=== PATIENT | female | born 1945 | race Caucasian/White ===

== ENCOUNTER 2020-05-10 08:32 | Outpatient (REF) | payer MEDICARE, SELFPAY ==
[2020-05-10 09:42] LABS: Hematocrit 41.2 % (37-47); Hemoglobin 13.6 g/dl (12.0-16.0); Mean Corpuscular Hemoglobin 30.9 pg (27.0-33.0); Mean Corpuscular Volume 93.6 fL (80-98); Mean Platelet Volume 9.5 fL (9.4-12.3); Platelet Count 431 X10*3/uL (160-400); Red Cell Distribution Width 13.4 % (11.0-16.0); White Blood Count 4.2 X10*3/uL (4.8-10.8)
[2020-05-10 10:12] LABS: Alanine Aminotransferase 17 U/L (0-31); Albumin Level 4.2 g/dL (3.5-5.0); Alkaline Phosphatase 48 U/L (39-117); Anion Gap 13 (12-20); Aspartate Amino Transferase 25 U/L (5-31); Bilirubin Total 0.5 mg/dL (0.0-1.0); Blood Urea Nitrogen 18 mg/dL (9-16); Calcium 8.9 mg/dL (8.4-10.2); Carbon Dioxide 28 mmol/L (22-29); Chloride 105 mmol/L (96-108); Cholesterol 210 mg/dL; Estimated Glomerular Filt Rate > 60; Glucose Random 91 mg/dL (60-115); HDL Cholesterol 73 mg/dL; LDL Cholesterol Calculated 115 mg/dl; Potassium 4.5 mmol/l (3.3-5.1); Sodium 141 mmol/L (135-145); Total Protein 6.4 g/dL (6.5-8.0); Triglycerides 110 mg/dL
[2020-05-10 10:34] LABS: Thyroid Stimulating Hormone 1.92 uIU/mL (0.32-4.0); Vitamin D 25-OH Total 50.9 ng/mL (>30)
== END 2020-05-10 08:33 | disposition home or self-care (01) ==
LOC: HO.LAB 08:32
PROVIDERS: PCP Nurse Practitioner Family; Visit Provider Nurse Practitioner Family
DX: E78.2 Mixed hyperlipidemia (principal); E03.9 Hypothyroidism, unspecified; M85.89 Other specified disorders of bone density and structure, multiple sites
CPT/HCPCS: 36415; 80053; 80061; 82306; 84443; 85027

== ENCOUNTER 2020-05-30 08:52 | Outpatient (REF) | payer MEDICARE, SELFPAY ==
--- NOTE | 2020-05-30 11:22 | MHC.AU.P13 ---
Adult Audiological Evaluation Date of Visit: 05/30/20 Clerical Manager Used: Not Applicable Reason for Appointment: Audiologic re-evaluation due to perceived change in hearing ability. Agnes reports she is having more difficulty understanding speech over the past 4 months. Previous Hearing Test Results: 05/27/2019 [facility] Mild dropping to profound high frequency sensorineural hearing loss bilaterally with 84% speech understanding for both ears. Medical History: Medical History: Thyroid Disease Medication List: L-Thyroxine, Pravastatin, Multi Vitamin, Calcium, Fish Oil Hearing Instrument History- Right Ear: Combat Systems Engineer: Phonak Model: Audro B 90-R Serial Number: [id number] Battery Size: Rechargeable Warranty: 06/17/2020 Service Plan: Service and L&D Dispensed By: [facility] Date of Fittin03/29/2016 Hearing Instrument History- Left Ear: Combat Systems Engineer: Phonak Model: Conductricseo B 90-R Serial Number: [id number] Battery Size: Rechargeable Warranty: 06/17/2020 Service Plan: Service andn L&D Dispensed By: [facility] Date of Fittin03/29/2016 Otoscopy: Right Ear: Unremarkable Left Ear: Unremarkable Tympanometry: Right Ear: Normal Middle Ear System (Type A) Left Ear: Normal Middle Ear System (Type A) Hearing Evaluation: Transducer(s) Used: Insert Earphones Bone Conduction Method: Conventional Audiometry Stimuli Used: Pure Tones Right Ear: Description of Hearing: Mild dropping to profound sensorineural hearing loss Left Ear: Description of Hearing: Mild dropping to profound sensorineural hearing loss Speech Recognition Threshold (SRT): Method Used: Monitored Live Voice Stimuli Used: Spondee Words Right Ear: 35 dB HL Left Ear: 40 dB HL Word Discrimination: Method: Recorded Lists Word Lists Used: NU-6 Right Ear: 88% at a listening level of 75 dB HL Left Ear: 92% at a listening level of 80 dB HL Comparison: Compared to the most recent evaluation: Hearing is stable. Recommendations: Recommendations: Audiological re-evaluation in one year. Recommendations (Other): 1) Hearing aids were cleaned and checked today, with both amplifying clearly. 2) Discussed how face masks interfer with speech understanding. Also discussed how the processing of speech slows as we age which increases difficulties understanding speech. Diagnosis: Primary Diagnosis: H90.3 Bilateral Sensorineural Hearing Loss Services Performed: Services Performed: Comprehensive Audiological Evaluation (CPT 87663) Tympanometry (CPT 26674) Signature: Provider: John Cevallos, RICHARD-A
== END 2020-05-30 08:53 | disposition home or self-care (01) ==
LOC: HO.SH 08:52
PROVIDERS: PCP Nurse Practitioner Family; Referring Provider Nurse Practitioner Family; Visit Provider Nurse Practitioner Family
DX: H90.3 Sensorineural hearing loss, bilateral (principal)
CPT/HCPCS: 92557; 92567

== ENCOUNTER 2020-12-09 17:10 | Outpatient (REF) | payer MEDICARE, SELFPAY | END 2020-12-09 17:11 | disposition home or self-care (01) | LOC: HO.LNP 17:10 | PROVIDERS: Visit Provider Hospitalist | DX: R30.0 Dysuria (principal) | CPT/HCPCS: 87086 ==

== ENCOUNTER 2020-12-16 06:16 | Outpatient (REF) | payer MEDICARE, SELFPAY ==
[2020-12-16 07:05] LABS: MANUAL DIFF FLAG NO
[2020-12-16 07:09] LABS: Basophils Percent Auto 0.8 % (0-2); Eosinophils Absolute Auto 0.2 X10*3/uL (0.0-0.4); Eosinophils Percent Auto 3.5 % (0-4); Hematocrit 37.4 % (37-47); Hemoglobin 11.9 g/dl (12.0-16.0); Imm Gran Abs Auto 0.02 X10*3/uL (0.00-0.03); Imm Gran Pct Auto 0.4 % (0.0-0.4); Lymphocytes Absolute Auto 1.5 X10*3/uL (1.2-4.9); Lymphocytes Percent Auto 29.9 % (20-40); Mean Corpuscular HGB Conc 31.8 g/dl (31.0-35.0); Mean Corpuscular Hemoglobin 29.9 pg (27.0-33.0); Mean Platelet Volume 9.1 fL (9.4-12.3); Monocytes Absolute Auto 0.4 X10*3/uL (0.1-1.2); Monocytes Percent Auto 8.8 % (2-11); Neutrophils Absolute Auto 2.8 X10*3/uL (2.0-8.3); Neutrophils Percent Auto 56.6 % (45-73); Platelet Count 576 X10*3/uL (160-400); Red Blood Count 3.98 X10*6/uL (4.20-5.50); Red Cell Distribution Width 14.5 % (11.0-16.0); White Blood Count 4.9 X10*3/uL (4.8-10.8)
[2020-12-16 07:25] LABS: Anion Gap 13 (12-20); Blood Urea Nitrogen 16 mg/dL (9-16); Calcium 9.5 mg/dL (8.4-10.2); Carbon Dioxide 27 mmol/L (22-29); Chloride 105 mmol/L (96-108); Estimated Glomerular Filt Rate > 60; Glucose Random 90 mg/dL (60-115); Potassium 4.7 mmol/L (3.3-5.1); Sodium 140 mmol/L (135-145)
== END 2020-12-16 06:17 | disposition home or self-care (01) ==
LOC: HO.LAB 06:16
PROVIDERS: PCP Nurse Practitioner Family; Visit Provider Nurse Practitioner Family
DX: K13.79 Other lesions of oral mucosa (principal); Z90.81 Acquired absence of spleen
CPT/HCPCS: 36415; 80048; 85025

== ENCOUNTER 2021-01-09 09:02 | Outpatient (REF) | payer MEDICARE, SELFPAY ==
--- NOTE | ~2021-01-09 | MM_ITS ---
EXAMINATION: MM SCREENING DIGITAL BREAST TOMOSYNTHESIS, BILATERAL CLINICAL INFORMATION: Screening. Asymptomatic. The lifetime risk of breast cancer based on the Tyrer-Cuzick Model is 3%. COMPARISON: Mammography: 01/04/2020, 12/29/2018, 12/03/2017 TECHNIQUE: Digital breast tomosynthesis is performed in both the craniocaudal and mediolateral oblique views along with computer-aided detection (CAD). Synthesized 2D images are generated from the tomosynthesis. FINDINGS: There are scattered areas of fibroglandular density (ACR BI-RADS breast composition Category b). There are no significant masses, abnormal calcifications, or other abnormalities. Parenchymal pattern is similar to prior studies. The axilla and skin contours are unremarkable. No significant changes. MM/MM tomosynthesis screening BI IMPRESSION: No mammographic evidence of malignancy. ASSESSMENT: BI-RADS 1: Negative RECOMMENDATION: Routine annual mammography screening. This patient's information was entered into a reminder system with a target due date for their next mammogram.
== END 2021-01-09 09:03 | disposition home or self-care (01) ==
LOC: HO.MAMMO 09:02
PROVIDERS: Visit Provider Nurse Practitioner Family
DX: Z12.31 Encounter for screening mammogram for malignant neoplasm of breast (principal)
CPT/HCPCS: 77063; 77067

== ENCOUNTER 2021-01-25 06:17 | Outpatient (REF) | payer MEDICARE, SELFPAY ==
[2021-01-25 11:16] LABS: MANUAL DIFF FLAG NO
[2021-01-25 11:24] LABS: Basophils Absolute Auto 0.1 X10*3/uL (0.0-0.2); Basophils Percent Auto 1.3 % (0-2); Eosinophils Absolute Auto 0.1 X10*3/uL (0.0-0.4); Eosinophils Percent Auto 2.7 % (0-4); Hematocrit 40.9 % (37-47); Hemoglobin 13.1 g/dl (12.0-16.0); Imm Gran Abs Auto 0.01 X10*3/uL (0.00-0.03); Imm Gran Pct Auto 0.2 % (0.0-0.4); Lymphocytes Absolute Auto 1.9 X10*3/uL (1.2-4.9); Lymphocytes Percent Auto 40.4 % (20-40); Mean Corpuscular Hemoglobin 29.9 pg (27.0-33.0); Mean Corpuscular Volume 93.4 fL (80-98); Monocytes Absolute Auto 0.5 X10*3/uL (0.1-1.2); Neutrophils Absolute Auto 2.2 X10*3/uL (2.0-8.3); Neutrophils Percent Auto 45.4 % (45-73); Platelet Count 414 X10*3/uL (160-400); Red Blood Count 4.38 X10*6/uL (4.20-5.50); Red Cell Distribution Width 14.2 % (11.0-16.0); White Blood Count 4.8 X10*3/uL (4.8-10.8)
[2021-01-25 11:57] LABS: Alanine Aminotransferase 11 U/L (0-31); Albumin Level 4.1 g/dL (3.5-5.0); Alkaline Phosphatase 64 U/L (39-117); Anion Gap 14 (12-20); Aspartate Amino Transferase 20 U/L (5-31); Bilirubin Total 0.4 mg/dL (0.0-1.0); Blood Urea Nitrogen 15 mg/dL (9-16); Calcium 9.2 mg/dL (8.4-10.2); Carbon Dioxide 27 mmol/L (22-29); Chloride 106 mmol/L (96-108); Cholesterol 207 mg/dL; Estimated Glomerular Filt Rate > 60; Glucose Random 93 mg/dL (60-115); HDL Cholesterol 65 mg/dL; LDL Cholesterol Calculated 124 mg/dl; Potassium 4.6 mmol/L (3.3-5.1); Sodium 142 mmol/L (135-145); Total Protein 6.7 g/dL (6.5-8.0); Triglycerides 94 mg/dL
[2021-01-25 12:14] LABS: Thyroid Stimulating Hormone 1.91 uIU/mL (0.32-4.0)
== END 2021-01-25 06:18 | disposition home or self-care (01) ==
LOC: HO.HMGCLDS 06:17
PROVIDERS: PCP Nurse Practitioner Family; Visit Provider Nurse Practitioner Family
DX: E78.00 Pure hypercholesterolemia, unspecified (principal); E03.9 Hypothyroidism, unspecified; Z85.71 Personal history of Hodgkin lymphoma
CPT/HCPCS: 36415; 80053; 80061; 84443; 85025

== ENCOUNTER 2021-01-30 10:54 | Outpatient (REF) | payer MEDICARE, SELFPAY ==
--- NOTE | ~2021-01-30 | XR_ITS ---
EXAMINATION: XR ELBOW, RIGHT CLINICAL INFORMATION: Pain. COMPARISON: None TECHNIQUE: AP, lateral, and oblique views of the right elbow. FINDINGS: There is no evidence for acute fracture or dislocation. There is degenerative change along the medial and lateral condyle indicating degeneration at the collateral complexes. No acute bony erosion. No fracture or dislocation. Soft tissue increase adjacent to the olecranon may represent bursitis. XR/XR elbow RT min 3V IMPRESSION: Degenerative changes and findings which may suggest bursitis. No acute fracture or dislocation.
== END 2021-01-30 10:55 | disposition home or self-care (01) ==
LOC: HO.HMGCX 10:54
PROVIDERS: PCP Nurse Practitioner Family; Visit Provider Nurse Practitioner Family
DX: M25.521 Pain in right elbow (principal)
CPT/HCPCS: 73080

== ENCOUNTER 2021-03-23 13:22 | Outpatient (REF) | payer MEDICARE, SELFPAY ==
--- NOTE | ~2021-03-23 | MM_ITS ---
EXAMINATION: BONE DENSITOMETRY CLINICAL INDICATION: Screening for osteoporosis. COMPARISON: Previous BD dated 12/03/2017 and baseline BD dated 04/25/2012. TECHNIQUE: Using a [employer] Magpie DXA System (software version: 13.1) manufactured by [employer], dual-energy x-ray absorptiometry was performed of the lumbar spine and left hip. The images are of good technical quality. Summary results are attached. FINDINGS: AP SPINE L1-L4 (excluding L2 and L3): The data of L1-L4 has been changed to exclude the L2 and L3 vertebral bodies, because degenerative changes at these levels may cause overestimation of lumbar spine density. Current: BMD 1.255 g/cm2, Z-score 3.1, T-score 0.7, normal, 0.8% decrease from previous, 1.4% increase from baseline (<5% change is not significant). Prior: BMD 1.265 g/cm2. Baseline: BMD 1.238 g/cm2. LEFT FEMUR, NECK: Current: BMD 0.882 g/cm2, Z-score 1.3, T-score -1.1, osteopenia. Prior: BMD 0.851 g/cm2. Baseline: BMD 0.937 g/cm2. LEFT FEMUR, TOTAL: Current: BMD 0.906 g/cm2, Z-score 1.4, T-score -0.8, normal, 6.1% decrease from previous, 11.4% decrease from baseline (<5% change is not significant). Prior: BMD 0.965 g/cm2. Baseline: BMD 1.023 g/cm2. IDENTIFIED RISK FACTORS: Early menopause, bilateral oophorectomy, height loss, history of fracture (adult), hysterectomy, low body weight, osteoporosis, recurrent falls, rheumatoid arthritis, secondary osteoporosis. HISTORY OF FRACTURE: Shoulder. MEDICATIONS: Calcium/multivitamin. MM/XR DEXA axial skeleton IMPRESSION: 1. DIAGNOSIS: Osteopenia based on the lowest T-score value of -1.1 in the femoral neck applying World Health Organization criteria. 2. 10-YEAR FRACTURE RISK PREDICTION, FRAX: Major osteoporotic fracture (clinical spine, forearm, hip or shoulder) 18.1%. Hip fracture 3.5%. 3. Treatment Recommendations: NOF guidelines recommend consideration for treatment in postmenopausal women and men age 50 and older presenting with the following: -A hip or vertebral (clinical or morphometric) fracture. -T-score less than or equal to -2.5 at the femoral neck or spine after appropriate evaluation to exclude secondary causes. -Low bone mass at the hip or spine and a 10-year fracture probability by FRAX of greater than or equal to 3% for hip fracture or greater than or equal to 20% for major osteoporotic fracture based on the [place] adapted WHO algorithm. 4. Other Recommendations: All treatment decisions require clinical judgment and consideration of individual patient factors, including patient preferences, comorbidities, previous drug use, risk factors not captured in the FRAX model (e.g. frailty, falls, vitamin D deficiency, increased bone turnover, interval significant decline in bone density) and possible under or overestimation of fracture risk by FRAX. Additional medical evaluation for secondary cause of low bone mineral density may be appropriate. FUTURE SCAN RECOMMENDATION: People with diagnosed cases of osteoporosis or at high risk for fracture should have regular bone mineral density tests. For patients eligible for Medicare, routine testing is allowed once every 2 years. The testing frequency can be increased to one year for patients who have rapidly progressing disease, those who are receiving or discontinuing medical therapy to restore bone mass, or have additional risk factors.
== END 2021-03-23 13:23 | disposition home or self-care (01) ==
LOC: HO.MAMMO 13:22
PROVIDERS: Visit Provider Nurse Practitioner Family
DX: Z13.820 Encounter for screening for osteoporosis (principal); Z78.0 Asymptomatic menopausal state
CPT/HCPCS: 77080

== ENCOUNTER 2021-05-31 11:22 | Outpatient (REF) | payer MEDICARE, SELFPAY ==
--- NOTE | 2021-06-13 08:12 | MHC.AU.AHA ---
Adult Audiological Evaluation Date of Visit: 05/31/21 Clinical Quality Assurance Specialist Used: Not Applicable Reason for Appointment: Audiologic re-evaluation due to increasing difficulties hearing. Agnes reports she frequently needs to increase the volume of the hearing aids. Since being seen in May 2020, Agnes had shoulder surgery, but then fell and injured the same shoulder 2 weeks after surgery. No further treatment can be performed on the shoulder. Also following the surgery, Agnes developed a severe mouth problem/infection and lost 18 lbs in a very short period of time. An oral procedure was performed and the problem resolved. Previous Hearing Test Results: 05/30/2020 [facility] Mild dropping to profound sensorineural hearing loss bilaterally with 88% speech understanding for the right ear at 75 dB HL and 92% for the left ear at 80 dB HL Medical History: Medical History: Thyroid Disease, Hodgkin's Disease stage 2B treated with radiation in 1990 and Lung Cancer stage 3A treated with Chemotherapy in 2006 Medication List: L-Thyroxine, Pravastatin, Nexium, Escitalopram Hearing Instrument History- Right Ear: Account Leader: PhonMy Point...Exactly Model: Mercury Intermediaro B 90-R Serial Number: [id number] Battery Size: Rechargeable Repair Warranty: 06/17/2020 Dispensed By: [facility] Date of Fittin03/29/2016 Hearing Instrument History- Left Ear: Account Leader: Phonak Model: Mercury Intermediaeo B 90-R Serial Number: [id number] Battery Size: Rechargeable Warranty: 06/17/2020 Dispensed By: [facility] Date of Fittin03/29/2016 Otoscopy: Right Ear: Unremarkable Left Ear: Unremarkable Tympanometry: Not performed at today's visit as all previous tympanometry results have indicated normal middle ear function for both ears. Hearing Evaluation: Transducer(s) Used: Insert Earphones Bone Conduction Method: Conventional Audiometry Stimuli Used: Pure Tones Right Ear: Description of Hearing: Mild to moderate loss 250-2000 Hz, dropping to a profound high frequency sensorineural hearing loss. Left Ear: Description of Hearing: Mild to moderate loss 250-2000 Hz, dropping to a profound high frequency sensorineural hearing loss. Left ear thresholds are 10-15 dB poorer than the right at 250 and 4003-5740 Hz. Speech Recognition Threshold (SRT): Method Used: Monitored Live Voice Stimuli Used: Spondee Words Right Ear: 35 dB HL Left Ear: 40 dB HL Word Discrimination: Method: Recorded Lists Word Lists Used: NU-6 Right Ear: 88% at 75 dB HL Left Ear: 76% at 80 dB HL Comparison: Compared to most recent evaluation: Overall 5 dB decrease in thresholds for both ears with a slight decrease in speech discrimination, left ear poorer than right. Recommendations: Hearing aid maintenance performed today. Hearing aid(s) reprogrammed with updated test results. Audiological re-evaluation in one year. Will send a reminder card. Diagnosis: Primary Diagnosis: H90.3 Bilateral Sensorineural Hearing Loss Services Performed: Comprehensive Audiological Evaluation (CPT 74528) Signature: Provider: John Cevallos, RICHARD-A
== END 2021-05-31 11:23 | disposition home or self-care (01) ==
LOC: HO.SH 11:22
PROVIDERS: Visit Provider Nurse Practitioner Family
DX: H90.3 Sensorineural hearing loss, bilateral (principal)
CPT/HCPCS: 92557

== ENCOUNTER 2022-01-11 07:52 | Outpatient (REF) | payer MEDICARE, SELFPAY ==
--- NOTE | ~2022-01-11 | MM_ITS ---
EXAMINATION: MM SCREENING DIGITAL BREAST TOMOSYNTHESIS, BILATERAL CLINICAL INFORMATION: Screening. Asymptomatic. The lifetime risk of breast cancer based on the Tyrer-Cuzick Model is 1.8%. COMPARISON: Mammography: 01/09/2021 and studies dating back to 09/02/2013. TECHNIQUE: Digital breast tomosynthesis is performed in both the craniocaudal and mediolateral oblique views along with computer-aided detection (CAD). Synthesized 2D images are generated from the tomosynthesis. FINDINGS: There are scattered areas of fibroglandular density (ACR BI-RADS breast composition Category b). There is a stable parenchymal pattern of the right breast with no new abnormal dominant mass or suspicious grouping of microcalcifications. Within the upper outer aspect of the left breast approximately 6 cm from the nipple, there is a 1.3 x 0.5 cm partially circumscribed density for which spot compression views are recommended. MM/MM tomosynthesis screening BI IMPRESSION: Left breast density for further evaluation as described. ASSESSMENT: BI-RADS 0: Incomplete - Need Additional Imaging Evaluation RECOMMENDATION: 1. Additional views of the left breast. 2. Targeted ultrasound if warranted after review of the additional views. 3. Radiology department staff will contact the patient for additional imaging. This patient's information was entered into a reminder system with a target due date for their next mammogram.
== END 2022-01-11 07:53 | disposition home or self-care (01) ==
LOC: HO.MAMMO 07:52
PROVIDERS: Visit Provider Nurse Practitioner Family
DX: Z12.31 Encounter for screening mammogram for malignant neoplasm of breast (principal)
CPT/HCPCS: 77063; 77067

== ENCOUNTER 2022-01-22 12:57 | Outpatient (REF) | payer MEDICARE, SELFPAY ==
--- NOTE | ~2022-01-22 | MM_ITS ---
EXAMINATION: MM DIAGNOSTIC DIGITAL BREAST TOMOSYNTHESIS, LEFT CLINICAL INFORMATION: Recall from screening for question of asymmetric density upper outer left breast. COMPARISON: Mammography: 01/11/2022, 01/09/2021, 01/04/2020 TECHNIQUE: Digital breast tomosynthesis is performed. 2D images are generated from the tomosynthesis. The following views are obtained: Spot CC, spot MLO. FINDINGS: There are scattered areas of fibroglandular density (ACR BI-RADS breast composition Category b). Additional views show no interval mass or architectural abnormality or developing density. Parenchymal pattern is similar to prior study. No interval asymmetric density. Results are discussed with the patient at time of visit. MM/MM tomosynthesis added views L IMPRESSION: Additional views show no significant changes from prior studies. No interval asymmetric density, mass, architectural abnormality. ASSESSMENT: BI-RADS 2: Benign RECOMMENDATION: Routine annual mammography screening. This patient's information was entered into a reminder system with a target due date for their next mammogram.
== END 2022-01-22 12:58 | disposition home or self-care (01) ==
LOC: HO.MAMMO 12:57
PROVIDERS: Visit Provider Nurse Practitioner Family
DX: R92.2 Inconclusive mammogram (principal)
CPT/HCPCS: 77061; 77065

== ENCOUNTER 2022-01-29 06:02 | Outpatient (REF) | payer MEDICARE, SELFPAY ==
[2022-01-29 11:11] LABS: MANUAL DIFF FLAG NO
[2022-01-29 11:47] LABS: Basophils Absolute Auto 0.1 X10*3/uL (0.0-0.2); Basophils Percent Auto 1.4 % (0-2); Eosinophils Absolute Auto 0.2 X10*3/uL (0.0-0.4); Eosinophils Percent Auto 4.8 % (0-4); Hematocrit 38.4 % (37.0-47.0); Hemoglobin 12.8 g/dl (12.0-16.0); Lymphocytes Absolute Auto 1.9 X10*3/uL (1.2-4.9); Lymphocytes Percent Auto 43.2 % (20-40); Mean Corpuscular HGB Conc 33.3 g/dl (31.0-35.0); Mean Corpuscular Hemoglobin 30.6 pg (27.0-33.0); Mean Corpuscular Volume 91.9 fL (80.0-98.0); Mean Platelet Volume 10.2 fL (9.4-12.3); Monocytes Absolute Auto 0.3 X10*3/uL (0.1-1.2); Monocytes Percent Auto 7.5 % (2-11); Neutrophils Absolute Auto 1.9 x10*3/uL (2.0-8.3); Neutrophils Percent Auto 43.1 % (45-73); Platelet Count 364 X10*3/uL (160-400); Red Blood Count 4.18 X10*6/uL (4.20-5.50); Red Cell Distribution Width 13.6 % (11.0-16.0); White Blood Count 4.4 X10*3/uL (4.8-10.8)
[2022-01-29 12:01] LABS: Alanine Aminotransferase 12 U/L (0-31); Albumin Level 4.2 g/dL (3.5-5.0); Alkaline Phosphatase 57 U/L (39-117); Anion Gap 14 (12-20); Aspartate Amino Transferase 22 U/L (5-31); Bilirubin Total 0.7 mg/dL (0.0-1.0); Blood Urea Nitrogen 17 mg/dL (9-16); Calcium 9.1 mg/dL (8.4-10.2); Carbon Dioxide 25 mmol/L (22-29); Chloride 105 mmol/L (96-108); Cholesterol 212 mg/dL; Estimated Glomerular Filt Rate > 60; Glucose Random 94 mg/dL (60-115); HDL Cholesterol 70 mg/dL; LDL Cholesterol Calculated 128 mg/dl; Potassium 4.3 mmol/L (3.3-5.1); Sodium 140 mmol/L (135-145); Total Protein 6.4 g/dL (6.5-8.0); Triglycerides 70 mg/dL
== END 2022-01-29 06:03 | disposition home or self-care (01) ==
LOC: HO.HMGCLDS 06:02
PROVIDERS: PCP Nurse Practitioner Family; Visit Provider Nurse Practitioner Family
DX: E78.00 Pure hypercholesterolemia, unspecified (principal); E03.9 Hypothyroidism, unspecified
CPT/HCPCS: 36415; 80053; 80061; 84443; 85025

== ENCOUNTER 2022-06-13 08:05 | Outpatient (REF) | payer MEDICARE, SELFPAY | END 2022-06-13 08:06 | disposition home or self-care (01) | LOC: HO.SH 08:05 | PROVIDERS: Visit Provider Nurse Practitioner Family | DX: Z01.118 Encounter for examination of ears and hearing with other abnormal findings (principal); H90.3 Sensorineural hearing loss, bilateral | CPT/HCPCS: 92557; 92567 ==

== ENCOUNTER 2023-01-16 07:58 | Outpatient (REF) | payer MEDICARE, SELFPAY ==
--- NOTE | ~2023-01-16 | MM_ITS ---
EXAMINATION: MM SCREENING DIGITAL BREAST TOMOSYNTHESIS, BILATERAL CLINICAL INFORMATION: Screening. Asymptomatic. The lifetime risk of breast cancer based on the Tyrer-Cuzick Model is 1.6%. COMPARISON: Mammography: This study is compared with prior exams dating back to 2018. TECHNIQUE: Digital breast tomosynthesis is performed in both the craniocaudal and mediolateral oblique views along with computer-aided detection (CAD). Synthesized 2D images are generated from the tomosynthesis. FINDINGS: There are scattered areas of fibroglandular density (ACR BI-RADS breast composition Category b). There are no significant masses, abnormal calcifications, or other abnormalities. MM/MM tomosynthesis screening BI IMPRESSION: No mammographic evidence of malignancy. ASSESSMENT: BI-RADS BI-RADS 1 - Negative RECOMMENDATION: Routine annual mammography screening. 1 year F/U This examination should not preclude the clinical evaluation of a suspicious palpable abnormality. This patient's information was entered into a reminder system with a target due date for their next mammogram.
== END 2023-01-16 07:59 | disposition home or self-care (01) ==
LOC: HO.MAMMO 07:58
PROVIDERS: PCP Nurse Practitioner Family; Visit Provider Nurse Practitioner Family
DX: Z12.31 Encounter for screening mammogram for malignant neoplasm of breast (principal)
CPT/HCPCS: 77063; 77067

== ENCOUNTER → 2023-01-16 08:00 | Outpatient (BNV) | payer MEDICARE, SELFPAY | PROVIDERS: PCP Nurse Practitioner Family; Visit Provider Radiology Diagnostic Radiology | DX: Z12.31 Encounter for screening mammogram for malignant neoplasm of breast (principal) | CPT/HCPCS: 77063; 77067 ==

== ENCOUNTER 2023-02-14 10:30 | Outpatient (REF) | payer SELFPAY | END 2023-02-14 10:31 | disposition home or self-care (01) | LOC: HO.HAP 10:30 | PROVIDERS: Visit Provider Nurse Practitioner Family | DX: Z13.89 Encounter for screening for other disorder (principal) ==

== ENCOUNTER 2023-03-04 10:12 | Outpatient (REF) | payer SELFPAY | END 2023-03-04 10:13 | disposition home or self-care (01) | LOC: HO.HAP 10:12 | PROVIDERS: Visit Provider Nurse Practitioner Family | DX: Z46.1 Encounter for fitting and adjustment of hearing aid (principal) | CPT/HCPCS: V5299 ==

== ENCOUNTER 2023-07-31 07:53 | Outpatient (REF) | payer MEDICARE, SELFPAY | END 2023-07-31 07:54 | disposition home or self-care (01) | LOC: HO.SH 07:53 | PROVIDERS: Visit Provider Nurse Practitioner Family | DX: Z01.118 Encounter for examination of ears and hearing with other abnormal findings (principal); H90.3 Sensorineural hearing loss, bilateral | CPT/HCPCS: 92557 ==

== ENCOUNTER 2023-07-31 09:05 | Outpatient (REF) | payer SELFPAY ==
--- NOTE | 2023-07-31 12:58 | MHC.AU.HA1 ---
Hearing Aid Evaluation Date of Visit: 07/31/23 Historical Information: Description of Hearing: Mild sloping to profound sensorineural hearing loss, bilaterally Current personal amplification information: Phonak Audeo B90-R fit in March 2016 Summary: Agnes reported an intermittent static from her left hearing aid. Instead of repairing this device, she opted to pursue new hearing aids due to the age of her current devices. Discussed possible third-alliance party through her [employer] Advantage insurance. Explained if there is a 3rd alliance party administered benefit, she would not be able to utilize it here. However, Agnes prefers to remain a patient here. She understands that we cannot bill her insurance for hearing aids, it would be an [id number] expense, and she would likely not get reimbursed through her insurance if there is a 3rd-alliance party benefit. Will stay with Phonak hearing aids, as Agnes has always been satisfied with her current devices. Discussed acoustic coupling and benefits of changing to custom ear mold. Also discussed changes to sound quality with ear mold including sound of own voice which will take some time to adjust to. Agnes was agreeable to an ear mold - Impressions taken, bilaterally without incident. Ordered hearing aids/sent impressions to [facility]. Hearing Aid Prescription: Based on the individual?s shared listening needs, communication environments, dexterity, desire for connectivity, and personal preferences, the following prescription for amplification has been made: Right ear: Make, Model, Color: Phonak Audeo L70-RT Color: Silver Gates Battery Size: Rechargeable Patient Care Associate/Slim Tube: 0P Type of Earmold/Dome/CShell/SlimTip: c-shell Left ear: Left ear prescription to be same as Right Hearing Aid above: Make, Model, Color: Phonak Audeo L70-RT Color: Silver Gates Battery Size: Rechargeable Patient Care Associate/Slim Tube: 0P Type of Earmold/Dome/CShell/SlimTip: c-shell Accessories/Assistive Technology: Barrel Drum Cutter Plan of Care: Patient wishes to purchase hearing aids as prescribed Action Taken/Action Needed: Hearing Instrument Fitting to be scheduled when materials arrive Primary Diagnosis: H90.3 Bilateral Sensorineural Hearing Loss Signature: Provider: Chan Chow, [facility]
== END 2023-07-31 09:06 | disposition home or self-care (01) ==
LOC: HO.HAP 09:05
PROVIDERS: Visit Provider Nurse Practitioner Family
DX: Z46.1 Encounter for fitting and adjustment of hearing aid (principal); H90.3 Sensorineural hearing loss, bilateral
CPT/HCPCS: 92590

== ENCOUNTER 2023-08-28 12:52 | Outpatient (REF) | payer SELFPAY ==
--- NOTE | 2023-08-28 15:51 | MHC.AU.HA2 ---
Hearing Instrument Fitting- Adult- Binaural Date of Visit: 08/28/23 Hearing Instruments Dispensed: Right Ear: Make, Model, Color, Serial Number: Tatiana Fernando L70-RT SN: [id number] Color: Silver Gates Showroom Manager Repair Warranty: 09/15/2026 Showroom Manager Loss and Damage Warranty: 09/15/2026 [facility] Service Plan: OPTED OUT Battery Size: Rechargeable Hydro Sprayer Operator/Slim Tube: 0P Earmold/Dome/CShell/SlimTip: c-shell SN: [id number] Betty: 11/14/2023 Type of Wax Guard: CeruStop Left Ear: Make, Model, Color, Serial Number: Tatiana Gonzalezo L70-RT SN: [id number] Color: Silver Gates Showroom Manager Repair Warranty: 09/15/2026 Showroom Manager Loss and Damage Warranty: 09/15/2026 [facility] Service Plan: OPTED OUT Battery Size: Rechargeable Hydro Sprayer Operator/Slim Tube: 0P Earmold/Dome/CShell/SlimTip: c-shell SN: [id number] Betty: 11/14/2023 Type of Wax Guard: CeruStop Accessories/Assistive Technology: Phonak softball player ease SN: [id number] Summary of Fitting: Ran feedback analyzer and real ear measures. Comfortable at real ear settings. Reviewed care, use, and rechargeability including changing wax guard and manually turning on/off. VC enabled; however, did not discuss use as Agnes would like the hearing aids to be all automatic. She never used the VC on her old hearing aids. As a long time hearing aid user, Agnes was familiar with general maintenance. Practiced insertion and removal as Agnes now has a c-shell (previously used open domes). Took some practice but able to insert successfully multiple times. Instructed to ensure ear mold is in proper orientation (wax guard directed down canal, words facing away) prior to trying to insert it. With the new hearing aids, Agnes immediately noticed that she was not straining as much to hear and understand the conversation. Provided an itemized receipt and filled out paperwork for Agnes to submit to her insurance for reimbursement at her request, even though it was discussed at her previous appointment. Recommendations: A hearing instrument follow-up was scheduled. Diagnosis Code(s): Primary Diagnosis: H90.3 Bilateral Sensorineural Hearing Loss Signature: Provider: Chan Chow, [facility]
== END 2023-08-28 12:53 | disposition home or self-care (01) ==
LOC: HO.HAP 12:52
PROVIDERS: Visit Provider Internal Medicine
DX: Z46.1 Encounter for fitting and adjustment of hearing aid (principal); H90.3 Sensorineural hearing loss, bilateral
CPT/HCPCS: V5261; V5264; V5299

== ENCOUNTER 2023-08-29 09:09 | Outpatient (REF) | payer MEDICARE, SELFPAY ==
--- NOTE | ~2023-08-29 | CT_ITS ---
EXAMINATION: CT CHEST WITH CONTRAST CLINICAL INFORMATION: Malignant neoplasm of bronchus with dyspnea on exertion. COMPARISON: Chest radiograph 05/27/2019, CT chest 04/17/2017. TECHNIQUE: Multidetector volumetric CT imaging of the chest was obtained after the administration of 65 mL of Omnipaque 350 intravenous contrast without immediate adverse reactions. Axial MIP volume rendering provided. Sagittal and coronal reformatted images were obtained. This CT examination was performed using dose optimization techniques as appropriate, variously including the following: *Automated exposure control *Adjustment of mA and/or kV according to patient size (this includes techniques or standardized protocols for targeted exams where dose is matched to indication/reason for exam; i.e. extremities or head) *Use of iterative reconstruction technique DLP: 65 mGy-cm FINDINGS: LUNGS: Biapical pleural-parenchymal scarring is present. Mild emphysematous changes are seen. Mild saber sheath trachea present. Status post right upper lobectomy. Small pulmonary nodules are unchanged including a 4 mm left upper lobe nodule (5:39 compare prior 6:96) and a 3 mm right upper lobe nodule medially (5:102 compare prior 6:275). No new or worrisome lung nodule is seen to suggest metastatic disease. No consolidations. MEDIASTINUM: Calcified nonenlarged mediastinal lymph nodes are again seen. No mediastinal or hilar lymphadenopathy. Moderate coronary calcification is seen. Heart size normal. The thyroid is not well seen. PLEURA: There is no pleural effusion. No pleural mass or thickening. AXILLA: No lymphadenopathy. UPPER ABDOMEN: Unremarkable. OSSEOUS STRUCTURES: There are old healed right-sided rib fractures. There is a new right shoulder prosthesis compared to the 04/17/[address]/CT chest w IV con IMPRESSION: 1. Status post right upper lobectomy with no evidence of recurrent or metastatic disease. 2. Incidental note made of mild emphysema, stable small pulmonary nodules and other findings described above. 3. A definite cause for the patient's dyspnea on exertion has not been found. Fleischner guidelines were followed.
[2023-08-29] MEDS: iohexoL 350 MG/ML 100 ML INFUS..BTL 65 ML IV (09:48)
== END 2023-08-29 09:10 | disposition home or self-care (01) ==
LOC: HO.CT 09:09
PROVIDERS: PCP Nurse Practitioner Family; Visit Provider Nurse Practitioner Family
DX: R06.09 Other forms of dyspnea (principal); Z85.118 Personal history of other malignant neoplasm of bronchus and lung
CPT/HCPCS: 71260; Q9967

== ENCOUNTER → 2023-08-30 07:00 | Outpatient (BNV) | payer OTHER, SELFPAY | PROVIDERS: PCP Nurse Practitioner Family; Visit Provider Internal Medicine Cardiovascular Disease | DX: I35.1 Nonrheumatic aortic (valve) insufficiency (principal); I36.1 Nonrheumatic tricuspid (valve) insufficiency | CPT/HCPCS: 93306 ==

== ENCOUNTER 2023-08-30 08:25 | Outpatient (REF) | payer MEDICARE, SELFPAY ==
--- NOTE | 2023-08-30 08:57 | MHC.AU.HA3 ---
Hearing Instrument Follow-Up- Binaural Date of Visit: 08/30/23 Right Ear: Make, Model, Color, Serial Number: Tatiana Fernando [id number] SN: [id number] Color: Silver Gates Front End Manager Repair Warranty: 09/15/2026 Front End Manager Loss and Damage Warranty: 09/15/2026 [facility] Service Plan: OPTED OUT Battery Size: Rechargeable Car Hostler/Slim Tube: 0P Earmold/Dome/CShell/SlimTip:c-shell SN: [id number] Betty: 11/14/2023 Type of Wax Guard: CeruStop Dispensed By: [facility] Date of Fittin08/28/2023 Left Ear: Johnathan, Model, Color, Serial Number: Tatiana Fernando [id number]-[id number] SN: [id number] Color: Silver Gates Front End Manager Repair Warranty: 09/15/2026 Front End Manager Loss and Damage Warranty: 09/15/2026 [facility] Service Plan: OPTED OUT Battery Size: Rechargeable Car Hostler/Slim Tube: 0P Earmold/Dome/CShell/SlimTip: c-shell SN: [id number] Betty: 11/14/2023 Type of Wax Guard: CeruStop Dispensed By: [facility] Date of Fittin08/28/2023 Follow-Up Summary: Recently fit with new aids and c-shells. Reports that everything is too loud. She is hearing sounds in her house that she was not previously aware of and it is overwhelming. Counseled on adjustment to changes in amplification, advised that she should hear her spud grader running or her floors creaking, and that all of these sounds should feel less annoying with time. Reduced gain to 85% to take the edge off. Reports left c-shell is hurting outer edge of larry. Sanded some material off in that area to reduce pressure. Improvement reported. Recommendations: Return for follow up as previously scheduled. Diagnosis Code(s): Primary Diagnosis: H90.3 Bilateral Sensorineural Hearing Loss Signature: Provider: Chan Montejo, CCC-A
== END 2023-08-30 08:26 | disposition home or self-care (01) ==
LOC: HO.HAP 08:25
PROVIDERS: Visit Provider Nurse Practitioner Family
DX: Z13.89 Encounter for screening for other disorder (principal)

== ENCOUNTER → 2023-08-30 10:48 | Outpatient (REF) | payer MEDICARE, SELFPAY ==
--- NOTE | 2023-08-30 07:00 | CA_ITS ---
Transthoracic Echocardiogram Patient (Last, First, Middle): Agnes Joseph C Gender: Female Date of : 1945 Age: 78 Procedure Date: 08/30/2023 Procedure Type: Transthoracic Echocardiogram Location: OP Height: 149.86 cm Weight: 44.91 kg BSA: 1.37 m2 Heart Rate: bpm BP: 118 / 60 mmHg Music Specialist: TO Referring MD: Michelle Henderson NP Symptoms: ABN. EKG Study Quality: Fair/Contrast Conclusions: - Normal left ventricular size and systolic function. The visually estimated ejection fraction is between 60-65%. - Spectral Doppler is indicative of an impaired relaxation filling pattern. Elevated filling pressures. There is mild septal asymmetric hypertrophy. - Normal right ventricular cavity size and systolic function. - There is moderate aortic valve regurgitation. Findings Procedure Information Contrast agent, definity, is being given per protocol without apparent complications. Left Ventricle Normal left ventricular size and systolic function. The visually estimated ejection fraction is between 60-65%. There is no evidence of regional wall motion abnormalities. Abnormal diastolic function is noted. Spectral Doppler is indicative of an impaired relaxation filling pattern. Elevated filling pressures. There is mild septal asymmetric hypertrophy. Right Ventricle Normal right ventricular cavity size and systolic function. Atria The left atrium is mildly dilated. The right atrium is normal in size. Aortic Valve There is a normal trileaflet aortic valve. There is mild calcification of the aortic valve. There is no aortic valve stenosis. There is moderate aortic valve regurgitation. Mitral Valve There is mild mitral annular calcification. There is trace mitral valve regurgitation. There is no mitral valve stenosis. Pulmonic Valve Normal pulmonic valve structure and function. There is trace pulmonic valve regurgitation. Tricuspid Valve Normal tricuspid valve structure. There is mild tricuspid valve regurgitation. Normal right atrial pressure. There is no evidence of pulmonary hypertension. Great Vessels All visible segments of the aorta are normal in size. The visualized portions of the pulmonary artery and branches are normal. Venous The inferior vena cava is normal in size and collapses greater than 50% with inspiration. Pericardium/Pleural There is no evidence of pericardial effusion. Measurements 2D Linear Measurements IVSd: 1.07 0.6-0.9/0.6-1.0 cm LVIDd: 4.06 3.9-5.3/4.2-5.9 cm LVIDd Index: 2.96 2.4-3.2/2.2-3.1 cm/m2 LVIDs: 2.58 2.0-3.6 cm LVPWd: 0.62 0.7-1.1 cm LA Diam: 2.80 2.7-3.8/3.0-4.0 cm LAIDs Index: 2.04 1.5-2.3 cm/m2 LV Mass: 127.60 67-162/88-224 g LV Mass Index: 93.14 43-95/49-115 g/m2 LVOT Diam: 2.00 3.0+(-)1.3 cm 2D Systolic Function EF 4C: 59.10 >55% Mitral Valve MV VTI: 0.39 MV Pk Donell: 1.35 MV Mn Donell: 1.03 MV Pk Grad: 7.00 MV Mn Grad: 5.00 MV Pk E: 1.11 MV PK A: 1.17 MV Decel Time: 196.00 E/A: 0.90 E'Lateral: 5.22 E'Medial: 5.22 E/E' Med: 21.30 E/E' Lat: 21.30 PHT: 57.00 MVA PHT: 3.86 MVA Continuity: 2.06 Decel Campbell: 5.69 Aortic Valve AI Pk Donell: 4.10 AI Campbell: 2.71 LVOT LVOT Pk Donell: 0.89 LVOT Mn Donell: 0.57 LVOT VTI: 0.26 LVOT Pk Grad: 3.00 LVOT Mn Grad: 2.00 LVOT Diam: 2.00 LVOT Area: 3.14 Diastolic Function MV Pk E: 1.11 MV Pk A: 1.17 E/A: 0.90 E'Medial: 5.22 E/E' Med: 21.30 E' Laterial: 5.22 E/E' Lat: 21.30 Right Ventricle TAPSE (mm): 24.70 TVS' Donell: 10.40 Tricuspid Valve TR Pk Donell: 2.50 TR Pk Grad: 25.00 RA Press: 3.00 RVSP: 28.00 Great Vessels Aorta Sinus of Valsalva: 3.19 2.0-3.5 cm Updated in Other Vendor System with Status of Final Robbin Gaines MD electronically signed on 09/03/2023 6:11:01 AM with status of Final
== END ==
LOC: HO.CARD 10:48
PROVIDERS: PCP Nurse Practitioner Family; Visit Provider Nurse Practitioner Family
DX: R94.31 Abnormal electrocardiogram [ECG] [EKG] (principal); R06.09 Other forms of dyspnea
CPT/HCPCS: 93306; Q9957

== ENCOUNTER 2023-09-11 12:18 | Outpatient (AMB) | payer OTHER, SELFPAY ==
[2023-09-11 12:32] VITALS: BP 130/70; PULSE 79; BMI 20.9
--- NOTE | 2023-09-11 12:32 | MHC.OFFVIS ---
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/ Michelle Henderson/increasing mccartney Intake Note: NPV w/ EKG Cloth Cutting Inspector Required: No Accompanied by: Self / Same As Patient Allergies codeine [CODEINE] Allergy (Severe, Verified 09/11/23 12:33) HYPOTENSION morphine [MORPHINE] Allergy (Severe, Verified 09/11/23 12:33) hives,HYPOTENSION acetaminophen [Percocet] Allergy (Unknown, Verified 09/11/23 12:33) Vomiting oxycodone [From Percocet] Adverse Reaction (Mild, Verified 09/11/23 12:33) VOMITING morphine Allergy (Unknown, Uncoded 09/11/23 12:33) hives percocet Allergy (Unknown, Uncoded 09/11/23 12:33) vomiting Medication List - Last Reconciled 09/11/23 by Marc Montana MD escitalopram oxalate 5 mg PO DAILY esomeprazole magnesium 40 mg PO DAILY levothyroxine 88 mcg PO pravastatin 20 mg PO DAILY HPI HPI Comments History of Present Illness Details Agnes is here for consultation regarding shortness of breath. We had seen her about 10 years ago. Approximately 2014. She has a history of Hodgkin's lymphoma and had chest radiation more than 25+ years ago. She also has a history of lung cancer and had right upper lobectomy in 2006. Of note, he actually saw her in 2014 for shortness of breath/chest pain but workup was unremarkable. She states that after that she actually felt better for a while but more recently again feeling short of breath with activity. No clear anginal-type chest pains. No history of any cardiac issues like coronary disease or myocardial infarction or cardiomyopathy. [facility] Medical History (Updated 09/11/23 @ 12:53 by Marc Montana MD) Depression Hypothyroidism Lung cancer Hodgkin disease Surgical History (Updated 09/11/23 @ 12:34 by Madeline Choi) S/P right rotator cuff repair Family History (Updated 09/11/23 @ 12:35 by Madeline Choi) Mother No problems noted. Father No problems noted. Social History (Updated 09/11/23 @ 12:35 by Madeline Choi) Alcohol intake: current Alcohol intake frequency: holidays/special occasions only Alcohol type: wine Patient Tobacco Use Status: Never used Tobacco Review of Systems Const Denies chills, Denies daytime sleepiness, Denies fatigue, Denies fever(s), Denies frequent falls, Denies night sweats, Denies snoring, Denies weakness, Denies weight gain and Denies weight loss Eyes Denies loss of vision ENT Denies dizziness and Denies hearing loss Card Denies chest pain, Denies chest pain with activity, Denies syncope, Denies rapid heart rate, Denies edema, Denies claudication, Denies leg edema, Denies lightheadedness, Denies palpitations and Denies orthopnea Resp Denies cough, Denies excessive phlegm production, Denies snoring and Denies wheezing GI Denies abdominal pain, Denies hematochezia, Denies change in bowel habits, Denies change in stool character, Denies heartburn, Denies nausea and Denies vomiting Denies hematuria, Denies urinary frequency and Denies dysuria Musc Denies arthralgias, Denies muscle weakness, Denies numbness and Denies tingling Skin/Breast Denies nail changes and Denies rash Neuro Denies Abnormal speech present, Denies dizziness, Denies syncope, Denies frequent falls, Denies loss of vision, Denies memory loss, Denies numbness, Denies tingling and Denies weakness Psych Denies depression and Denies memory loss Endo Denies fatigue and Denies palpitations Aller/Immun Denies wheezing Physical Exam Vital Signs: Last Vital Signs Pulse 79 09/11/23 12:32 BP 130/70 09/11/23 12:32 BMI result Body Mass Index 20.9 Const General: comfortable and no acute distress Orientation/consciousness: patient oriented x3 HEENT Other: Unremarkable Head: Yes normal to inspection Neck Neck: Yes normal visual inspection Chest Chest palpation & inspection: normal inspection of the chest Resp Auscultation: clear to auscultation bilaterally Cardio Palpation: normal PMI Heart sounds: S1 normal heart sound present, S2 normal heart sound present, no gallops, no murmurs and no rubs GI Palpation (GI): Soft to palpation Back/Spine/Pelvis Other: unremarkable Skin General skin exam: no rashes or lesions noted Neuro General: patient oriented x3 Speech: No Abnormal speech present Extrem General: Yes normal to inspection Psych Mental Status: mental status grossly normal Office Procedures EKG Details: EKG with sinus rhythm at 79/Min; incomplete right bundle-branch block and possible right ventricular hypertrophy; [place] [id number], Complete Assessment & Plan Assessment & Plan (1) Shortness of breath: Code(s): R06.02 - Shortness of breath Plan In the recent echocardiogram, LVEF 60-65%. Mild diastolic dysfunction. There is description of moderate aortic regurgitation-however, on clinical exam, no clear murmur. IVC normal size and collapsing well. In the chest CT scan, moderate coronary artery calcification. There is right upper lobectomy noted. Mild emphysema. Based on the above, no clear cardiac etiology to explain her shortness of breath. We can do an exercise stress perfusion imaging study for further evaluation. If that is unremarkable, then consider pulmonary evaluation with PFTs. Orders: Orders CA stress test Today R06.02 - Shortness of breath, R07.2 - Precordial pain NM cardiolite stress test Today R06.02 - Shortness of breath, R07.2 - Precordial pain Coding Level of Care Code New Pt Level 4 (09970) Diagnoses Shortness of breath R06.02 CPT Codes EKG - CPT: 35917-[id number], Complete ([id number])
== END 2023-09-11 12:52 | disposition home or self-care (01) ==
PROVIDERS: PCP Nurse Practitioner Family; Visit Provider Internal Medicine
DX: R06.02 Shortness of breath (principal)
CPT/HCPCS: 93010; 99204

== ENCOUNTER → 2023-09-11 12:18 | Outpatient (BNVA) | payer OTHER, SELFPAY | PROVIDERS: PCP Nurse Practitioner Family; Visit Provider Internal Medicine | DX: R06.02 Shortness of breath (principal); R07.2 Precordial pain | CPT/HCPCS: 93005 ==

== ENCOUNTER → 2023-09-17 10:22 | Outpatient (REF) | payer OTHER, SELFPAY ==
--- NOTE | ~2023-09-17 | NM_ITS ---
Exercise Myocardial perfusion study Indication: Precordial chest pain and shortness of breath, preoperative cardiovascular risk stratification Technique: The patient was brought in for an exercise perfusion study on 09/17/2023. Patient performed exercise as per Jaun protocol and was injected 25 mCi of sestamibi was given intravenously one target HR was achieved. Images were obtained using the SPECT gamma camera interlaced with the gating device. Images were obtained in supine position. Resting perfusion study was performed on 09/19/2023. Patient was administered 25 mCi of sestamibi intravenously at rest. Images were then obtained in supine position. Images obtained with and without CT attenuation. Total DLP 84 mGy-cm. Images were processed with the software and compared side to side in short axis, horizontal long axis and vertical long axis views. Findings: The stress perfusion study showed both attenuated as well as non attenuated corrected images show normal uptake of radiotracer in the LV myocardium in all segments. There is suggestion of left ventricle hypertrophy. The gated study shows normal LV systolic function with calculated LVEF of greater than 70%. LV cavity is normal in size. The gated study shows normal systolic wall thickening and contraction of all segments. There is no transient ischemic dilation. Resting study shows non attenuated images show normal uptake of radiotracer in all segments of LV myocardium. Gating at rest reveals normal systolic wall motion with ejection fraction at greater than 70%. The findings are consistent with normal myocardial perfusion. NM/NM cardiolite stress test Impression: 1. Normal myocardial perfusion 2. Gated LVEF is greater than 70% 3. Transient ischemic dilatation not present Stress EKG is negative for ischemia
--- NOTE | 2023-09-17 10:26 | CA_ITS ---
Acquisition Time: 2023-09-17 10:37:46 Total Exercise Time: 00:05:22 Test Indications: Dyspnea Medications: ESCITALOPRAM ESOMEPRAZOLE LEVOTHYROXINE Protocol: SRAVAN Max HR: 122 BPM 86% of Pred: 141 BPM Max BP: 148/058 mmHG Max Work Load: 7.0 METS Exercise stress test exercise 5 min 22 sec of Sravan protocol achieving 86% MPHR, with mild to moderate SOB, no chest discomfort, without arrhythmias, with normotensive response to exercise, without EKG changes. Breathing returned to baseline with rest. Nuclear images pending. Test reviewed with Dr. Gaines. Referred By: Marc Montana Overread By: Desiree Hernandez
== END ==
LOC: HO.CARD 10:22
PROVIDERS: Visit Provider Internal Medicine
DX: R07.2 Precordial pain (principal); R06.02 Shortness of breath
CPT/HCPCS: 78452; 93017; A9500

== ENCOUNTER → 2023-09-17 10:26 | Outpatient (BNV) | payer OTHER, SELFPAY | PROVIDERS: Visit Provider Nurse Practitioner | DX: R07.2 Precordial pain (principal); R06.02 Shortness of breath | CPT/HCPCS: 78452; 93016; 93018 ==

== ENCOUNTER 2023-09-18 09:52 | Outpatient (REF) | payer MEDICARE, SELFPAY | END 2023-09-18 09:53 | disposition home or self-care (01) | LOC: HO.HAP 09:52 | PROVIDERS: PCP Internal Medicine; Visit Provider Internal Medicine | DX: Z13.89 Encounter for screening for other disorder (principal) ==

== ENCOUNTER 2023-09-29 17:18 | Emergency (ER) | payer MEDICARE, SELFPAY ==
--- NOTE | ~2023-09-29 | CT_ITS ---
EXAMINATION: CT ABDOMEN AND PELVIS WITH CONTRAST CLINICAL INFORMATION: Abdominal pain. Concern for obstruction. COMPARISON: None available. TECHNIQUE: Multidetector volumetric images were obtained from the superior aspect of the liver through the pubic symphysis following administration 85 mL of Omnipaque 350 intravenous contrast. Sagittal and coronal reformatted images were obtained on the technologist's workstation. Oral contrast: No This CT examination was performed using dose optimization techniques as appropriate, variously including the following: *Automated exposure control *Adjustment of mA and/or kV according to patient size (this includes techniques or standardized protocols for targeted exams where dose is matched to indication/reason for exam; i.e. extremities or head) *Use of iterative reconstruction technique DLP: 331 mGy-cm FINDINGS: LUNG BASES: The visualized lung bases are unremarkable. LIVER, GALLBLADDER, AND BILIARY TREE: There are scattered subcentimeter hepatic hypodensities too small to characterize but likely small cysts. There is no intrahepatic biliary duct dilatation. The gallbladder is unremarkable with no evidence of radiopaque gallstones, gallbladder wall thickening, or obvious pericholecystic inflammatory changes. PANCREAS: Pancreas is unremarkable. The pancreatic duct is prominent. SPLEEN: There has been a prior splenectomy. ADRENAL GLANDS: Unremarkable. KIDNEYS AND URETERS: The kidneys are normal in size, shape, and attenuation. No hydronephrosis, hydroureter, or calculi seen. No perinephric stranding. BLADDER: Unremarkable. GASTROINTESTINAL TRACT: There is no evidence for small bowel obstruction. Orally ingested contrast reaches the descending/proximal sigmoid colon. There is retained rectal stool with rectal expansion up to 6.5 cm with mild rectal thickening and perirectal infiltration. The appendix is not confidently seen as a separate structure. ABDOMINAL WALL: No significant hernia is appreciated. LYMPH NODES: Normal. VASCULAR: There is atherosclerotic plaque of the abdominal aorta and proximal branches. PELVIC VISCERA: Unremarkable. OSSEOUS STRUCTURES: The bony structures are diffusely osteopenic. There is diffuse thoracolumbar disc degenerative change with mild curvature of the lumbar spine convex to the right. There appears to be postoperative change at L4-L5 and L3-L4 with soft tissue within the spinal canal and apparent spinal canal narrowing. CT/CT abdomen pelvis w IV con IMPRESSION: 1. There is retained rectal stool with rectal expansion up to 6.5 cm with mild rectal thickening and perirectal infiltration. Suspect a stercoral colitis. 2. No evidence of small bowel obstruction. 3. There appears to be postoperative change at L4-L5 and L3-L4 with soft tissue within the spinal canal and apparent spinal canal narrowing. Correlation for significance needed. Fleischner guidelines were followed.
[2023-09-29 17:31] VITALS: BP 122/55; BP 129/64; PULSE 85; PULSE 86; RESP 18; TEMP 37.1; O2SAT 100; O2SAT 99; BMI 21.6
[2023-09-29 17:39] VITALS: BP 129/64; PULSE 83; RESP 18; TEMP 37.1; O2SAT 100
--- NOTE | 2023-09-29 17:40 | PC.NURSE ---
Pt presents to ED via EMS from home. Pt reports lower back surgery at [facility] this past Friday 09/22 for arthritis issues. Pt reports constipation and no bowel movement X1 week, since 09/21. Pt reports trying stool softeners and metamucil with no relief. Pt reports pressure in her rectum and lower ABD area, reports her hemorrhoids are bothering her. Pt reports lower back pain from surgical area is 9/10, has been taking oxycodone and Tylenol all week but none today. Pt reports she has been able to eat, however, reports feeling dry and dehydrated. Pt denies vomiting, fevers, cough. Pt is alert and oriented, breathing even and unlabored, skin dry and warm. Pt noted to be uncomfortable. VSS.
--- OUTSIDE RECORDS SUMMARY | 2023-09-29 17:50 | XMS_ITS | Continuity of Care Document ---
Author Organization [facility] Address [address] [place] [id number]- Care Team Providers Care Refuse Collector Name Role Phone Not on Staff, PCP Primary Care Physician Unavail able Encounter [facility] ACCT R [id number] Date(s): 11/13/22 - 02/14/23 [facility] [address] [place] [id number]- Attending Physician: Pilar Horn MD Admitting Physician: Pilar Horn MD Allergies, Adverse Reactions, Alerts Substance Reaction Severity Status morphine hypotension Active Percocet nausea/vomiting nausea Active Medications Acetaminophen = 500 mg, By Mouth, 2 times a day, PRN Pain , Moderate, 0 Refills, Maintenance, 11/02/20 12:31:00 EDT, Partial fill upon patient request if the prescription is for a schedule II opioid drug. Start Date: 11/02/20 Status: Ordered Calcium 600 +D oral tablet 1 tablet, By Mouth, 2 times a day, # 180 tablet, 0 Refills, Maintenance, 11/02/20 13:03:00 EDT, Tablet, Partial fill upon patient request if the prescription is for a schedule II opioid drug. Start Date: 11/02/20 Status: Ordered Caltrate 600 Plus 1 tablet, By Mouth, 2 times a day, 0 Refills, Maintenance, 10/03/22 17:49:00 EDT, Partial fill uponpatient request if the prescription is for a schedule II opioid drug. Start Date: 10/03/22 Status: Ordered escitalopram 5 mg oral tablet 2 tablet = 10 mg, By Mouth, Daily in AM, # 30 tablet, 0 Refills, Maintenance, 11/02/20 12:24:00 EDT, Tablet, Partial fill upon patient request if the prescription is for a schedule II opioid drug. Start Date: 11/02/20 Status: Ordered Esomeprazole 40 mg, By Mouth, Daily in AM, Refills 0, Maintenance, 11/02/20 12:23:00 EDT, Partial fill upon patient request if the prescription is for a schedule II opioid drug. Start Date: 11/02/20 Status: Ordered Fish Oil 1000 mg oral capsule 1200 mg., By Mouth, Daily, 0 Refills, Maintenance, 11/02/20 12:26:00 EDT, Partial fill upon patientrequest if the prescription is for a schedule II opioid drug. Start Date: 11/02/20 Status: Ordered levothyroxine 0.088 mg oral tablet See Instructions, 1 tablet By Mouth daily except for 1/2 tablet on Mondays and Fridays, 0 Refills, Maintenance, 11/02/20 12:23:00 EDT, Tablet, Partial fill upon patient request if the prescription isfor a schedule II opioid drug. Start Date: 11/02/20 Status: Ordered Performix P4 Performix P4, See Instructions, # 180 Gm, Refills 1, Tot. Refills 1, Maintenance, Diclofenac 5% Baclofen 2% Cyclobenzaprine 2% [id number]% Bupivicaine 2% in Liposomal cream, 10/31/22 8:33:00 EDT, Compound Start Date: 10/31/22 Status: Ordered pravastatin 20 mg oral tablet 20 mg, 1, tablet, By Mouth, Daily at bedtime, # 30 tablet, Refills 0, Maintenance, 11/02/20 12:24:00 EDT, Partial fill upon patient request if the prescription is for a schedule II opioid drug. Start Date: 11/02/20 Status: Ordered PreserVision AREDS 2 oral capsule 1, By Mouth, 2 times a day, 0 Refills, Maintenance, 10/03/22 17:50:00 EDT, Partial fill upon patient request if the prescription is for a schedule II opioid drug. Start Date: 10/03/22 Status: Ordered Implantable Device List Procedure Provider Procedure Date Device Type Site Revision Reverse Total Shoulder Griselda HURD, Frank Sung 10/11/22 Unknown Shoulder Right Device Identifier Serial Number Lot or Batch Number Manufacturing Date Expiration Date Distinct Identification Code MRI Safety Implantable Status Assigning Authority Unknown [id number] Unknown Unknown 02/07/27 Unknown Unknown Active Unknown Unknown [id number] Unknown Unknown 02/07/27 Unknown Unknown Active Unknown Patient Care team information Care Team Personnel Name: Buddy CAR, Janice Yang Position: [facility] RN Member Role: Primary Care Nurse Name: Not on Staff, PCP Position: [facility] Physician (General Medicine) Member Role: PCP Name: Benita Carrasco RN Position: [facility] RN Member Role: Primary Care Nurse Care Team Related Persons Name: BENJI MARIN Address: [address] [address]
--- OUTSIDE RECORDS SUMMARY | 2023-09-29 17:50 | XMS_ITS | Continuity of Care Document ---
Author Organization [facility] ter Address [address] [place] [id number]- Care Team Providers Care Forest Supervisor Name Role Phone Beatriz RECIO, Michelle Primary Care Physician [phone] Encounter [facility] ACCT R [id number] Date(s): 11/09/20 - 11/10/[address] [address] Discharge Disposition: A-D/C Home Attending Physician: Frank Villalobos MD Admitting Physician: Frank Villalobos MD Referring Physician: Frank Villalobos MD Allergies, Adverse Reactions, Alerts Substance Reaction Severity Status morphine hypotension Active Percocet nausea Active Medications Acetaminophen = 500 mg, [...] opioid drug. Start Date: 11/02/20 Status: Ordered Dilaudid 2 mg oral tablet 2 mg, Tablet, By Mouth, Every 4 hours, PRN for Pain , Moderate, Routine, 11/09/20 20:32:00 EDT Start Date: 11/09/20 Stop Date: 11/16/20 Status: Ordered Dilaudid 2 mg oral tablet 1 tablet = 2 mg, By Mouth, Every 4 hours, PRN as needed for pain, # 42 tablet, 0 Refills, Acute 11/18/20 9:03:00 EDT, 11/10/20 9:03:00 EDT, Tablet, [facility], Partial fill upon patientrequest if the prescription is for a schedule II op... Start Date: 11/10/20 Stop Date: 11/18/20 Status: Ordered Dilaudid 2 mg oral tablet 1 tablet = 2 mg, By Mouth, Every 4 hours, PRN Pain , Moderate, 0 Refills, Maintenance, 11/10/20 12:45:00 EDT, Tablet, Partial fill upon patient request if the prescription is for a schedule II opioiddrug. Start Date: 11/10/20 Status: Ordered docusate sodium = 100 mg, By Mouth, Daily, 0 Refills, Maintenance, 11/02/20 12:27:00 EDT, Partial fill upon patientrequest if the prescription is for a schedule II opioid drug. Start Date: 11/02/20 Status: Ordered escitalopram 5 mg oral tablet 1 tablet = 5 mg, By Mouth, Daily, # 30 tablet, 0 Refills, Maintenance, 11/02/20 12:24:00 EDT, Tablet, Partial fill upon patient request if the prescription is for a schedule II opioid drug. Start Date: 11/02/20 Status: Ordered Esomeprazole 40 mg, By Mouth, Daily, Refills 0, Maintenance, 11/02/20 12:23:00 EDT, Partial fill upon patient request if the prescription is for a schedule II opioid drug. Start Date: 11/02/20 Status: Ordered Fish Oil 1000 mg oral capsule 1 capsule = 1,000 mg, By Mouth, Daily, 0 Refills, Maintenance, 11/02/20 12:26:00 EDT, Partial fill upon patient request if the prescription is for a schedule II opioid drug. Start Date: 11/02/20 Status: Ordered gabapentin 100 mg oral capsule 100 mg, 1, capsule, By Mouth, 2 times a day, Refills 0, Maintenance, 11/02/20 12:31:00 EDT, Partialfill upon patient request if the prescription is for a schedule II opioid drug. Start Date: 11/02/20 Status: Ordered levothyroxine 0.088 mg oral tablet 1 tablet = 88 mcg, By Mouth, Daily, # 30 tablet, 0 Refills, Maintenance, 11/02/20 12:23:00 EDT, Tablet, Partial fill upon patient request if the prescription is for a schedule II opioid drug. Start Date: 11/02/20 Status: Ordered Multivitamin 1 tablet by mouth daily, 0 Refills, Maintenance, 11/02/20 12:25:00 EDT, Partial fill upon patient request if the prescription is for a schedule II opioid drug. Start Date: 11/02/20 Status: Ordered naproxen 250 mg oral tablet 250 mg, 1, tablet, By Mouth, 2 times a day, Refills 0, Maintenance, 11/02/20 12:30:00 EDT, Partial fill upon patient request if the prescription is for a schedule II opioid drug. Start Date: 11/02/20 Status: Ordered pravastatin 20 mg oral tablet 20 mg, 1, tablet, By Mouth, Daily at bedtime, # 30 tablet, Refills 0, Maintenance, 11/02/20 12:24:00 EDT, Partial fill upon patient request if the prescription is for a schedule II opioid drug. Start Date: 11/02/20 Status: Ordered Vital Signs Most recent to oldest [Reference Range]: 1 2 3 Height 152 cm (11/10/20 12:55 PM) 152 cm (11/10/20 10:40 AM) 152 cm (11/10/20 9:07 AM) Weight 49.4 kg (11/09/20 6:21 AM) 49 kg (11/02/20 1:20 PM) Oxygen Saturation [94-100 %] 97 % (11/10/20 7:02 AM) 95 % (11/10/20 2:39 AM) 97 % (11/10/20 12:10 AM) Pulse Rate [55-90 bpm] 83 bpm (11/10/20 10:40 AM) 81 bpm (11/10/20 7:02 AM) 65 bpm (11/10/20 2:39 AM) Body Mass Index [18.5-24.99] 21.38 (11/09/20 6:21 AM) 21.21 (11/02/20 1:20 PM) Blood Pressure [90-138/55-84 mm Hg] 113/54mm Hg (11/10/20 10:40 AM) 101/64mm Hg (11/10/20 7:02 AM) 103/55mm Hg (11/10/20 2:39 AM) Respiratory Rate [16-30 br/min] 18 br/min (11/10/20 12:56 PM) 16 br/min (11/10/20 9:29 AM) 18 br/min (11/10/20 8:29 AM) Temperature [96.8-100.4 DegF] 98.2 DegF (11/10/20 7:02 AM) 98.9 DegF (11/10/20 2:39 AM) 99.1 DegF (11/10/20 12:10 AM) Liters per Minute 5 L/min (11/09/20 10:30 AM) 5 L/min (11/09/20 10:15 AM) 5 L/min (11/09/20 10:00 AM) Mode of Delivery (Oxygen) Room air (11/10/20 7:02 AM) Room air (11/10/20 2:39 AM) Room air (11/10/20 12:10 AM) Blood pressure sites Arm, left (11/10/20 10:40 AM) Arm, left (11/10/20 7:02 AM) Arm, left (11/09/20 3:09 PM) Temperature Route Oral (11/10/20 7:02 AM) Oral (11/10/20 2:39 AM) Oral (11/10/20 12:10 AM) Dry Weight 49.4 kg (11/09/20 6:21 AM) 49 kg (11/02/20 1:20 PM) Weight Obtained Via Standing scale (11/09/20 6:21 AM) Patient/family stated (11/02/20 1:20 PM) Dry Weight Obtained Via Standing scale (11/09/20 6:21 AM) Patient/family stated (11/02/20 1:20 PM)
--- OUTSIDE RECORDS SUMMARY | 2023-09-29 17:50 | XMS_ITS | Continuity of Care Document ---
Author Organization [facility] Address [address] [place] [phone] Care Team Providers Care Fios Line Installer Name Role Phone Not on Staff, PCP Primary Care Physician Unavail able Encounter [facility] Date(s): 05/31/20 - 06/30/[address] [id number] Attending Physician: Beto Powell Admitting Physician: Beto Powell Referring Physician: Beto Powell
--- OUTSIDE RECORDS SUMMARY | 2023-09-29 17:50 | XMS_ITS | Continuity of Care Document ---
Author Organization [facility] ter Address [address] [place] [id number]- Care Team Providers Care Clinique Counter Manager Name Role Phone Not on Staff, PCP Primary Care Physician Unavail able [place] [facility] [place] - 10/12/[address] [address]- Discharge Disposition: A-D/C Home Attending Physician: Frank [...] Status: Ordered gabapentin 100 mg oral capsule 200 mg, 2, capsule, By Mouth, 2 times a day, [...] Ordered Multivitamin 1 tablet by mouth daily, By Mouth, Daily, 0 Refills, Maintenance, 11/02/20 12:25:00 EDT, Partial fill upon patient request if the prescription is for a schedule II opioid drug. Start Date: 11/02/20 Status: Ordered oxyCODONE 5 mg oral tablet 10 mg, Tablet, By Mouth, Every 4 hours, PRN for Pain , Moderate, Routine, 10/11/22 11:45:00 EDT Start Date: 10/11/22 Stop Date: 10/13/22 Status: Discontinued pravastatin 20 mg oral tablet 20 mg, [...] opioid drug. Start Date: 10/03/22 Status: Ordered Tylenol 325 mg oral tablet 650 mg, Tablet, By Mouth, Every 6 hours, PRN for Pain , Mild, Routine, 10/12/22 8:24:00 EDT Start Date: 10/12/22 Stop Date: 10/13/22 Status: Discontinued Results Orders for Microbiology Reports Name Date Anaerobic Culture (ANAEROBIC CULTURE) Anaerobic Culture (ANAEROBIC CULTURE) Anaerobic Culture (ANAEROBIC CULTURE) Anaerobic Culture (ANAEROBIC CULTURE) Anaerobic Culture (ANAEROBIC CULTURE) Sterile Body Fluid Culture W/ Gram Smear (STERILE FLUID CULT.) 10/11/22 Sterile Body Fluid Culture W/ Gram Smear (STERILE FLUID CULT.) 10/11/22 Sterile Body Fluid Culture W/ Gram Smear (STERILE FLUID CULT.) 10/11/22 Sterile Body Fluid Culture W/ Gram Smear (STERILE FLUID CULT.) 10/11/22 Sterile Body Fluid Culture W/ Gram Smear (STERILE FLUID CULT.) 10/11/22 Microbiology Reports (Most Recent Ten) TEST:Anaerobic Culture STATUS:Unauthenticated BODY SITE: SOURCE:FLUID COLLECTED DATE/TIME:10/11/22 10:10 AM Anaerobic Culture SPECIMEN DESCRIPTION : FLUID RIGHT SHOULDER 5 ANAEROBIC THIO PLEASE HOLD 14 DAYS SPECIAL REQUESTS : NONE CULTURE : NO ANAEROBES ISOLATED SO FAR. REPORT STATUS : PRELIMINARY REPORT TEST:Anaerobic Culture STATUS:Unauthenticated BODY SITE: SOURCE:FLUID COLLECTED DATE/TIME:10/11/22 10:10 AM Anaerobic Culture SPECIMEN DESCRIPTION : FLUID RIGHT SHOULDER SPECIAL REQUESTS : NONE CULTURE : NO ANAEROBES ISOLATED SO FAR. REPORT STATUS : PRELIMINARY REPORT TEST:Anaerobic Culture STATUS:Unauthenticated BODY SITE: SOURCE:FLUID COLLECTED DATE/TIME:10/11/22 10:10 AM Anaerobic Culture SPECIMEN DESCRIPTION : FLUID RIGHT SHOULDER SPECIAL REQUESTS : NONE CULTURE : NO ANAEROBES ISOLATED SO FAR. REPORT STATUS : PRELIMINARY REPORT TEST:Anaerobic Culture STATUS:Unauthenticated BODY SITE: SOURCE:FLUID COLLECTED DATE/TIME:10/11/22 10:10 AM Anaerobic Culture SPECIMEN DESCRIPTION : FLUID RIGHT SHOULDER SPECIAL REQUESTS : NONE CULTURE : NO ANAEROBES ISOLATED SO FAR. REPORT STATUS : PRELIMINARY REPORT TEST:Anaerobic Culture STATUS:Unauthenticated BODY SITE: SOURCE:FLUID COLLECTED DATE/TIME:10/11/22 10:10 AM Anaerobic Culture SPECIMEN DESCRIPTION : FLUID RIGHT SHOULDER SPECIAL REQUESTS : NONE CULTURE : NO ANAEROBES ISOLATED SO FAR. REPORT STATUS : PRELIMINARY REPORT TEST:Sterile Fluid Culture STATUS:Unauthenticated BODY SITE: SOURCE:FLUID COLLECTED DATE/TIME:10/11/22 10:10 AM Sterile Fluid Culture SPECIMEN DESCRIPTION : FLUID RIGHT SHOULDER 4 SPECIAL REQUESTS : HOLD SPECIMEN FOR 14 DAYS GRAM STAIN : NO CELLS OR ORGANISMS SEEN CULTURE : NO GROWTH TO DATE REPORT STATUS : PRELIMINARY REPORT TEST:Sterile Fluid Culture STATUS:Unauthenticated BODY SITE: SOURCE:FLUID COLLECTED DATE/TIME:10/11/22 10:10 AM Sterile Fluid Culture SPECIMEN DESCRIPTION : FLUID RIGHT SHOULDER 1 SPECIAL REQUESTS : HOLD SPECIMEN FOR 14 DAYS GRAM STAIN : NO CELLS OR ORGANISMS SEEN CULTURE : NO GROWTH TO DATE REPORT STATUS : PRELIMINARY REPORT TEST:Sterile Fluid Culture STATUS:Unauthenticated BODY SITE: SOURCE:FLUID COLLECTED DATE/TIME:10/11/22 10:10 AM Sterile Fluid Culture SPECIMEN DESCRIPTION : FLUID RIGHT SHOULDER 2 SPECIAL REQUESTS : HOLD SPECIMEN FOR 14 DAYS GRAM STAIN : NO CELLS OR ORGANISMS SEEN CULTURE : NO GROWTH TO DATE REPORT STATUS : PRELIMINARY REPORT TEST:Sterile Fluid Culture STATUS:Unauthenticated BODY SITE: SOURCE:FLUID COLLECTED DATE/TIME:10/11/22 10:10 AM Sterile Fluid Culture SPECIMEN DESCRIPTION : FLUID RIGHT SHOULDER 3 SPECIAL REQUESTS : HOLD SPECIMEN FOR 14 DAYS GRAM STAIN : NO CELLS OR ORGANISMS SEEN CULTURE : NO GROWTH TO DATE REPORT STATUS : PRELIMINARY REPORT TEST:Sterile Fluid Culture STATUS:Unauthenticated BODY SITE: SOURCE:FLUID COLLECTED DATE/TIME:10/11/22 10:10 AM Sterile Fluid Culture SPECIMEN DESCRIPTION : FLUID RIGHT SHOULDER 5 SPECIAL REQUESTS : HOLD SPECIMEN FOR 14 DAYS GRAM STAIN : NO CELLS OR ORGANISMS SEEN CULTURE : NO GROWTH TO DATE REPORT STATUS : PRELIMINARY REPORT Vital Signs Most recent to oldest [Reference Range]: 1 2 3 Height 149.8 cm (10/12/22 6:48 AM) 149.8 cm (10/12/22 4:42 AM) 149.8 cm (10/11/22 11:52 PM) Weight 48.5 kg (10/11/22 1:19 PM) 49.5 kg (10/11/22 8:07 AM) 49.5 kg (10/03/22 5:00 PM) Oxygen Saturation [94-100 %] 98 % (10/12/22 6:48 AM) 100 % (10/12/22 4:42 AM) 100 % (10/11/22 11:52 PM) Pulse Rate [55-90 bpm] 78 bpm (10/12/22 6:48 AM) 88 bpm (10/12/22 4:42 AM) 73 bpm (10/11/22 11:52 PM) Body Mass Index [18.5-24.99 kg/m2] 21.61 kg/m2 (10/11/22 1:19 PM) 22.06 kg/m2 (10/11/22 8:07 AM) 22.06 kg/m2 (10/03/22 5:00 PM) Blood Pressure [90-138/55-84 mm Hg] 107/49mm Hg (10/12/22 6:48 AM) 111/66mm Hg (10/12/22 4:42 AM) 130/69mm Hg (10/11/22 11:52 PM) Respiratory Rate [16-30 br/min] 18 br/min (10/12/22 2:57 PM) 18 br/min (10/12/22 10:04 AM) 18 br/min (10/12/22 10:04 AM) Temperature [96.8-100.4 DegF] 97.2 DegF (10/12/22 6:48 AM) 98.8 DegF (10/12/22 4:42 AM) 99.0 DegF (10/11/22 11:52 PM) Liters per Minute 6 L/min (10/11/22 11:00 AM) Mode of Delivery (Oxygen) Room air (10/12/22 6:48 AM) Room air (10/12/22 4:42 AM) Room air (10/11/22 11:52 PM) Blood pressure sites Arm, left (10/11/22 3:15 PM) Arm, left (10/11/22 1:19 PM) Arm, left (10/11/22 11:00 AM) Temperature Route Oral (10/12/22 6:48 AM) Oral (10/12/22 4:42 AM) Oral (10/11/22 11:52 PM) Dry Weight 48.5 kg (10/11/22 1:19 PM) 48.8 kg (10/11/22 8:07 AM) 49.5 kg (10/03/22 5:00 PM) Weight Obtained Via Patient/family state d (10/03/22 5:00 PM) Dry Weight Obtained Via Standing scale (10/11/22 8:07 AM) Infant scale (10/03/22 5:00 PM) Implantable Device List Procedure Provider Procedure Date Device Type Site Revision Reverse Total Shoulder Griselda HURD, Frank Sung 10/11/22 Unknown Shoulder Right Device Identifier Serial Number Lot or Batch Number Manufacturing Date Expiration Date Distinct Identification Code MRI Safety Implantable Status Assigning Authority Unknown [id number] Unknown Unknown 02/07/27 Unknown Unknown Active Unknown Unknown [id number] Unknown Unknown 02/07/27 Unknown Unknown Active Unknown History and physical note * Event Display: History and Physical Hospital Authored Date: * Event Display: History and Physical Hospital Authored Date: Note * Event Display: Adult Preadmission Health Questionnaire Authored Date: * Event Display: Cardiac Rhythm Strips Authored Date: * Maricarmen Estrada RN: PERFORM Event Display: Discharge/Transfer Note Hospital Authored Date: Nursing Discharge Note Entered On: 10/12/2022 16:04 EDT Performed On: 10/12/2022 16:04 EDT by Maricarmen Estrada RN Nursing Discharge Note 2 Discharge Time : 10/12/2022 15:48 EDT Discharge Level of Care at Discharge : Home/Correction/Foster Care Patient Left Unit Via : Wheelchair Patient Accompanied Off Unit with : Significant other, Responsible adult DC Instructions Provided & Signed by Pt : Yes Patient Understands D/C Instructions : Yes Patient Instructions Discharge Signed : Yes Did Pt have Specialty Bed or Wound Vac : No Maricarmen Estrada RN - 10/12/2022 16:04 EDT * Lan New: MODIFY, SIGN, PERFORM, SIGN, VERIFY Event Display: Discharge/Transfer Note Hospital Authored Date: [id number] Patient: SARAH MARIN Age: 77 years Sex: Female : 1945 Associated Diagnoses: None Author: Lan New Discharge Summary Admission Date: 10/11/2021 Discharge Date: 10/12/2021 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 Glenoid bone grafting Surgeon: Frank Villalobos M.D. Orthopedics: The patient is status post right total shoulder arthroplasty, conversion to CTA head 2. Glenoid bone grafting. It is anticipated that she will be discharged home today. The patient is doing well from a surgical standpoint. Her incision is healing well. Neurovascular status is intact. Continues to have moderate pain with Oxycodone. Tylenol 650 mg every 6 hours was ordered. Patient is tolerating this well. Prescriptions have been sent to patient's home pharmacy prior to surgery. Current Medication List: Acetaminophen 500 Milligram By Mouth 2 times a day as needed Pain , Moderate Calcium And Vitamin D Combination (Calcium 600 +D oral tablet) 1 tab(s) By Mouth 2 times a day Escitalopram (escitalopram 5 mg oral tablet) 2 tab(s) 10 Milligram By Mouth Daily in AM Esomeprazole 40 Milligram By Mouth Daily in AM Gabapentin (gabapentin 100 mg oral capsule) 200 Milligram 2 capsule By Mouth 2 times a day Levothyroxine (levothyroxine 0.088 mg oral tablet) See Instructions 1 tablet By Mouth daily except for 1/2 tablet on Mondays and Fridays Multivitamin 1 tablet by mouth daily By Mouth Daily Multivitamin With Minerals (Caltrate 600 Plus) 1 tab(s) By Mouth 2 times a day Multivitamin With Minerals (PreserVision AREDS 2 oral capsule) 1 By Mouth 2 times a day Stanley-3 Polyunsaturated Fatty Acids (Fish Oil 1000 mg oral capsule) 1200 mg. By Mouth Daily Pravastatin (pravastatin 20 mg oral tablet) 20 Milligram 1 tablet By Mouth Daily at bedtime Allergies: Allergies (Active and Proposed Allergies Only) Percocet (Severity: Unknown severity, Onset: Unknown) Reactions: nausea, nausea/vomiting morphine (Severity: Unknown severity, Onset: Unknown) Reactions: hypotension Disposition: Anticipates being discharged today to home pending OT clearance. Follow up at [facility]. Patient's medications have been sent to their home pharmacy prior to surgery. The patient has an Aquacel dressing in place. She may shower with it and it will be discontinued inthe office. Discharge Information Admission Date: 10/11/2022 Principal Discharge Diagnosis * Sean CAR, Maricarmen Christian: PERFORM Event Display: Patient Education/Instruction Authored Date: [id number] Inpatient Adult Discharge Instructions [address] [address] Name: SARAH MARIN : 1945 Visit: 10/11/2022 11:12:00 Current Date: 10/12/2022 14:58 Account: [id number] Inpatient Adult Discharge Instructions We would like to thank you for allowing us to assist you with your healthcare needs. The following includes patient education materials and information regarding your injury/illness. Our entire staffstrives to provide an excellent experience for our patients and their families. PLEASE ENSURE YOU FOLLOW-UP PER THE INSTRUCTIONS BELOW! ?? YOUR OPINION IS IMPORTANT TO US! Please complete the survey you may receive by mail or email. Your feedback will be used to make improvements to the healthcare experiences of our patients and their families. Surveys are administered by [employer] ?? If further treatment with your primary care physician or another doctor is recommended, it is important for you to keep the appointment. Call your primary care physician or return to the Emergency Department immediately if your condition worsens, fails to improve, or new symptoms develop. If you need to find a doctor, you can call [email or web address] for a referral at [phone] or toll free at [phone]) or log in to [email or web address].. ?? You can view and manage your care through the patient portal or by using a health care sarahy of your choosing. [employer] is a website that allows you to securely view your medical information including your hospital discharge summary, office visit summaries, medications and follow-up visits. You can also request appointments, renew medications, and request access to your medical information using a health care sarahy of your choosing, or just ask a question. You can enroll at [email or web address] or register during your next office visit. You have been discharged from [facility], Patient Care Unit: SW7. If you have any questions regarding these instructions after you leave, please call us and we will be happy to assist you. [facility] Your Care Team Attending Physician Griselda HURD, Frank Sung Discharging Providers Romel BARCENAS, Lan Reason for Your Visit FAILED HARDWARE (BASE PLATE) RIGHT REVERSE TOTAL Your Diagnosis Osteoarthritis of left shoulder Tests Performed Below is a partial list of the tests performed during your hospitalization. You may have had other tests and procedures not included in this list. Please discuss all test results with your provider. Primary Care Provider Not on Staff, PCP Advance Directive . Discharge Vitals Temperature: 97.2 DegF Height: 149.8 cm Pulse Rate: 78 bpm Weight: 48.5 kg Respiratory Rate: 18 br/min Body Mass Index: 21.61 kg/m2 Systolic Blood Pressure: 107 mm Hg Body surface area: 1.42 Diastolic Blood Pressure:??49 mm Hg??Low ?? Oxygen Saturation: 98 % ?? Studies Pending All tests and labs ordered during this hospital stay have been completed unless listed below. Please discuss all pending results with your provider listed above in these instructions. ?? Anaerobic Culture Fungal Culture, Nonrespiratory (FUNGAL CULT,NON-RESPIRATORY) Sterile Body Fluid Culture W/ Gram Smear (STERILE FLUID CULT.) What to do next Instructions From Your Doctor Discharge Orders You Need to Schedule the Following Appointments Follow Up with??[facility] When??Within 1 to 2 weeks Where: Discharge Medications SARAH MARIN :1945 Visit Date:10/11/2022 Medications: Please continue your medications until treatment is completed or stopped by your provider. Medications not listed below should be discontinued. Discuss any questions related to medications with your provider. What How Much When Instructions Next Dose Changed Gabapentin (gabapentin 100 mg oral capsule) 2 capsule Oral Twice a day 10/12 8-9pm Unchanged Acetaminophen 500 Milligram Oral Twice a day as needed for Pain , Moderate 10/12 6pm Unchanged Calcium And Vitamin D Combination (Calcium 600 +D oral tablet) 1 tab(s) Oral Twice a day 10/13 Unchanged Escitalopram (escitalopram 5 mg oral tablet) 2 tab(s) Oral Daily in the morning 10/13 Unchanged Esomeprazole 40 Milligram Oral Daily in the morning 10/13 Unchanged Levothyroxine (levothyroxine 0.088 mg oral tablet) See instructions 1 tablet By Mouth daily except for 1/ 2 tablet on Mondays and Fridays ?? 10/13 Unchanged Multivitamin 1 tablet by mouth daily Oral Daily 10/13 Unchanged Multivitamin With Minerals (Caltrate 600 Plus) 1 tab(s) Oral Twice a day 10/13 Unchanged Multivitamin With Minerals (PreserVision AREDS 2 oral capsule) 1 Oral Twice a day 10/12 8-9pm Unchanged Stanley-3 Polyunsaturated Fatty Acids (Fish Oil 1000 mg oral capsule) 1200 mg. Oral Daily 10/13 Unchanged Pravastatin (pravastatin 20 mg oral tablet) 1 tab(s) Oral Daily at Bedtime 10/12 8-9pm Test Results Below is a partial list of the most recent Laboratory test results done prior to this discharge. You may have had other tests and procedures not included in this list. Please discuss all test resultswith your provider. Allergies (NKA means No Known Allergies) Percocet??( nausea/vomiting , nausea) morphine??(hypotension) Problems No qualifying data available Education Materials Below is the list of Educational Leaflet Providered with your Discharge Instructions. Total Shoulder Replacement Surgery?? Valuables and Belongings I fully understand and agree that [facility] accepts no responsibility for all my personal property including clothing, toilet articles, radios, jewelry, dentures, hearing aids, rings, money, or any other property that is in my possession or is brought to me after admission. I understand certain valuables may be placed in a hospital safe for a short period of time. I understand that the hospital is not liable for loss or damage due to accident, fire, or other natural occurrence while said property is in the safe. I accept full responsibility for any personal property that I keep with me, and will not hold the hospital responsible in case of loss or disappearance. I acknowledge that i have been encouraged to send valuables and belongings home. ?? Review of Valuable and Belonging List: With patient Date for Pt to Sign Valuables/Belongings: 10/11/22 13:44:00 ?? Other Discharge Information ? Pulmonary Rehab Status?? Pulmonary Rehab Discharge Status?? Respiratory Rate: 18 br/min ? Common Emergency Awareness Tips IS IT A STROKE? Act FAST and Check for these signs: FACE Does the face look uneven? ARM Does one arm drift down? SPEECH Does their speech sound strange? TIME Call at any sign of stroke ?? Heart Attack Signs Chest discomfort: Most heart attacks involve discomfort in the center of the chest and lasts more than a few minutes, or goes away and comes back. It can feel like uncomfortable pressure, squeezing, fullness or pain. Discomfort in upper body: Symptoms can include pain or discomfort in one or both arms, back, neck, jaw or stomach. Shortness of breath: With or without discomfort. Other signs: Breaking out in a cold sweat, nausea, or lightheaded. Remember, MINUTES DO MATTER. If you experience any of these heart attack warning signs, call to get immediate medical attention! ?? Smoking can increase your chances of developing chronic health problems and can cause harmful effects to other family members in your house. If you smoke, you are strongly encouraged to quit. Please call [facility] [employer] [facility] at [phone] or [phone] ([phone]) or log in to [email or web address] for referrals to smoking cessation programs. ?? 097 Suicide & Crisis Lifeline is available 14/01 if you or someone you know needs to find a reason to keep living. By calling 358 you'll be connected to a skilled, trained counselor at a crisis center in your area. INPATIENT DISCHARGE INSTRUCTIONS SIGNATURE PAGE TANIASARAH Location:[facility] Registration Date and Time:10/11/2022 11:12 EDT Primary Care Physician: Not on Staff, PCP SARAH MARLEY, have received the above patient education materials/instructions and have verbalized understanding. If ambulance or transport services are being used I further acknowledge being given a choice of service. ?? If you need to contact me, please call me at this number: . Patient/Operations Developer Name: Patient/Operations Developer Signature: Relationship to Patient: Witness Name/Signature: Date: * Maricarmen Estrada RN.: PERFORM Event Display: Patient Education Leaflets Authored Date: [id number] Total Shoulder Replacement Surgery ?? [id number] Total Shoulder Replacement Surgery During shoulder replacement surgery, all or part of your shoulder is replaced with an artificial joint (prosthesis). The prosthesis replaces the rough, worn parts of your shoulder with smooth metal and plastic parts. You have many choices for different prostheses. Your surgeon will discuss the bestone for you. Common causes of problems that may need shoulder replacement include osteoarthritis, rheumatoid arthritis, and various injuries.?? In a total replacement operation, the ball and glenoid socket are replaced. Before your surgery You will most likely arrive at the hospital on the morning of the surgery. Tell your healthcare provider about any medicines you take. This includes [id number] medicines, vitamins, and supplements. Be sure to follow all of your healthcare provider's directions on getting ready for surgery: ??? Follow any directions you are given for taking medicines or for not eating or drinking before surgery.??? At the hospital, the staff will check your temperature, pulse, breathing, and blood pressure. ??? An IV (intravenous) line will be started. This will provide fluids and medicines you need during s urgery. ?? The surgical procedure You will be taken to the operating room when the surgical team is ready. There you will be given anesthesia to help you sleep through surgery. Your surgeon may replace just the ball (partial replacement). Or they will replace both the ball and the socket (total replacement). The surgeon makes a cut(incision) about 6 inches long from your collarbone to your arm. Once the new joint is in place, your surgeon closes the incision with surgical nhung or stitches (sutures). ?? After your surgery After surgery, you'll be sent to the recovery room. When you are fully awake, you'll be moved to your room. You can go home after surgery in some cases. The nurses will give you medicines to ease your pain. Your healthcare team will help you get up and moving. You may also have physical therapy after surgery. You may need to wear an arm sling for a few weeks. You will likely have a specific rehabilitation or physical therapy plan to get the best healing after surgery.? When to call your healthcare provider Once at home, call your healthcare provider if you have any of the symptoms below: ??? Pain gets worse even with your pain medicine ??? Unusual redness, heat, or drainage at the incision site ??? Fever of 100.4??F ( 38??C) or higher, or as directed by your healthcare provider ??? Chills ?? Last Reviewed Date: 2022 ?? [id number] [employer]. All rights reserved. This information is not intended as a substitute for professional medical care. Always follow your healthcare professional's instructions. ?? Hospital Progress note * Sean CAR, Maricarmen Christian: PERFORM, SIGN, VERIFY Event Display: Progress Note Hospital Authored Date: [id number] Patient: SARAH MARIN Age: 77 years Sex: Female : 1945 Associated Diagnoses: None Author: Sean CAR, Maricarmen Christian Findings Evaluation Patient discharged home, verbalized understanding of discharge instructions. All questions answered. Iv removed tip intact. Patient passed OT. . * Benita Carrasco RN: PERFORM, SIGN, VERIFY Event Display: Progress Note Hospital Authored Date: [id number] Patient: SARAH MARIN Age: 77 years Sex: Female : 1945 Associated Diagnoses: None Author: Benita Carrasco RN Findings Problem Related to Alteration in Musculoskeletal : Alteration in Musculoskeletal Func/new 10/12/2022 9:00 EDT Alteration in Musculoskeletal Related to Mobility, Orthopedic Procedure, Other: Revision Right shlder Arthroplasty 10/[address]alobos Goals & Outcomes, Musculoskeletal Affected extremity will maintain color/motion/sensation, Pt able to perform ADL's to best of ability, Pt demonstrates precautions/exercise/ transfers per protocol, Pt will ambulate safely with assistive device, Pt will be free from complications of immobility, Pt will demonstrate ability to participate in ADL's, Pt will report acceptable level of comfort/painrelief Interventions, Musculoskeletal Monitor patients ambulation status, monitor Color/Motion/Sensation, Assist with repositioning, Encourage deep breathing & coughing exercises, Notify MD immediately if tissue perfusion deteriorates, Obtain assistive devices as needed, Teach & Encourage use of Incentive spirometer, Teach Pt/caregiver on ADL's & adaptive equipment, Teach Pt/caregiver on exercises, Teach pt/caregiver on use of pain scale, Teach Pt/caregiver complications of immobility, Teach Pt/caregiver techniques to increase mobility, Teach Pt/caregiver on safety precautions BH Goals/Interventions, Musculoskeletal Yes Musculoskeletal, Problem Start 10/11/2022 13:54 Reviewed Plan with, Musculoskeletal Patient Patient Progression, Musculoskeletal Pt progressing according to plan . Nursing Data Vital Signs : VITAL SIGNS SECTION 10/12/2022 6:48 EDT Early Warning Score 2.00 10/12/2022 6:48 EDT Temperature 97.2 DegF Temperature Route Oral Pulse Rate 78 bpm Respiratory Rate 18 br/min Systolic Blood Pressure 107 mm Hg Diastolic Blood Pressure 49 mm Hg L Mean Arterial Pressure 68 mm Hg Pulse Pressure 58 mm Hg Oxygen Saturation 98 % Mode of Delivery (Oxygen) Room air 10/12/2022 6:12 EDT Respiratory Rate 18 br/min 10/12/2022 5:12 EDT Early Warning Score 0.00 10/12/2022 5:12 EDT Respiratory Rate 16 br/min 10/12/2022 4:42 EDT Early Warning Score 0.00 10/12/2022 4:42 EDT Temperature 98.8 DegF Temperature Route Oral Pulse Rate 88 bpm Respiratory Rate 18 br/min Systolic Blood Pressure 111 mm Hg Diastolic Blood Pressure 66 mm Hg Mean Arterial Pressure 81 mm Hg Pulse Pressure 45 mm Hg Oxygen Saturation 100 % Mode of Delivery (Oxygen) Room air . Narrative/Incidental 77 year old female with PMH GERD, HLD, and hypothyrodisim presented 10/11 for a left total shoulder revision with Dr Villalobos. Aquacel dressing C/D/I and sling in place. Reports minimal numbness to 5th finger on right hand. Color appropriate for ethnicity. Patient able to move fingers. +cap refill. Denies tingling. Can feel when being touched. Standby assist. Receiving oxycodone 5-10 mg q4h PRN aswell as PRN tylenol 650 mg q6h. Patient A&Ox3, [place], wears hearing aides at baseline. Lungs clear, diminished at bases. Denies chest pain and SOB. Not on telemetry. Abd soft, nontender. LBM 10/10. Received scheduled colace this AM. On regular diet, tolerating well. Denies N/V/D. Voiding clear yellow urine. SCDs for DVT prophylaxis. Fall precautions reviewed with patient, bed alarm on. Patient aware to call for assistance OOB. . Evaluation P: alteration in musculoskeletal function I: see care plan above for current interventions E: 77 year old presented 10/11 for a left total shoulder revision with Dr Villalobos. Aquacel dressingC/D/I and sling in place. Reports minimal numbness to 5th finger on right hand. Color appropriate for ethnicity. Patient able to move fingers. +cap refill. Denies tingling. Can feel when being touched. Standby assist. Receiving oxycodone 5-10 mg q4h PRN as well as PRN tylenol 650 mg q6h. Patient A&Ox3, [place], wears hearing aides at baseline. SCDs for DVT prophylaxis. Fall precautions reviewed with patient, bed alarm on. Patient aware to call for assistance OOB. . * Apple Dubon RN: PERFORM, SIGN, VERIFY Event Display: Progress Note Hospital Authored Date: Patient: SARAH MARIN Age: 77 years Sex: Female : 1945 Associated Diagnoses: None Author: Apple Dubon RN Findings Problem Related to Alteration in Musculoskeletal : Alteration in Musculoskeletal Func/new 10/11/2022 19:00 EDT Alteration in Musculoskeletal Related to Mobility, Orthopedic Procedure, Other:Revision Right shlder Arthroplasty 10/[address] Villalobos Goals & Outcomes, Musculoskeletal Affected extremity will maintain color/motion/sensation, Pt able to perform ADL's to best of ability, Pt demonstrates precautions/exercise/ transfers per protocol, Pt will ambulate safely with assistive device, Pt will be free from complications of immobility, Pt will demonstrate ability to participate in ADL's, Pt will report acceptable level of comfort/painrelief Interventions, Musculoskeletal Monitor patients ambulation status, monitor Color/Motion/Sensation, Assist with repositioning, Encourage deep breathing & coughing exercises, Teach & Encourage use of Incentive spirometer, Teach Pt/caregiver on exercises, Teach pt/caregiver on use of pain scale, Teach Pt/caregiver complications of immobility, Teach Pt/caregiver techniques to increase mobility, Teach Pt/caregiver on safety precautions, Incision care as ordered BH Goals/Interventions, Musculoskeletal Yes Musculoskeletal, Problem Start 10/11/2022 13:54 Reviewed Plan with, Musculoskeletal Patient Patient Progression, Musculoskeletal Pt progressing according to plan . Nursing Data Cardiac Data. : Cardiac Data. 10/11/2022 19:20 EDT Cardiovascular WNL . Gastrointestinal Data. : Gastrointestinal Data. 10/11/2022 19:20 EDT Last Bowel Movement 10/10/2022 GI WNL . Genitourinary Data. : Genitourinary Data. 10/11/2022 19:20 EDT Genitourinary Symptoms Frequency, Urgency Urinary catheter type Female External Urine Collection Device Urine Color Yellow Urine Description Clear WNL except . HEENT Data. : HEENT Assessment 10/11/2022 19:20 EDT HEENT, Adult WNL . Integumentary Data. : Integumentary Data. 10/11/2022 19:20 EDT Skin Integrity Not intact Activity Walks occasionally Mobility Slightly limited Integumentary WNL except . Musculoskeletal Data. : Musculoskeletal Data. 10/11/2022 19:20 EDT Special Orthopedic Devices Sling Musculoskeletal WNL except . Neurological Data. : Neurological Data. 10/11/2022 19:20 EDT Pain Location Shoulder, right Pain Intensity 3 1 - 10 Pain Scale Score 3 Quality Aching Pain Interventions PRN medication, Ice pack Pain relief acceptable Yes Neuro WNL . Patient Care Data. : Patient Care Data. 10/11/2022 19:21 EDT Turn and Reposition With partial assist Sequential Compression Device Sequentials on bilaterally TEDS Not indicated/Not ordered ID band on Yes Allergy band in place/verified N/A Blood Pressure/Venipuncture Do not use right arm Call Healy in Reach-Ensure Ability to Use Yes Patient Instructed on Use of Call Healy Yes Standard Safety Bed alert on, Bed in low position, Night light, Non-slip footwear, Upper/Half-length side-rails up, Wheels locked Pt Ed-Learning: Person Taught Patient Pt Ed-Learning: Learning Readiness Yes, alert and oriented Pt Ed-Learning: Learning Barriers None Pt Ed-Learning: Learning Style Verbal . Respiratory/Pulmonary Data. : Respiratory/Pulmonary Data. 10/11/2022 19:20 EDT Respiratory WNL . Vital Signs : VITAL SIGNS SECTION 10/11/2022 18:55 EDT Temperature 98.8 DegF Temperature Route Oral Pulse Rate 98 bpm H Respiratory Rate 18 br/min Systolic Blood Pressure 133 mm Hg Diastolic Blood Pressure 63 mm Hg Mean Arterial Pressure 86 mm Hg Pulse Pressure 70 mm Hg Oxygen Saturation 97 % Mode of Delivery (Oxygen) Room air . Pain Data : PAIN SECTION 10/11/2022 19:20 EDT Pain Location Shoulder, right Pain Intensity 3 1 - 10 Pain Scale Score 3 Pain relief acceptable Yes . Evaluation POD 0 revision of right total shoulder arthroplasty done by Dr Villalobos,patient alert and oriented x4,hard of hearing,bed alarm on for safety,LS clear,no SOB,abdomen SNT,(+) BS,denies nausea,good oral intake,c/o sore throat,ice chips given with relief,right shoulder aquacel dressing clean,dry and intact,sling and swathe in place,fingers (+) CMS,(+) capillary refill,denies numbness/tingling,pain 3/10,PRN oxy IR given with (+) effect,icepack in place,voiding clear yellow urine frequently with urgency,patient claimed baseline,purewick applied,both legs (+) CMS,(+) PP,C boots in place,OOB/walks wi th assist,reposition,will continue to monitor for safety and discomfort.. Patient Care team information Care Team Personnel Name: Buddy CAR, Jancie Yang Position: [facility] RN Member Role: Primary Care Nurse Name: Not on Staff, PCP Position: [facility] Physician (General Medicine) Member Role: PCP Name: Benita Carrasco RN Position: [facility] RN Member Role: Primary Care Nurse Care Team Related Persons Name: BENJI MARIN Address: home [address] [place] [id number]
--- OUTSIDE RECORDS SUMMARY | 2023-09-29 17:50 | XMS_ITS | Continuity of Care Document ---
Author Organization [facility] Address [address] [place] [id number]- Care Team Providers Care Temporary Administrative Assistant Name Role Phone Michelle Henderson NP Primary Care Physician Encounter [facility] [place] [facility] [id number] Date(s): 07/05/23 - 08/04/23 [facility] [address] [place] [id number]- Attending Physician: Beto Powell Admitting Physician: Admtr, Ar8 Referring Physician: Admtr, Ar8 Allergies, Adverse Reactions, Alerts Substance Reaction Severity [...] opioid drug. Start Date: 10/03/22 Status: Ordered Escitalopram = 10 mg, By Mouth, Daily in AM, 0 Refills, Maintenance, 05/10/23 9:22:00 EST, Partial fill upon patient request if the prescription is for a schedule II opioid drug. Start Date: 05/10/23 Status: Ordered Esomeprazole 40 mg, By Mouth, [...] Device Type Site Revision Reverse Total Shoulder Frank Villalobos MD 10/11/22 Unknown Shoulder Right Device Identifier Serial Number Lot or Batch Number Manufacturing Date Expiration Date Distinct Identification Code MRI Safety Implantable Status Assigning Authority Unknown [id number] Unknown Unknown 02/07/27 Unknown Unknown Active Unknown Unknown [id number] Unknown Unknown 02/07/27 Unknown Unknown Active Unknown Patient Care team information Care Team Personnel Name: Michelle Henderson NP Position: [facility] Outreach Member Role: PCP Address: Address: [address] [place] [address] [place] [address] Name: Janice Goodwin RN Position: [facility] RN Member Role: Primary Care Nurse Care Team Related Persons Name: BENJI MARIN Address: home [address] [place] [address]
--- OUTSIDE RECORDS SUMMARY | 2023-09-29 17:50 | XMS_ITS | Continuity of Care Document ---
Author Organization [facility] Address [address] [place] [id number]- Care Team Providers Care Picker Feeder Name Role Phone Not on Staff, PCP Primary Care Physician Unavail able Encounter [facility] [place] Date(s): 01/15/23 - 02/14/23 [facility] [address] [place] [id number]- Attending Physician: Beto Powell Admitting Physician: Beto Powell Referring Physician: Beto Powell Allergies, Adverse Reactions, Alerts Substance Reaction Severity [...] Maintenance, Diclofenac 5% Baclofen 2% Cyclobenzaprine 2% [id number]% Bupivicaine 2% in Liposomal cream, 10/31/22 8:33:00 [...] Site Revision Reverse Total Shoulder Griselda HURD, Frakn Sung 10/11/22 Unknown Shoulder Right Device Identifier Serial Number Lot or Batch Number Manufacturing Date Expiration Date Distinct Identification Code MRI Safety Implantable Status Assigning Authority Unknown [id number] Unknown Unknown 02/07/27 Unknown Unknown Active Unknown Unknown [id number] Unknown Unknown 02/07/27 Unknown Unknown Active Unknown Patient Care team information Care Team Personnel Name: Buddy CAR, Janice Yang Position: [facility] RN Member Role: Primary Care Nurse Name: Not on Staff, PCP Position: [facility] Physician (General Medicine) Member Role: PCP Name: Benita Carrasco RN Position: [facility] RN Member Role: Primary Care Nurse Care Team Related Persons Name: BENJI MARIN Address: [address] [id number]
--- OUTSIDE RECORDS SUMMARY | 2023-09-29 17:50 | XMS_ITS | Continuity of Care Document ---
Author Organization [facility] Address [address] [place] [phone]- Care Team Providers Care Devil Tender Name Role Phone Not on Staff, PCP Primary Care Physician Unavail able Encounter [facility] [place] Date(s): 10/26/22 - 11/25/22 [facility] [address] [place] [phone]- Allergies, Adverse Reactions, Alerts Substance Reaction Severity [...] Maintenance, Diclofenac 5% Baclofen 2% Cyclobenzaprine 2% [id number]% Bupivicaine 2% in Liposomal cream, 10/31/22 8:33:00 [...] MRI Safety Implantable Status Assigning Authority Unknown [id number] Unknown Unknown 02/07/27 Unknown Unknown Active Unknown Unknown [id number] Unknown Unknown 02/07/27 Unknown Unknown Active Unknown Patient Care team information Care Team Personnel Name: Janice Goodwin RN Position: S RN Member Role: Primary Care Nurse Name: Not on Staff, PCP Position: [facility] Physician (General Medicine) Member Role: PCP Name: Benita Carrasco RN Position: [facility] RN Member Role: Primary Care Nurse Care Team Related Persons Name: BENJI MARIN Address: [address] [address]
--- OUTSIDE RECORDS SUMMARY | 2023-09-29 17:50 | XMS_ITS | Continuity of Care Document ---
Author Organization [facility] ter Address [address] [place] [address]- Care Team Providers Care Psychological Aide Name Role Phone Ida Carpenter MD Primary Care Physician [place] [facility] [place]/23/23 - 09/24/[address] [address] Discharge Disposition: A-D/C Home Attending Physician: Pineda Armendariz MD Admitting Physician: Pineda Armendariz MD Referring Physician: Pineda Armendariz MD Allergies, Adverse Reactions, Alerts Substance Reaction [...] drug. Start Date: 11/02/20 Status: Ordered Dilaudid Inj 1 mg, Injection, IV Push Slowly, Every 4 hours, PRN for Pain , Severe, Routine, 09/23/23 10:27:00 EDT Start Date: 09/23/23 Stop Date: 09/24/23 Status: Discontinued Escitalopram = 10 mg, By Mouth, Daily [...] opioid drug. Start Date: 11/02/20 Status: Ordered ondansetron 4 mg oral tablet 1 tablet = 4 mg, By Mouth, Every 8 hours, # 21 tablet, 0 Refills, Acute 09/30/23 7:15:00 EDT, 09/23/23 7:14:00 EDT, Tablet, [facility], Partial fill upon patient request if the prescription is for a schedule II opioid drug., 150, cm, ... Start Date: 09/23/23 Stop Date: 09/30/23 Status: Ordered oxyCODONE 5 mg oral tablet See Instructions, PRN, 0.5 to 1 tablet By Mouth Every 4-6 hours, # 42 tablet, Refills 0, Tot. Refills 0, Acute 09/30/23 7:14:00 EDT, as needed for pain, 09/23/23 7:14:00 EDT, Instructions Replace Required Details, Route to Pharmacy Electronically, Sandy... Start Date: 09/23/23 Stop Date: 09/30/23 Status: Ordered pravastatin 20 mg oral tablet [...] opioid drug. Start Date: 10/03/22 Status: Ordered Procedures Procedure Date Related Diagnosis Body Site Status Laminectomy, facetectomy and foraminotomy (unilateral or bilateral with decompression of spinal cord, cauda equina and/or nerve root[s], [eg, spinal or lateral recess stenosis]), single vertebral segment; lumbar Comple kelvin Results Radiology Reports * Exam Date Time Procedure Performing Provider Status 09/23/23 8:25 AM Spine Single View Genaro Monge; Au th (Verified) Notes: (Spine Single View) Reason For Exam: Laminectomy L4-5 RESULT: Spine Single View Clinical history: Intraoperative x-ray. EXAMINATION: Single crosstable portable lateral view of the lumbosacral spine obtained intraoperatively.. FINDINGS: A single crosstable portable lateral view of the lumbosacral spine shows a radiopaque needle pointing posteriorly at the L4-L5 disc. Please refer to the operative report for more details. IMPRESSION: As above. WSN: [id number] Ordering Physician: Pineda Armendariz Dictated By: Josh Mills MD, V Dictated Date/Time: 09/23/23 11:51 a Reviewed By: Josh Mills MD, V Signed By: Josh Mills MD, V Signed Date/Time: 09/23/23 11:51 am Transcribed By: PALMIRA Transcribed Date/Time: 09/23/23 11:50 am Vital Signs Most recent to oldest [Reference Range]: 1 2 3 Height 150 cm (09/24/23 7:08 AM) 150 cm (09/23/23 7:17 PM) 150 cm (09/23/23 3:56 PM) Weight 46 kg (09/23/23 6:31 AM) 46 kg (09/18/23 11:37 AM) Oxygen Saturation [94-100 %] 99 % (09/24/23 7:08 AM) 99 % (09/24/23 4:36 AM) 100 % (09/23/23 11:50 PM) Pulse Rate [55-90 bpm] 95 bpm *H* (09/24/23 7:08 AM) 84 bpm (09/24/23 4:36 AM) 79 bpm (09/23/23 11:50 PM) Body Mass Index [18.5-24.99 kg/m2] 20.44 kg/m2 (09/23/23 6:31 AM) 20.44 kg/m2 (09/18/23 11:37 AM) Blood Pressure [90-138/55-84 mm Hg] 106/52mm Hg (09/24/23 7:08 AM) 141/71mm Hg *H* (09/24/23 4:36 AM) 116/58mm Hg (09/23/23 11:50 PM) Respiratory Rate [16-30 br/min] 18 br/min (09/24/23 7:30 AM) 1 br/min *L* (09/24/23 7:08 AM) 18 br/min (09/24/23 4:57 AM) Temperature [96.8-100.4 DegF] 98.3 DegF (09/24/23 7:08 AM) 98.6 DegF (09/24/23 4:36 AM) 98.3 DegF (09/23/23 11:50 PM) Liters per Minute 6 L/min (09/23/23 10:15 AM) Mode of Delivery (Oxygen) Room air (09/24/23 7:08 AM) Room air (09/24/23 4:36 AM) Room air (09/23/23 11:50 PM) Blood pressure sites Arm, right (09/24/23 7:08 AM) Arm, right (09/24/23 4:36 AM) Arm, right (09/23/23 11:50 PM) Temperature Route Oral (09/24/23 7:08 AM) Oral (09/24/23 4:36 AM) Oral (09/23/23 11:50 PM) Dry Weight 46.9 kg (09/23/23 6:31 AM) 46 kg (09/18/23 11:37 AM) Weight Obtained Via Patient/family state d (09/18/23 11:37 AM) Dry Weight Obtained Via Standing scale (09/23/23 6:31 AM) Patient/family stated (09/18/23 11:37 AM) Implantable Device List Procedure Provider Procedure Date Device Type Site Revision Reverse Total Shoulder Frank Villalobos MD 10/11/22 Unknown Shoulder Right Device Identifier Serial Number Lot or Batch Number Manufacturing Date Expiration Date Distinct Identification Code MRI Safety Implantable Status Assigning Authority Unknown [id number] Unknown Unknown 02/07/27 Unknown Unknown Active Unknown Unknown [id number] Unknown Unknown 02/07/27 Unknown Unknown Active Unknown Hospital Progress note * Pineda Armendariz MD: PERFORM, SIGN, VERIFY Event Display: Progress Note Hospital Authored Date: Patient: SARAH MARIN Age: 78 years Sex: Female : 1945 Associated Diagnoses: None Author: Pineda Armendariz MD Health Status Allergies Allergic Reactions (Selected) Severity Not Documented Morphine- Hypotension. Nonallergic Reactions (Selected) Severity Not Documented Percocet- nausea/vomiting and nausea. Patient With a good appetite. Ambulating to bathroom. Ambulating in hallway. Voiding spontaneously. Incision pain is improved Results Review Vital Signs Vitals : VITALS 09/24/2023 7:08 EDT Diastolic Blood Pressure 52 mm Hg L Physical Examination Motor Exam intact distally. Incision Drainage: serosanguinous. Impression and Plan Ambulate Patient Plan for D/C home when ambulating and eating * Samantha Gonzalez RN: PERFORM, SIGN, VERIFY, SIGN, MODIFY Event Display: Progress Note Hospital Authored Date: Patient: SARAH MARIN Age: 78 years Sex: Female : 1945 Associated Diagnoses: None Author: Samantha Gonzalez RN Findings Narrative/Incidental Pt s/p L4-L5 decompression. A+Ox4, little anxious. VSS. Surgical dressing with mild serosanguineousdrainage, dressing reinforced by day nurse; shadowing outlined with surgical marker, dressing otherwise intact. MARINO draining sanguinous fluid. Pt with mild to moderate pain, mostly when up to commode or moves. Denies dizziness, nausea, vomiting, CP, SOB, or cough. LSCTA. IVF infusing. Pt encouraged to drink water. Educated on incentive spirometry. Comp boots on. Pain meds given per MD order and pt's requests/symptoms.. * Samantha Gonzalez RN: PERFORM Event Display: Progress Note Hospital Authored Date: [id number] Around 0050 pt got up to commode with PCT. PCT reported to this nurse that MARINO drain doesn't hold suction. On nurse's assessment was found that MARINO drain is completely out. The dressing appears intact with no increased drainage/staining over dressing; no swelling or fluid leakage around insertion site on assessment when MARINO drain was found to be out. Sterile 4x4 dressing applied over MARINO drain insertion site. NEOS covering provider, Steve Salas notified. Will cont to monitor.. Note * Tamra Hinds LPN: PERFORM Event Display: Discharge/Transfer Note Hospital Authored Date: Nursing Discharge Note Entered On: 09/24/2023 10:20 EDT Performed On: 09/24/2023 10:15 EDT by Tamra Hinds LPN Nursing Discharge Note 2 Discharge Time : 09/24/2023 10:15 EDT Discharge Level of Care at Discharge : Home/Retirement/Foster Care Patient Left Unit Via : Wheelchair Patient Accompanied Off Unit with : Responsible adult DC Instructions Provided & Signed by Pt : Yes Patient Understands D/C Instructions : Yes Patient Instructions Discharge Signed : Yes Did Pt have Specialty Bed or Wound Vac : No Tamra Hinds LPN - 09/24/2023 10:18 EDT * Pineda Armendariz MD: PERFORM, SIGN, VERIFY Event Display: Discharge/Transfer Note Hospital Authored Date: [id number] Patient: SARAH MARIN Age: 78 years Sex: Female : 1945 Associated Diagnoses: None Author: Pineda Armendariz MD, I certify that this patient is under my care and that I or an an allowed non- physician practitionerworking with me, had a [id number] encounter with the patient on this date: 09/24/2023. The encounter with the patient was in whole, or in part, for the following medical condition, whichis the primary reason for home health care: Lumbar spinal stenosis. Physical Therapy: Functional mobility training. Occupational Therapy: ADL Management. Homebound due to: Pain, decreased strength, and endurance#. Physician Signature: Pineda Armendariz MD . * Tamra Hinds LPN: PERFORM Event Display: Patient Education/Instruction Authored Date: Inpatient Adult Discharge Instructions. [address] [address] Name: SARAH MARIN : 1945?? Visit: 09/23/2023 06:09?? Current Date: 09/24/2023 09:36 ?? Account: [id number]?? Inpatient Adult Discharge Instructions We would like [...] and their families. Surveys are administered by [employer] ?? If further treatment with your primary care physician or another doctor is recommended, it is important for you to keep the appointment. Call your primary care physician or return to the Emergency Department immediately if your condition worsens, fails to improve, or new symptoms develop. If you need to find a doctor, you can call [facility] Link for a referral at [phone] or toll free at [phone] ([phone]) or log in to [email or web address].. ?? [facility], in keeping with [facility] guidance, no longer requires face masks for staff, patientsor visitors in most situations. Similiar to time spent indoors at other locations, there is the chance that you were exposed to repiratory viruses during your time with us (such as flu or COVID-19). If you develop symptoms concerning for a viral respiratory infection, please seek testing (and treatment if indicated) from your medical provider or home test kit. ?? You can view and manage your care through the patient portal or by using a health care sarahy of your choosing. [employer] is a website that allows you to securely view your medical information including your hospital discharge summary, office visit summaries, medications and follow-up visits. You can also request appointments, renew medications, and request access to your medical information using a health care sarahy of your choosing, or just ask a question. You can enroll at [email or web address] or register during your next office visit. You have been discharged from [facility], Patient Care Unit: D3B??. If you have any questions regarding these instructions, including results of studies pending, afteryou leave, please call us and we will be happy to assist you 14/01. [facility] Your Care Team Attending Physician Pineda Armendariz MD?? Consulting Providers Pineda Armendariz MD?? Discharging Providers Pineda Armendariz MD Your Diagnosis Lumbar spinal stenosis Tests Performed Below is a partial list of the tests performed during your hospitalization. You may have had other tests and procedures not included in this list. Please discuss all test results with your provider. XR Spine Single View No tests performed during this visit.?? Primary Care Provider Ida Carpenter MD? Advance Directive Health Care Proxy on File No Discharge Vitals Temperature: 98.3 DegF Height: 150 cm Pulse Rate:??95 bpm??High Weight: 46 kg Respiratory Rate:??1 br/min??Low Body Mass Index: 20.44 kg/m2 Systolic Blood Pressure: 106 mm Hg Body surface area: 1.38 Diastolic Blood Pressure:??52 mm Hg??Low ?? Oxygen Saturation: 99 % ?? Studies Pending All studies ordered during this hospital stay have been completed unless listed below. Please discuss all pending results with your provider listed above in these instructions. ?? No incomplete studies found?? What to do next Instructions From Your Doctor ?? Orders?? , ??when clearede by PT, ??09/24/23 8:28:00 EDT?? You Need to Schedule the Following Appointments Follow Up with??Pineda Armnedariz Where: [address] [facility] [address] [facility] [place] [address]- Business (1) Follow Up with??Ida Carpenter When:??In 0 days Where: [address] [place] [address]- Business (1) Discharge Medications SARAH MARIN:1945 Visit Date:09/23/2023 Medications: Please continue your medications until treatment is completed or stopped by your provider. Medications not listed below should be discontinued. Discuss any questions related to medications with your provider. What How Much When Instructions Next Dose New Ondansetron (ondansetron 4 mg oral tablet) 1 tab(s) Oral Every 8 hours Pickup at [facility] follow as prescribe New Oxycodone (oxyCODONE 5 mg oral tablet) See instructions 0.5 to 1 tablet By Mouth Every 4-6 hours, As needed for as needed for pain ?? Pickup at [facility] see instructions Unchanged Acetaminophen 500 Milligram Oral Twice a day as needed for Pain , Moderate as needed follow as prescribe Unchanged Calcium And Vitamin D Combination (Calcium 600 +D oral tablet) 1 tab(s) Oral Twice a day 09/24/23 evening Unchanged Escitalopram 10 Milligram Oral Daily in the morning 09/25/23 Unchanged Esomeprazole 40 Milligram Oral Daily in the morning 09/25/23 Unchanged Levothyroxine (levothyroxine 0.088 mg oral tablet) See instructions 1 tablet By Mouth daily except for 1/ 2 tablet on Mondays and Fridays ?? see instructions Unchanged Multivitamin With Minerals (PreserVision AREDS 2 oral capsule) 1 Oral Twice a day 09/24/23 Unchanged Garwood-3 Polyunsaturated Fatty Acids (Fish Oil 1000 mg oral capsule) 1200 mg. Oral Daily 09/25/23 Unchanged Pravastatin (pravastatin 20 mg oral tablet) 1 tab(s) Oral Daily at Bedtime 09/24/23 bedtime Pharmacy Information [facility] 3: [address] [place], [place] [id number] [phone] Prescription Given During Visit Ondansetron (ondansetron 4 mg oral tablet) - 1 tablet = 4 mg, By Mouth, Every 8 hours, # 21 tablet,0 Refills, [facility], [address] [place] [id number]?? Oxycodone (oxyCODONE 5 mg oral tablet) - , # 42 tablet, 0 Refills, 0.5 to 1 tablet By Mouth Every 4-6 hours, [facility], [address] [place] [id number]?? Laboratory Results Below is a partial list of [...] Educational Leaflet Providered with your Discharge Instructions. Valuables and Belongings I fully understand and agree that [facility] accepts no responsibility for all my personal [...] patient Date for Pt to Sign Valuables/Belongings: 09/23/23 06:32:00 ?? Valuables & Belongings ?? Clothes Electronic devices Jewelry Monetary Items Personal devices Miscellaneous Medications (Valuables) Valuables at Bedside Jacket, Pants, Shirt, Shoes, Undergarments Cell phone, Other: red bag ? Glasses, Hearing aid, left, Hearing aid, right ? Valuables Sent Home ? Valuables Sent to Security ? Other Discharge Information ? Pulmonary Rehab Status?? Pulmonary Rehab Discharge Status?? Respiratory Rate:??1 br/min??Low ? Common Emergency Awareness Tips IS IT [...] are strongly encouraged to quit. Please call [facility] [employer] Link at [phone] or [phone] ([phone]) or log in to [email or web address] for referrals to smoking cessation programs. ?? 985 Suicide & Crisis Lifeline is available 14/01 if you or someone you know needs to find a reason to keep living. By calling 842 you'll be connected to a skilled, trained counselor at a crisis center in your area. INPATIENT DISCHARGE INSTRUCTIONS SIGNATURE PAGE SARAH MARIN Location:[facility] Registration Date and Time:09/23/2023 06:09 EDT Primary Care Physician: Ida Carpenter MD, Attending Physician: Kala HURD, Pineda Colon, I SARAH MARIN, have received the above patient education materials/instructions and have verbalized understanding. If ambulance or transport services are being used I further acknowledge being given a choice of service. ?? If you need to contact me, please call me at this number: . Patient/Loop Drier Operator Name: Patient/Loop Drier Operator Signature: Relationship to Patient: Witness Name/Signature: Date: * Olytessaiw Tiffanie CAR: PERFORM, SIGN, VERIFY Event Display: Patient Education Handout Authored Date: Patient Care team information Care Team Personnel Name: Ida Carpenter MD Position: [facility] Physician - Primary Care Member Role: PCP Address: Address: [address] [place] [address]- Name: Janice Goodwin RN Position: S RN Member Role: Primary Care Nurse Name: Tamra Hinds LPN Position: S RN Member Role: Primary Care Nurse Care Team Related Persons Name: BENJI MARIN Address: [place] [address]
--- OUTSIDE RECORDS SUMMARY | 2023-09-29 17:50 | XMS_ITS | Continuity of Care Document ---
Author Organization [facility] ter Address [address] [place] [address]- Care Team Providers Care Manager Flight Operations Name Role Phone Michelle Henderson NP Primary Care Physician [phone] Encounter [facility] Date(s): 06/26/23 - 08/02/[address] [address]- Attending Physician: Pineda Armendariz MD Admitting Physician: Pineda Armendariz MD Allergies, Adverse Reactions, [...] MRI Safety Implantable Status Assigning Authority Unknown [id number] Unknown Unknown 02/07/27 Unknown Unknown Active Unknown Unknown [id number] Unknown Unknown 02/07/27 Unknown Unknown Active Unknown Patient Care team information Care Team Personnel Name: Michelle Henderson NP Position: [facility] Outreach Member Role: PCP Address: Address: [address] [place] [address] [place] [address]- Name: Janice Goodwin RN Position: [facility] RN Member Role: Primary Care Nurse Care Team Related Persons Name: TANIA BENJI Address: home [address] [place] [address]
--- OUTSIDE RECORDS SUMMARY | 2023-09-29 17:50 | XMS_ITS | Continuity of Care Document ---
Author Organization [facility] Address [address] [place] [address]- Care Team Providers Care Making Machine Catcher Name Role Phone Beatriz RECIO, Michelle Primary Care Physician [phone] [facility] [id number] Date(s): 06/26/23 - 08/04/23 [facility] [address] [place] [id number] Attending Physician: Codi HURD, Logan Hdz Referring Physician: Pineda Armendariz MD Allergies, Adverse [...] MRI Safety Implantable Status Assigning Authority Unknown [id number] Unknown Unknown 02/07/27 Unknown Unknown Active Unknown Unknown [id number] Unknown Unknown 02/07/27 Unknown Unknown Active Unknown Patient Care team information Care Team Personnel Name: Michelle Henderson NP Position: [facility] Outreach Member Role: PCP Address: Address: [address] [place] [address] [place] [address]- [place] Name: Janice Goodwin RN Position: [facility] RN Member Role: Primary Care Nurse Care Team Related Persons Name: BENJI MARIN Address: home [address] [place] [address]
--- OUTSIDE RECORDS SUMMARY | 2023-09-29 17:50 | XMS_ITS | Continuity of Care Document ---
Author Organization [facility] Address [address] [place] [address]- Care Team Providers Care Ski Lift Operator Name Role Phone Not on Staff, PCP Primary Care Physician Unavail able Encounter [facility] Date(s): 10/25/22 - 01/17/23 [facility] [address] [place] [address]- Attending Physician: Not on Staff, Attending MD Referring Physician: Not on Staff, Referring MD Allergies, Adverse Reactions, Alerts Substance Reaction [...] Maintenance, Diclofenac 5% Baclofen 2% Cyclobenzaprine 2% Ulmuydvlkq23% Bupivicaine 2% in Liposomal cream, 10/31/22 8:33:00 [...] MRI Safety Implantable Status Assigning Authority Unknown [id number] Unknown Unknown 02/07/27 Unknown Unknown Active Unknown Unknown [id number] Unknown Unknown 02/07/27 Unknown Unknown Active Unknown Patient Care team information Care Team Personnel Name: Buddy CAR, Janice Yang Position: [facility] RN Member Role: Primary Care Nurse Name: Not on Staff, PCP Position: [facility] Physician (General Medicine) Member Role: PCP Name: Benita Carrasco RN Position: [facility] RN Member Role: Primary Care Nurse Care Team Related Persons Name: BENJI MARIN Address: [address] [address]
--- OUTSIDE RECORDS SUMMARY | 2023-09-29 17:50 | XMS_ITS | Continuity of Care Document ---
Author Organization [facility] Address [address] [place] [address]- Care Team Providers Care Drag Out Worker Name Role Phone Not on Staff, PCP Primary Care Physician Unavail able Encounter [facility] Date(s): 05/30/20 - 06/30/[address] [address]- Attending Physician: Rylee RECIO, Dacia Alcazar Admitting Physician: Rylee RECIO, Dacia Alcazar
--- NOTE | 2023-09-29 18:30 | ED.GENADULT ---
HPI - General Adult General Chief complaint: General Medical Stated complaint: back surgery 1w prior, RU/LQ pain, no bowel moveme Time Seen by Provider: 09/29/23 18:08 Source: patient, RN notes reviewed and old records reviewed Mode of arrival: EMS Limitations: no limitations History of Present Illness HPI narrative: 78-year-old female presents for evaluation of lower abdominal pain. Patient reports that she had lumbar surgery this past Saturday at [facility]. She states ?they were scraping the arthritis out to relieve my sciatica. ? She is unsure exactly the name of the procedure she had done She reports some discomfort in the area of the back surgery, however her chief complaint today is abdominal pain She reports that she has not had a bowel movement in 1 week which was prior to her surgery. Patient states she felt like she needed to have a bowel movement earlier today but then developed severe abdominal pain Denies any fevers, chills, nausea She reports that she is urinating without any difficulty and denies any burning with urination She reports a history of a previous hysterectomy, laparotomy, splenectomy due to non-Hodgkin's lymphoma No other complaints or concerns at this time Related Data Home Medications ?Medication ?Instructions ?Recorded ?Confirmed escitalopram oxalate 5 mg tablet 5 mg PO DAILY 12/09/20 09/11/23 esomeprazole magnesium 40 mg 40 mg PO DAILY 12/09/20 09/11/23 capsule,delayed release pravastatin 20 mg tablet 20 mg PO DAILY 12/09/20 09/11/23 levothyroxine 88 mcg tablet 88 mcg PO 09/11/23 09/11/23 Previous Rx's ?Medication ?Instructions ?Recorded polyethylene glycol 3350 17 17 g PO DAILY 2 weeks #238 grams 09/30/23 gram/dose oral powder (Miralax) sodium phosphates 19 gram-7 118 ml FL DAILY PRN constipation 09/30/23 gram/197 mL enema (Fleet Enema #230 mL Extra) Allergies Allergy/AdvReac Type Severity Reaction Status Date / Time codeine [CODEINE] Allergy Severe HYPOTENSION Verified 09/29/23 17:38 morphine [MORPHINE] Allergy Severe hives,HYPOT Verified 09/11/23 12:33 ENSION acetaminophen [Percocet] Allergy Unknown Vomiting Verified 09/11/23 12:33 oxycodone [From Percocet] AdvReac Mild VOMITING Verified 09/11/23 12:33 morphine Allergy Unknown hives Uncoded 09/11/23 12:33 percocet Allergy Unknown vomiting Uncoded 09/11/23 12:33 Review of Systems Constitutional: Constitutional: Denies body ache(s), Denies chills and Denies fever(s) Eyes: Eyes: Denies blurry vision ENT: Denies sore throat Cardiovascular: Cardiovascular: Denies chest pain and Denies dyspnea Respiratory: Respiratory: Denies cough and Denies dyspnea Gastrointestinal: Gastrointestinal: Reports abdominal pain, Reports constipation, Denies diarrhea, Denies loose stools, Denies nausea and Denies vomiting Musculoskeletal: Musculoskeletal: Reports back pain Integumentary/Breasts: Skin/Breast: Denies rash PMFSH Past Medical History Medical History (Updated 09/30/23 @ 03:06 by Ronaldo Clinton) Depression Hypothyroidism Lung cancer Hodgkin disease Surgical History (Updated 09/11/23 @ 12:34 by Madeline Choi) S/P right rotator cuff repair Family History Family History (Updated 09/11/23 @ 12:35 by Madeline Choi) Mother No problems noted. Father No problems noted. Social History Social History (Updated 09/11/23 @ 12:35 by Madeline Choi) Alcohol intake: current Alcohol intake frequency: holidays/special occasions only Alcohol type: wine Patient Tobacco Use Status: Never used Tobacco Smoked in Last 30 Days: No Use of substances other than those prescribed or required for medical reasons: No Advance Directives: No Advance Directives Information Provided: No Physical Exam ED Vital Signs: Vital Signs - 24 hr 09/29/23 17:31 09/29/23 17:39 09/29/23 19:58 Temperature 98.7 F 98.7 F 100.2 F Pulse Rate 85 83 91 Respiratory Rate 18 18 18 Blood Pressure 129/64 129/64 158/74 H Pulse Oximetry 100 100 98 Oxygen Delivery Method Room Air Room Air Room Air 09/29/23 21:42 09/29/23 23:14 09/30/23 00:36 Temperature 100.1 F Pulse Rate 99 93 99 Respiratory Rate 16 16 16 Blood Pressure 156/73 H 126/69 146/58 H Pulse Oximetry 97 98 97 Oxygen Delivery Method Room Air Room Air Room Air 09/30/23 02:16 Temperature 98.9 F Pulse Rate 92 Respiratory Rate 20 Blood Pressure 127/61 Pulse Oximetry 96 Oxygen Delivery Method Room Air BMI result Body Mass Index 21.6 Const General: healthy appearing, alert, awake and acute distress (Patient appears uncomfortable but nontoxic appearing) Nutritional Appearance: well nourished Orientation/consciousness: patient oriented x3 HENMT Head: Yes normocephalic and Yes atraumatic Eyes Eyelids: Yes eyelids normal Conjunctivae: conjunctivae normal Sclerae: sclerae normal Corneas: corneas normal Pupils: Equal, round and reactive pupils present EOM: EOMs intact bilaterally Neck Neck: Yes full ROM Resp Effort & Inspection: normal respiratory effort, able to speak in complete sentences and not labored Cardio Rate: regular rate Rhythm: regular rhythm GI Inspection: No distended Palpation (GI): Soft to palpation, not firm, Tenderness to palpation present (GI) in the LLQ, in the RLQ and suprapubicly, Guarding due to palpation present (GI) in the LLQ and not rigid Back/Spine/Pelvis Other: Patient has surgical scar appears clean, healing appropriately. No purulence, no surrounding erythema. Skin General skin exam: elasticity normal Neuro General: patient oriented x3 Cranial nerves: Yes Equal, round and reactive pupils present and Yes Bilaterally intact EOM present Cognition (Neuro): normal cognition Extrem Other: Moving all extremities well without any obvious deformities Course Reevaluation(s) Reevaluation #1: Patient re-evaluated, she has had 2 bowel movements in the ER, she still awaiting her CT scan but reports her pain is significantly improved Time: 22:27 Reevaluation #2: Patient has had multiple bowel movements that is mostly diarrhea. We will send for C diff and GI panel testing. Still awaiting CT scan Time: 23:59 Reevaluation #3: Patient CT scan showed stool ball in the rectum. The patient was able to have additional hard, formed bowel movement after the CT scan. I discussed possible digital rectal examination with the patient and she declined at this time. She would like to be discharged home with a Fleet enema and will continue MiraLax. Plan to follow-up with her surgeon. Patient currently has no abdominal pain. Time: 03:03 Medications Administered Discontinued Medications Generic Name Dose Route Start Last Admin Trade Name Freq PRN Reason Stop Dose Admin Barium Sulfate 900 ml 09/30/23 00:37 09/30/23 00:38 Barium Sulfate Oral ([place]) 450 Ml Oral.Susp PO 09/30/23 00:38 900 ml ONCE ONE Administration Hydromorphone HCl 0.5 mg 09/29/23 18:24 09/29/23 18:36 Hydromorphone Hcl 0.5 Mg/0.5 Ml Syringe IVPUSH 09/29/23 18:25 0.5 mg ONCE ONE Administration Protocol Hydromorphone HCl 0.5 mg 09/30/23 01:16 09/30/23 01:27 Hydromorphone Hcl 0.5 Mg/0.5 Ml Syringe IVPUSH 09/30/23 01:17 0.5 mg ONCE ONE Administration Protocol Iohexol 85 ml 09/30/23 00:27 09/30/23 00:37 Iohexol 350 Mg/Ml 100 Ml Infus..Btl IV 09/30/23 00:28 85 ml ONCE ONE Administration Ondansetron HCl 4 mg 09/29/23 18:24 09/29/23 18:35 Ondansetron Hcl 4 Mg/2 Ml Vial IVPUSH 09/29/23 18:25 4 mg ONCE ONE Administration Medical Decision Making Medical Decision Making [facility] Narrative: 78-year-old female presents for evaluation of abdominal pain. She has not had a bowel movement in 7 days. Concern for ileus versus obstruction versus severe constipation. Clinically, it does not appear that her surgical wound appears infected, it appears to be healing well. Plan for labs, UA, CT scan of the abdomen pelvis. Patient medicated with Dilaudid 0.5 mg IV and Zofran. Differential Diagnosis Differential Diagnoses: The differential diagnosis associated with the presentation includes Constipation Bowel obstruction Ileus Acute appendicitis Lab Data [facility] Lab Attestation statement: I reviewed the patient's lab results. No leukocytosis, the patient has a very mild anemia which is likely related to her recent surgery. She has no electrolyte abnormalities, normal renal function 09/29/23 18:40 09/29/23 20:14 Labs: Lab Results 09/29/23 09/29/23 09/30/23 Range/Units 18:40 20:14 00:29 WBC 7.8 (4.8-10.8) X10*3/uL RBC 3.72 L (4.20-5.50) X10*6/uL Hgb 11.5 L (12.0-16.0) g/dl Hct 33.4 L (37.0-47.0) % MCV 89.8 (80.0-98.0) fL MCH 30.9 (27.0-33.0) pg MCHC 34.4 (31.0-35.0) g/dl RDW 13.4 (11.0-16.0) % Plt Count 336 (160-400) X10*3/uL MPV 10.5 (9.4-12.3) fL Immature Gran % (Auto) 0.4 (0.0-0.4) % Neut % (Auto) 84.3 H (45-73) % Lymph % (Auto) 8.4 L (20-40) % [place] % (Auto) 5.6 (2-11) % Eos % (Auto) 0.8 (0-4) % Baso % (Auto) 0.5 (0-2) % Lymph # (Auto) 0.7 L (1.2-4.9) X10*3/uL [place] # (Auto) 0.4 (0.1-1.2) X10*3/uL Eos # (Auto) 0.1 (0.0-0.4) X10*3/uL Baso # (Auto) 0.0 (0.0-0.2) X10*3/uL Abs Immat Gran (auto) 0.03 (0.00-0.03) X10*3/uL Absolute Neuts (auto) 6.6 (2.0-8.3) x10*3/uL Absolute Nucleated RBC 0.000 (0.0-0.012) X10*3/uL Nucleated RBC % (auto) 0.0 (0.0-0.2) /100WBC Sodium 139 (135-145) mmol/L Potassium 4.4 (3.3-5.1) mmol/L Chloride 103 (96-108) mmol/L Carbon Dioxide 28 (22-29) mmol/L Anion Gap 12 (12-20) BUN 14 (9-16) mg/dL Creatinine 0.68 (0.5-1.4) mg/dL Estim Creat Clear Calc 45.7 Estimated GFR > 60 Random Glucose 93 (60-115) mg/dL Lactic Acid 0.8 (0.5-2.0) mmol/L Calcium 8.6 (8.4-10.2) mg/dL Total Bilirubin 0.4 (0.0-1.0) mg/dL AST 23 (5-31) U/L ALT 17 (0-31) U/L Alkaline Phosphatase 61 (39-117) U/L Total Protein 6.4 L (6.5-8.0) g/dL Albumin 3.4 L (3.5-5.0) g/dL Lipase 49 (8-78) U/L Urine Color Urine Appearance Urine pH (5.0-9.0) Ur Specific [place] (1.005-1.025) Urine Protein (Neg-Trace) mg/dL Urine Glucose (UA) (Negative) mg/dL Urine Ketones (Negative) mg/dL Urine Blood (Negative) Urine Nitrite (Negative) Ur Leukocyte Esterase (Negative) Urine RBC (0-2) /HPF Urine WBC (0-5) /HPF Ur Squamous Epith Cells (0-2) /HPF Urine Bacteria (None Seen) Hyaline Casts (0-2) /LPF C. difficile Tox B Gene NEGATIVE (Negative) 09/30/23 Range/Units 01:45 WBC (4.8-10.8) X10*3/uL RBC (4.20-5.50) X10*6/uL Hgb (12.0-16.0) g/dl Hct (37.0-47.0) % MCV (80.0-98.0) fL MCH (27.0-33.0) pg MCHC (31.0-35.0) g/dl RDW (11.0-16.0) % Plt Count (160-400) X10*3/uL MPV (9.4-12.3) fL Immature Gran % (Auto) (0.0-0.4) % Neut % (Auto) (45-73) % Lymph % (Auto) (20-40) % [place] % (Auto) (2-11) % Eos % (Auto) (0-4) % Baso % (Auto) (0-2) % Lymph # (Auto) (1.2-4.9) X10*3/uL [place] # (Auto) (0.1-1.2) X10*3/uL Eos # (Auto) (0.0-0.4) X10*3/uL Baso # (Auto) (0.0-0.2) X10*3/uL Abs Immat Gran (auto) (0.00-0.03) X10*3/uL Absolute Neuts (auto) (2.0-8.3) x10*3/uL Absolute Nucleated RBC (0.0-0.012) X10*3/uL Nucleated RBC % (auto) (0.0-0.2) /100WBC Sodium (135-145) mmol/L Potassium (3.3-5.1) mmol/L Chloride (96-108) mmol/L Carbon Dioxide (22-29) mmol/L Anion Gap (12-20) BUN (9-16) mg/dL Creatinine (0.5-1.4) mg/dL Estim Creat Clear Calc Estimated GFR Random Glucose (60-115) mg/dL Lactic Acid (0.5-2.0) mmol/L Calcium (8.4-10.2) mg/dL Total Bilirubin (0.0-1.0) mg/dL AST (5-31) U/L ALT (0-31) U/L Alkaline Phosphatase (39-117) U/L Total Protein (6.5-8.0) g/dL Albumin (3.5-5.0) g/dL Lipase (8-78) U/L Urine Color Yellow Urine Appearance Cloudy Urine pH 8.0 (5.0-9.0) Ur Specific [place] 1.025 (1.005-1.025) Urine Protein Negative (Neg-Trace) mg/dL Urine Glucose (UA) Negative (Negative) mg/dL Urine Ketones 40 (Negative) mg/dL Urine Blood Negative (Negative) Urine Nitrite Negative (Negative) Ur Leukocyte Esterase Trace H (Negative) Urine RBC 0-2 (0-2) /HPF Urine WBC 0-5 (0-5) /HPF Ur Squamous Epith Cells 0-2 (0-2) /HPF Urine Bacteria None Seen (None Seen) Hyaline Casts 0-2 (0-2) /LPF C. difficile Tox B Gene (Negative) Discharge Plan Discharge Clinical Impression: Abdominal pain, Constipation Patient Disposition: Home, Self-Care Instructions: Constipation (ED), High Fiber Diet (ED), Fleet Enema (ED) Additional Instructions: Your CT scan showed significant constipation. You are able to have multiple bowel movements in the emergency department Your CT scan did show a stool ball in your rectum You were able to have a bowel movement after this CT scan was done. I recommend that you stop using narcotics when you are able to tolerate the back pain I recommend they increase fluid and fiber intake in your diet I recommend that you take MiraLax every night for the next 2 weeks You were prescribed a Fleet enema that I recommend you use tomorrow morning. Tried to retain the enema as long as possible before attempting to have a bowel movement Return to the ER if you have any new or worsening symptoms Prescriptions: New Fleet Enema Extra 19-7 gram/197 mL enema 118 ml FL DAILY PRN (Reason: constipation) Qty: 230 0RF polyethylene glycol 3350 [Miralax] 17 gram/dose powder 17 g PO DAILY 14 Days Qty: 238 0RF No Action escitalopram oxalate 5 mg tablet 5 mg PO DAILY esomeprazole magnesium 40 mg capsule,delayed release(DR/EC) 40 mg PO DAILY pravastatin 20 mg tablet 20 mg PO DAILY levothyroxine 88 mcg tablet 88 mcg PO Print Language: [place] Zealander
[2023-09-29] MEDS: ondansetron HCL 4 MG/2 ML VIAL IVPUSH (18:35)
[2023-09-29] MEDS: HYDROmorphone HCl 0.5 MG/0.5 ML SYRINGE IVPUSH (18:36)
--- NOTE | 2023-09-29 18:37 | MHC.EDTECH ---
Requested records from [facility]. Waiting to hear back.
[2023-09-29 18:52] LABS: MANUAL DIFF FLAG NO
[2023-09-29 18:56] LABS: Basophils Percent Auto 0.5 % (0-2); Eosinophils Absolute Auto 0.1 X10*3/uL (0.0-0.4); Eosinophils Percent Auto 0.8 % (0-4); Hematocrit 33.4 % (37.0-47.0); Hemoglobin 11.5 g/dl (12.0-16.0); Imm Gran Abs Auto 0.03 X10*3/uL (0.00-0.03); Imm Gran Pct Auto 0.4 % (0.0-0.4); Lymphocytes Absolute Auto 0.7 X10*3/uL (1.2-4.9); Lymphocytes Percent Auto 8.4 % (20-40); Mean Corpuscular HGB Conc 34.4 g/dl (31.0-35.0); Mean Corpuscular Hemoglobin 30.9 pg (27.0-33.0); Mean Corpuscular Volume 89.8 fL (80.0-98.0); Mean Platelet Volume 10.5 fL (9.4-12.3); Monocytes Absolute Auto 0.4 X10*3/uL (0.1-1.2); Monocytes Percent Auto 5.6 % (2-11); Neutrophils Absolute Auto 6.6 x10*3/uL (2.0-8.3); Neutrophils Percent Auto 84.3 % (45-73); Platelet Count 336 X10*3/uL (160-400); Red Blood Count 3.72 X10*6/uL (4.20-5.50); Red Cell Distribution Width 13.4 % (11.0-16.0); White Blood Count 7.8 X10*3/uL (4.8-10.8)
[2023-09-29 19:03] LABS: Lactic Acid 0.8 mmol/L (0.5-2.0)
[2023-09-29 19:58] VITALS: BP 158/74; PULSE 91; RESP 18; TEMP 37.9; O2SAT 98
--- NOTE | 2023-09-29 20:00 | PC.NURSE ---
Assumed care of pt at 1900. PT a/ox4. skin pwd, vss- bp slightly elevated pt reports she bp is usually low. Pt had a bm which consistent of diarrhea. pericare provided, purewick in place. Pt report abdomdal pain reduced now that she had a bm. lower back incision area noted currently bandaged- no drainage, dressing dry and intact. PT awaiting ct scan
[2023-09-29 20:36] LABS: Alanine Aminotransferase 17 U/L (0-31); Albumin Level 3.4 g/dL (3.5-5.0); Alkaline Phosphatase 61 U/L (39-117); Anion Gap 12 (12-20); Aspartate Amino Transferase 23 U/L (5-31); Bilirubin Total 0.4 mg/dL (0.0-1.0); Blood Urea Nitrogen 14 mg/dL (9-16); Calcium 8.6 mg/dL (8.4-10.2); Carbon Dioxide 28 mmol/L (22-29); Chloride 103 mmol/L (96-108); Creatinine Clr Calc Pharmacy 45.7; Estimated Glomerular Filt Rate > 60; Glucose Random 93 mg/dL (60-115); Lipase 49 U/L (8-78); Potassium 4.4 mmol/L (3.3-5.1); Sodium 139 mmol/L (135-145); Total Protein 6.4 g/dL (6.5-8.0)
[2023-09-29 21:42] VITALS: BP 156/73; PULSE 99; RESP 16; O2SAT 97
[2023-09-29 23:14] VITALS: BP 126/69; PULSE 93; RESP 16; O2SAT 98
--- NOTE | 2023-09-30 00:30 | PC.NURSE ---
PT has had several of B< consisting of diarrahea. PT complaining of hemorroid pain and abdominal pain. CT scan attempted to get pt down to CT several of times but were unsuccessful due to the number of BM pt was having. In addition, PT line that was placed by EMS needed tubing to be changed. t/w changed tubing and notified CT that pt was ready for scan. PT getting scanned at the moment.
[2023-09-30 00:36] VITALS: BP 146/58; PULSE 99; RESP 16; TEMP 37.8; O2SAT 97
[2023-09-30] MEDS: iohexoL 350 MG/ML 100 ML INFUS..BTL 85 ML IV (00:37)
[2023-09-30] MEDS: Barium Sulfate Oral (Berry) 450 ML ORAL.SUSP 900 ML PO (00:38)
[2023-09-30 01:26] LABS: CDiff Gene PCR NEGATIVE (Negative)
[2023-09-30] MEDS: HYDROmorphone HCl 0.5 MG/0.5 ML SYRINGE IVPUSH (01:27)
[2023-09-30 01:50] LABS: Appearance Urine Cloudy; Color Urine Yellow; Glucose Urine UA Negative (Negative); Leukocyte Esterase Urine Trace (Negative); Nitrite Urine Negative (Negative); Specific Gravity - Urine 1.025 (1.005-1.025); UMIC TRIGGER UACC YES; Urine Blood Negative (Negative); Urine Ketones 40 mg/dL (Negative); Urine Protein Negative (Neg-Trace)
--- NOTE | 2023-09-30 01:50 | PC.NURSE ---
PT continuing to complain of severe pain, medicated as per AUG.
[2023-09-30 01:55] LABS: Bacteria Urine None Seen (None Seen); Hyaline Casts Urine 0-2 /LPF (0-2); RBC Urine 0-2 /HPF (0-2); Squamous Epithelial Cell Urine 0-2 /HPF (0-2); WBC Urine 0-5 /HPF (0-5)
[2023-09-30 02:16] VITALS: BP 127/61; PULSE 92; RESP 20; TEMP 37.2; O2SAT 96
[2023-09-30 03:25] VITALS: TEMP 38.1
[2023-09-30 03:26] VITALS: BP 121/60; PULSE 110; RESP 16; O2SAT 96
--- NOTE | 2023-09-30 03:30 | PC.NURSE ---
PT notified by provider that she was being discharged and immediately got dressed in full attire though she was not instructed to. PT and approached nurses station looking to leave while t/w was in a room medicating another pt. ANGELA Millard explained to PT that RN was with another patient and would be there to discharge pt soon. In the meantime, [place] obtained vitals except accurate temp Once RN entered room, t/w obatined accurate temp which was noted to be 100.4. The Pt also began questioning RN regarding plan to be discharged. Pt noted that it was unusual to be discharged so late, she stated that other [facility] hospitals keep patients in the ED if they are there past 10pm and would allow pt to stay the night in the ED despite being medically cleared with plan for home self care. Pt noted that she did not feel like she had much improvement since arriving. T/w also noted that pt's c/c was constipation and abdominal pain and PT had several of bowel movements and in addition had 800ml output of urine after being straight cath, and reminded pt that she stated that she no longer had abdominal pain since, just hemorrhoid and back pain (from recent surgery). In addition, PT confirmed that she did not want to do fleet enema in the hospital and wanted to do it at home. T/w offered to speak with provider regarding doing enema here, pt again declined stating she just wanted to go home at this point. T/W spoke with Dr. rudd regarding pt complaint of not feeling like she has improved and noted temp. Dr. Rudd noted that pts diarrahea is likely norovoirus and noted that t/w was ok to d/c after medicating with ibuprofen to treat the fever. Once returned to the room, pt and her again rushed rn in attempt to leave though still questioning why the hospital did not keep to to allow her to sleep and leave in the morning. Pt left with out RN being able to take out IV. Placed call to home number and pt picked up and confirmed that pt had IV in her arm still. He stated they would be back in the morning to remove. notified charge
[2023-09-30] MEDS: Ibuprofen 400 MG TABLET PO (03:43)
[2023-09-30 06:28] VITALS: BP 121/60; PULSE 110; RESP 16; TEMP 38; O2SAT 96
[2023-09-30 11:32] LABS: Adenovirus F 40/41 Not Detected (Not Detect.); Astrovirus Not Detected (Not Detect.); Campylobacter Not Detected (Not Detect.); Cryptosporidium Not Detected (Not Detect.); Cyclospora cayetanensis Not Detected (Not Detect.); E. coli EAEC Not Detected (Not Detect.); E. coli EPEC Not Detected (Not Detect.); E. coli ETEC Not Detected (Not Detect.); E. coli STEC Not Detected (Not Detect.); Entamoeba histolytica Not Detected (Not Detect.); Giardia lamblia Not Detected (Not Detect.); Norovirus GI/GII Not Detected (Not Detect.); Plesiomonas shigelloides Not Detected (Not Detect.); Rotavirus A Not Detected (Not Detect.); Salmonella Not Detected (Not Detect.); Sapovirus Not Detected (Not Detect.); Shigella sp./EIEC Not Detected (Not Detect.); Vibrio Not Detected (Not Detect.); Vibrio Cholerae Not Detected (Not Detect.); Yersinia enterocolitica Not Detected (Not Detect.)
== END 2023-09-30 04:00 | disposition home or self-care (01) ==
PROVIDERS: Physician Assistant; Emergency Provider Emergency Medicine; PCP Internal Medicine
DX: K59.00 Constipation, unspecified (principal); R10.11 Right upper quadrant pain; R10.31 Right lower quadrant pain; Z79.899 Other long term (current) drug therapy
CPT/HCPCS: 36415; 51701; 74177; 80053; 81001; 83605; 83690; 85025; 87493; 87507; 96374; 96375; 96376; 99284; J1170; J2405; Q9967

== ENCOUNTER 2023-10-16 08:24 | Outpatient (REF) | payer SELFPAY | END 2023-10-16 08:25 | disposition home or self-care (01) | LOC: HO.HAP 08:24 | PROVIDERS: Visit Provider Internal Medicine | DX: Z13.89 Encounter for screening for other disorder (principal) ==

== ENCOUNTER 2023-11-21 14:33 | Outpatient (AMB) | payer OTHER, SELFPAY ==
--- NOTE | 2023-11-21 14:37 | A.OFFVIS_ITS ---
Vital Signs 11/21/23 14:38 Height 4 ft 11 in Weight 101 lb 13.657 oz BMI 20.6 BP 111/62 Blood Pressure Location Rt brachial Position Sitting Pulse 83 Pulse Source Pulse Oximeter Pulse Oximetry (%) 99 Intake Visit Reasons: 2 mth f/up mibi [employer] Required: No Accompanied by: Self / Same As Patient Allergies codeine [CODEINE] Allergy (Severe, Verified 09/29/23 17:38) HYPOTENSION morphine [MORPHINE] Allergy (Severe, Verified 09/11/23 12:33) hives,HYPOTENSION acetaminophen [Percocet] Allergy (Unknown, Verified 09/11/23 12:33) Vomiting oxycodone [From Percocet] Adverse Reaction (Mild, Verified 09/11/23 12:33) VOMITING morphine Allergy (Unknown, Uncoded 09/11/23 12:33) hives percocet Allergy (Unknown, Uncoded 09/11/23 12:33) vomiting Medication List - Last Reconciled 11/21/23 by Marc Montana MD escitalopram oxalate 10 mg PO DAILY esomeprazole magnesium 40 mg PO DAILY levothyroxine 88 mcg PO pravastatin 20 mg PO DAILY HPI Comments Details: Agnes returns for follow-up. Recently seen in consultation regarding shortness of breath. We originally saw her around 2014. She has a history of Hodgkin's lymphoma and had chest radiation more than 25+ years ago. She also has a history of lung cancer and had right upper lobectomy in 2006. Of note, we actually saw her in 2014 for shortness of breath/chest pain but workup was unremarkable. She states that after that she actually felt better for a while but more recently again feeling short of breath with activity. No clear anginal-type chest pains. No history of any cardiac issues like coronary disease or myocardial infarction or cardiomyopathy. She has undergone an echocardiogram and stress test. FORMERLY [facility], [facility] Medical History (Updated 10/01/23 @ 00:01 by Clovis Velazquez) Depression Hypothyroidism Lung cancer Hodgkin disease Surgical History (Updated 11/21/23 @ 14:40 by Lyly Barraza CMA) History of back surgery S/P right rotator cuff repair Family History Mother No problems noted. Father No problems noted. Social History Alcohol intake: current Alcohol intake frequency: holidays/special occasions only Alcohol type: wine Patient Tobacco Use Status: Never used Tobacco Review of Systems Const Denies chills, Denies fatigue, Denies fever(s), Denies frequent falls, Denies weakness, Denies weight gain and Denies weight loss ENT Denies dizziness Card Denies chest pain, Denies leg edema, Denies lightheadedness, Denies palpitations, Denies dyspnea and Denies dyspnea on exertion Resp Denies cough, Denies dyspnea and Denies dyspnea on exertion GI Denies hematochezia Musc Denies abnormal gait, Denies muscle weakness, Denies numbness, Denies radiating pain into limb and Denies tingling Neuro Denies abnormal gait, Denies dizziness, Denies frequent falls, Denies numbness, Denies tingling and Denies weakness Endo Denies fatigue and Denies palpitations Physical Exam Vital Signs: Last Vital Signs Pulse 83 11/21/23 14:38 BP 111/62 11/21/23 14:38 Pulse Ox 99 11/21/23 14:38 BMI result Body Mass Index 20.6 Const General: comfortable and no acute distress Orientation/consciousness: patient oriented x3 HEENT Other: Unremarkable Head: Yes normal to inspection Neck Neck: Yes normal visual inspection Chest Chest palpation & inspection: normal inspection of the chest Resp Auscultation: clear to auscultation bilaterally Cardio Palpation: normal PMI Heart sounds: S1 normal heart sound present, S2 normal heart sound present, no gallops, no murmurs and no rubs GI Palpation (GI): Soft to palpation Back/Spine/Pelvis Other: unremarkable Skin General skin exam: no rashes or lesions noted Neuro General: patient oriented x3 Extrem General: Yes normal to inspection Psych Mental Status: mental status grossly normal Assessment & Plan Assessment & Plan (1) Shortness of breath: Code(s): R06.02 - Shortness of breath Category: Medical Plan In the recent echocardiogram, LVEF 60-65%. Mild diastolic dysfunction. There is description of moderate aortic regurgitation-however, on clinical exam, no clear murmur. IVC normal size and collapsing well. In the chest CT scan, moderate coronary artery calcification. There is right upper lobectomy noted. Mild emphysema. Myocardial perfusion imaging study shows normal perfusion. Based on the above, no clear cardiac etiology to explain shortness of breath. Unclear how much the emphysema/lobectomy plays a role. Recommend pulmonary evaluation. With regard to aortic regurgitation, not hemodynamically significant. Also unlikely to explain her shortness of breath. We can recheck that with an echocardiogram about 2 years. Orders: Referrals Pulmonology Referral R06.02 - Shortness of breath Coding Level of Care Code Est Pt Level 3 (16951) Diagnoses Shortness of breath R06.02
[2023-11-21 14:38] VITALS: BP 111/62; PULSE 83; O2SAT 99; BMI 20.6
== END 2023-11-21 14:55 | disposition home or self-care (01) ==
PROVIDERS: PCP Nurse Practitioner Family; Visit Provider Internal Medicine
DX: R06.02 Shortness of breath (principal)
CPT/HCPCS: 99213

== ENCOUNTER → 2023-11-21 14:33 | Outpatient (BNVA) | payer OTHER, SELFPAY | PROVIDERS: PCP Nurse Practitioner Family; Visit Provider Internal Medicine ==

== ENCOUNTER 2023-11-27 08:54 | Outpatient (AMB) | payer MEDICARE, SELFPAY ==
--- NOTE | 2023-11-27 09:00 | A.OFFVIS_ITS ---
Vital Signs 11/27/23 09:01 Height 4 ft 11 in Weight 101 lb BMI 20.4 BP 114/57 L Blood Pressure Location Lt brachial Position Sitting Pulse 87 Intake Visit Reasons: Difficulty swallowing and weight loss Intake Note: Patient new consult for difficulty swallowing and weight loss. Patient cc: swallowing problems with solid and liquid, rarely acid reflex, and weight loss. Inside Account Executive Required: Yes Accompanied by: Self / Same As Patient Allergies codeine [CODEINE] Allergy (Severe, Verified 11/27/23 08:59) HYPOTENSION morphine [MORPHINE] Allergy (Severe, Verified 11/27/23 08:59) hives,HYPOTENSION acetaminophen [Percocet] Allergy (Unknown, Verified 11/27/23 08:59) Vomiting oxycodone [From Percocet] Adverse Reaction (Mild, Verified 11/27/23 08:59) VOMITING morphine Allergy (Unknown, Uncoded 09/11/23 12:33) hives percocet Allergy (Unknown, Uncoded 09/11/23 12:33) vomiting Medication List - Last Reconciled 11/27/23 by Na Rosales PA-C escitalopram oxalate 10 mg PO DAILY esomeprazole magnesium 40 mg PO DAILY levothyroxine 88 mcg PO pravastatin 20 mg PO DAILY HPI Comments Details: 78-year-old female hx lymphoma, lung cancer s/p radiation, chemotherapy referred with weight loss and dysphagia-sometimes she has trouble swallowing--she has been seen by ENT she feels many of her issues are due to previous over radiation For the past 4-5 months- sx not often- think its allergies-seems to pass after coughing- Rotator cuff surgery 3 years ago- messed up mouth- lost about 18 pounds- and never gained back- she has hx radiation and chemo fo Hodgekins and lung ca - years ago-she says she has been told she had been over radiated and likely the cause of many of her symptoms She eats well- her wt has been stable for the past 3 years- She has up cominng pulmonary consult- She will likely have another ortho surgery - awaiting ortho appt- Appetite-has good, she eats a healthy diet, she has not lost weight her weight has been steady Bowels-no issues No CP-nausea, vomiting, hematemesis hematochezia fever or chills COUNT INCLUDES THE [facility] Medical History (Updated 11/28/23 @ 11:14 by Na Rosales PA-C) Depression Hypothyroidism Lung cancer Hodgkin disease Surgical History History of back surgery S/P right rotator cuff repair Family History Mother No problems noted. Father No problems noted. Social History (Updated 11/27/23 @ 09:33 by Na Rosales PA-C) Household Members Other:: 83 Alcohol intake: current Alcohol intake frequency: holidays/special occasions only Alcohol type: wine Patient Tobacco Use Status: Never used Tobacco Current occupational status: unemployed Review of Systems Const All systems reviewed & are unremarkable except as noted in HPI and below Denies chills, Denies fatigue, Denies fever(s) and Denies weight loss (stable 3 years) ENT Details: hearing aides Denies Normal hearing present and Reports dysphagia (occ) Card Denies chest pain, Reports dyspnea and Reports dyspnea on exertion Resp Reports dyspnea and Reports dyspnea on exertion GI Denies abdominal pain, Denies change in bowel habits, Reports dysphagia (occ), Denies heartburn, Denies nausea and Denies vomiting Musc Reports arthralgias and Reports limited range of motion Neuro Denies Normal hearing present Endo Denies fatigue Physical Exam Vital Signs: Last Vital Signs Pulse 87 11/27/23 09:01 BP 114/57 L 11/27/23 09:01 BMI result Body Mass Index 20.4 Const General: cooperative, no acute distress and well groomed Nutritional Appearance: thin Orientation/consciousness: patient oriented x3 Eyes Sclerae: sclerae normal Resp Other: Lungs clear Effort & Inspection: normal respiratory effort and able to speak in complete sentences Auscultation: no rales, no rhonchi and no wheezes Cardio Rate: regular rate Rhythm: regular rhythm Heart sounds: S1 normal heart sound present and S2 normal heart sound present GI Palpation (GI): Soft to palpation and nontender Auscultation: normal bowel sounds Skin General skin exam: no rashes or lesions noted Neuro General: patient oriented x3 Cranial nerves: No Normal hearing present Psych Appearance: well kempt Speech and movement: Clear speech present Affect: normal affect Attitude: cooperative Thought process: Normal thought process present Thought content: Normal thought content present Insight: Good insight present (Psych) Judgement: Good judgement present (Psych) Results Reviewed Results Reviewed: CT/CT abdomen pelvis w IV con IMPRESSION: 1. There is retained rectal stool with rectal expansion up to 6.5 cm with mild rectal thickening and perirectal infiltration. Suspect a stercoral colitis. 2. No evidence of small bowel obstruction. 3. There appears to be postoperative change at L4-L5 and L3-L4 with soft tissue within the spinal canal and apparent spinal canal narrowing. Correlation for significance needed. Assessment & Plan Assessment & Plan (1) Dysphagia: Comment: Intermittent Code(s): R13.10 - Dysphagia, unspecified Category: Medical Plan: Intermittent Plan She will continue to chew her food well eat slowly She has upcoming ortho surgery-will get barium swallow to assess for stricture ETC-other causes for her sx Orders: Orders [place] barium swallow 11/27/23 R13.10 - Dysphagia, unspecified Patient Instructions: Very pleasant thin 78-year-old female history lymphoma, lung cancer s/p radiation/chemo referred with intermittent dysphagia She has been seen by ENT-possible radiation effects This time will get barium swallow to assess further Has upcoming repeat ortho surgery She will continue to eat slowly, chew her food well-prevent choking She agrees to call with any change in symptoms health status She will call for results after barium study Coding Level of Care Code New Pt Level 4 (49590) Diagnoses Dysphagia R13.10 Time Spent (min) 35
[2023-11-27 09:01] VITALS: BP 114/57; PULSE 87; BMI 20.4
== END 2023-11-27 10:03 | disposition home or self-care (01) ==
PROVIDERS: PCP Internal Medicine; Visit Provider Physician Assistant
DX: R13.10 Dysphagia, unspecified (principal)
CPT/HCPCS: 99204

== ENCOUNTER → 2023-11-27 08:54 | Outpatient (BNVA) | payer MEDICARE, SELFPAY | PROVIDERS: PCP Nurse Practitioner Family; Visit Provider Physician Assistant | DX: R13.10 Dysphagia, unspecified (principal); R63.4 Abnormal weight loss; Z68.20 Body mass index [BMI] 20.0-20.9, adult | CPT/HCPCS: 99202 ==

== ENCOUNTER 2023-12-04 13:32 | Outpatient (AMB) | payer MEDICARE, SELFPAY ==
[2023-12-04 13:49] VITALS: BP 128/64; PULSE 85; O2SAT 97; BMI 20.6
--- NOTE | 2023-12-04 13:49 | A.OFFVIS_ITS ---
Vital Signs 12/04/23 13:49 Height 4 ft 11 in Weight 102 lb 2 oz BMI 20.6 BP 128/64 Blood Pressure Location Lt brachial Position Sitting Pulse 85 Pulse Source Pulse Oximeter Pulse Oximetry (%) 97 Oxygen Delivery Method Room Air Intake Visit Reasons: Shortness of breath Allergies codeine [CODEINE] Allergy (Severe, Verified 12/04/23 13:54) HYPOTENSION morphine [MORPHINE] Allergy (Severe, Verified 12/04/23 13:54) hives,HYPOTENSION acetaminophen [Percocet] Allergy (Unknown, Verified 12/04/23 13:54) Vomiting oxycodone [From Percocet] Adverse Reaction (Mild, Verified 12/04/23 13:54) VOMITING morphine Allergy (Unknown, Uncoded 12/04/23 13:54) hives percocet Allergy (Unknown, Uncoded 12/04/23 13:54) vomiting HPI HPI Shortness of breath: Details: Agnes is a pleasant 78 year old female, never smoker, with h/o Hodgkin's lymphoma s/p chest radiation 25+ years ago, h/o lung cancer s/p right upper lobectomy and hypothyroidism. She was referred for pulmonary evaluation by cardiology for persistent dyspnea on exertion. She reports more notable dyspnea on exertion with associated chest tightness for the last three years, recovering quickly with rest. She denies cough or wheezing. She did note that she has been less active over the last few years due to back pain which she recently under went surgery, having complete resolution of lower back symptoms. She was evaluated by cardiology who could not determine a clear cardiac etiology to explain shortness of breath. Recent echocardiogram, LVEF 60-65%, mild diastolic dysfunction as well as moderate aortic regurgitation. Myocardial perfusion imaging study shows normal perfusion. She denies any prior history of asthma, although did note as a child would have respiratory symptoms when active. She reports seasonal allergies, not interested in allergy testing. She denies any occupational exposures. She did have significant second hand smoke exposure. She reports sister, smoker, with emphysema otherwise denies any pertinent family history. Chest CT performed in August 2023, report below. [facility] Medical History (Updated 12/04/23 @ 20:52 by Bianca Hilario NP) Depression Hypothyroidism Lung cancer Hodgkin disease Surgical History History of back surgery S/P right rotator cuff repair Family History Mother No problems noted. Father No problems noted. Social History Household Members Other:: 83 Alcohol intake: current Alcohol intake frequency: holidays/special occasions only Alcohol type: wine Patient Tobacco Use Status: Never used Tobacco Current occupational status: unemployed Review of Systems Const Denies chills, Denies excessive sweating, Denies fever(s), Denies headache(s) and Denies night sweats Eyes Denies dry eyes, Denies irritation and Denies itchy eyes ENT Reports Normal hearing present, Denies headache(s), Denies nasal congestion, Denies nasal discharge and Denies sore throat Card Denies chest pain, Denies chest pain at rest, Denies chest pain with activity, Denies claudication, Denies leg edema, Denies orthopnea and Denies paroxysmal nocturnal dyspnea Resp Denies chest congestion, Denies cough, Denies excessive phlegm production, Denies pain on inspiration, Denies pain with cough, Denies stridor and Denies wheezing Musc Denies myalgias Neuro Reports Normal hearing present and Denies headache(s) Endo Denies excessive sweating Jayro/Lymph Denies lymphadenopathy Aller/Immun Denies itchy eyes, Denies seasonal rhinorrhea and Denies wheezing Physical Exam Vital Signs: Last Vital Signs Pulse 85 12/04/23 13:49 BP 128/64 12/04/23 13:49 Pulse Ox 97 12/04/23 13:49 Oxygen Delivery Method Room Air 12/04/23 13:49 BMI result Body Mass Index 20.6 Const General: cooperative, healthy appearing, comfortable, no acute distress, well developed and alert Orientation/consciousness: patient oriented x3 Limitations: no limitations HEENT Head: Yes normal to inspection, Yes normocephalic and Yes atraumatic Ears: hearing grossly normal bilaterally and external ears normal Eyes General: appearance normal, both eyes and all related structures Eyelids: Yes eyelids normal Sclerae: sclerae normal EOM: EOMs intact bilaterally Neck Neck: Yes normal visual inspection and Yes no lymphadenopathy Lymphatic: no lymphadenopathy noted Chest Chest palpation & inspection: normal inspection of the chest Resp Effort & Inspection: normal respiratory effort, able to speak in complete sentences, no audible wheezes, no cough, no stridor, not tachypneic, no tripod positioning and no use of accessory muscles Auscultation: clear to auscultation bilaterally Cardio Jugular venous distension: no JVD Rate: regular rate Rhythm: regular rhythm Skin Other: warm, dry General skin exam: no rashes or lesions noted Neuro General: patient oriented x3 Cranial nerves: Yes Normal hearing present Cognition (Neuro): normal cognition Gait exam (Neuro): Normal gait present Extrem General: Yes normal to inspection, Yes capillary refill normal, Yes no clubbing, cyanosis or edema and Yes no pedal edema Psych Appearance: grossly normal and well kempt Speech and movement: Normal speech and movement present and Clear speech present Affect: normal affect Attitude: cooperative Thought process: Normal thought process present Thought content: Normal thought content present Insight: Good insight present (Psych) Judgement: Good judgement present (Psych) Results Reviewed Results Reviewed: [address] [address] [address] Scan Report Signed Patient: Agnes Joseph MR#: [id number] : 1945 Acct:[id number] Age/Sex: 78 / F ADM Date: 08/29/23 Loc: HO.CT Attending Dr: Gabo Henderson NP Ordering Physician: GABO HENDERSON NP Date of Service: 08/29/23 Procedure(s): CT chest w IV con Accession Number(s): [id number] cc: GABO HENDERSON NP~ EXAMINATION: CT CHEST WITH CONTRAST CLINICAL INFORMATION: Malignant neoplasm of bronchus with dyspnea on exertion. COMPARISON: Chest radiograph 05/27/2019, CT chest 04/17/2017. TECHNIQUE: Multidetector volumetric CT imaging of the chest was obtained after the administration of 65 mL of Omnipaque 350 intravenous contrast without immediate adverse reactions. Axial MIP volume rendering provided. Sagittal and coronal reformatted images were obtained. This CT examination was performed using dose optimization techniques as appropriate, variously including the following: *Automated exposure control *Adjustment of mA and/or kV according to patient size (this includes techniques or standardized protocols for targeted exams where dose is matched to indication/reason for exam; i.e. extremities or head) *Use of iterative reconstruction technique DLP: 65 mGy-cm FINDINGS: LUNGS: Biapical pleural-parenchymal scarring is present. Mild emphysematous changes are seen. Mild saber sheath trachea present. Status post right upper lobectomy. Small pulmonary nodules are unchanged including a 4 mm left upper lobe nodule (5:39 compare prior 6:96) and a 3 mm right upper lobe nodule medially (5:102 compare prior 6:275). No new or worrisome lung nodule is seen to suggest metastatic disease. No consolidations. MEDIASTINUM: Calcified nonenlarged mediastinal lymph nodes are again seen. No mediastinal or hilar lymphadenopathy. Moderate coronary calcification is seen. Heart size normal. The thyroid is not well seen. PLEURA: There is no pleural effusion. No pleural mass or thickening. AXILLA: No lymphadenopathy. UPPER ABDOMEN: Unremarkable. OSSEOUS STRUCTURES: There are old healed right-sided rib fractures. There is a new right shoulder prosthesis compared to the 04/17/[address]/CT chest w IV con IMPRESSION: 1. Status post right upper lobectomy with no evidence of recurrent or metastatic disease. 2. Incidental note made of mild emphysema, stable small pulmonary nodules and other findings described above. 3. A definite cause for the patient's dyspnea on exertion has not been found. Fleischner guidelines were followed. 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 Assessment & Plan Assessment & Plan (1) Shortness of breath: Code(s): R06.02 - Shortness of breath Category: Medical (2) History of lung cancer: Code(s): Z85.118 - Personal history of other malignant neoplasm of bronchus and lung Category: Medical (3) History of Hodgkin's lymphoma: Code(s): Z85.71 - Personal history of Hodgkin lymphoma Category: Medical (4) Status post radiation therapy: Code(s): Z92.3 - Personal history of irradiation Category: Surgical (5) Emphysema of lung: Code(s): J43.9 - Emphysema, unspecified Category: Medical (6) Multiple pulmonary nodules: Code(s): R91.8 - Other nonspecific abnormal finding of lung field Category: Medical Plan Agnes presents with dyspnea on exertion for the past three years with no prior history of respiratory conditions, however did undergo radiation for hodgkin's lymphoma and 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 She had cardiac workup which did not reveal any definite cardiac contribution. Will send for PFT to assess. Chest CT noted multiple pulmonary nodules <4 mm, will send for repeat chest CT in one year to assess for stability. All questions were answered and patient is in agreement of plan. Will follow up to review results or sooner if needed. Orders: Orders CT chest wo IV con 9 Months R91.8 - Other nonspecific abnormal finding of lung field, Z85.118 - Personal history of other malignant neoplasm of bronchus and lung PFT pulmonary function test Today R06.02 - Shortness of breath Coding Level of Care Code New Pt Level 4 (83600) Diagnoses Shortness of breath R06.02 History of lung cancer Z85.118 History of Hodgkin's lymphoma Z85.71 Status post radiation therapy Z92.3 Emphysema of lung J43.9 Multiple pulmonary nodules R91.8
== END 2023-12-04 14:36 | disposition home or self-care (01) ==
PROVIDERS: PCP Internal Medicine; Visit Provider Nurse Practitioner Family
DX: R06.02 Shortness of breath (principal); Z85.118 Personal history of other malignant neoplasm of bronchus and lung; Z85.71 Personal history of Hodgkin lymphoma; Z92.3 Personal history of irradiation; J43.9 Emphysema, unspecified; R91.8 Other nonspecific abnormal finding of lung field
CPT/HCPCS: 99204

== ENCOUNTER → 2023-12-04 13:32 | Outpatient (BNVA) | payer MEDICARE, SELFPAY | PROVIDERS: PCP Internal Medicine; Visit Provider Nurse Practitioner Family | DX: R06.02 Shortness of breath (principal); J43.9 Emphysema, unspecified; R91.8 Other nonspecific abnormal finding of lung field; Z85.118 Personal history of other malignant neoplasm of bronchus and lung; Z85.71 Personal history of Hodgkin lymphoma; Z92.3 Personal history of irradiation | CPT/HCPCS: 99202 ==

== ENCOUNTER 2024-01-20 07:57 | Outpatient (REF) | payer MEDICARE, SELFPAY | END 2024-01-20 07:58 | disposition home or self-care (01) | LOC: HO.MAMMO 07:57 | PROVIDERS: PCP Internal Medicine; Visit Provider Internal Medicine | DX: Z12.31 Encounter for screening mammogram for malignant neoplasm of breast (principal) | CPT/HCPCS: 77063; 77067 ==

== ENCOUNTER → 2024-01-20 08:15 | Outpatient (BNV) | payer MEDICARE, SELFPAY | PROVIDERS: PCP Internal Medicine; Visit Provider Radiology Diagnostic Radiology | DX: Z12.31 Encounter for screening mammogram for malignant neoplasm of breast (principal) | CPT/HCPCS: 77063; 77067 ==

== ENCOUNTER 2024-01-29 11:07 | Outpatient (AMB) | payer MEDICARE, SELFPAY ==
--- NOTE | 2024-01-29 13:14 | A.OFFVIS_ITS ---
Vital Signs 01/29/24 13:17 Height 4 ft 11 in Weight 102 lb 2 oz BMI 20.6 BP 118/66 Blood Pressure Location Lt brachial Position Sitting Pulse 75 Pulse Source Pulse Oximeter Pulse Oximetry (%) 97 Oxygen Delivery Method Room Air Intake Visit Reasons: Shortness of breath Allergies codeine [CODEINE] Allergy (Severe, Verified 01/29/24 13:19) HYPOTENSION morphine [MORPHINE] Allergy (Severe, Verified 01/29/24 13:19) hives,HYPOTENSION acetaminophen [Percocet] Allergy (Unknown, Verified 01/29/24 13:19) Vomiting oxycodone [From Percocet] Adverse Reaction (Mild, Verified 01/29/24 13:19) VOMITING morphine Allergy (Unknown, Uncoded 01/29/24 13:19) hives percocet Allergy (Unknown, Uncoded 01/29/24 13:19) vomiting HPI HPI Shortness of breath: Details: Agnes is a pleasant 78 year old female, never smoker, with h/o Hodgkin's lymphoma s/p chest radiation 25+ years ago, h/o lung cancer s/p right upper lobectomy and hypothyroidism. Agnes continues to report dyspnea with exertion, denies cough, wheezing or chest tightness. At the last visit, she was sent for PFT however this has not been scheduled yet. Offered to send order to another location however she would like to wait until this is completed at [facility]. She denies any visits to urgent care or hospitalizations related to respiratory distress. [facility] Medical History (Updated 12/04/23 @ 20:52 by Bianca Hilario NP) Depression Hypothyroidism Lung cancer Hodgkin disease Surgical History History of back surgery S/P right rotator cuff repair Family History Mother No problems noted. Father No problems noted. Social History Household Members Other:: 83 Alcohol intake: current Alcohol intake frequency: holidays/special occasions only Alcohol type: wine Patient Tobacco Use Status: Never used Tobacco Current occupational status: unemployed Review of Systems Const Denies chills, Denies excessive sweating, Denies fever(s), Denies headache(s) and Denies night sweats Eyes Denies dry eyes, Denies irritation and Denies itchy eyes ENT Reports Normal hearing present, Denies headache(s), Denies nasal congestion, Denies nasal discharge and Denies sore throat Card Denies chest pain, Denies chest pain at rest, Denies chest pain with activity, Denies claudication, Denies leg edema, Denies orthopnea and Denies paroxysmal nocturnal dyspnea Resp Denies chest congestion, Denies cough, Denies excessive phlegm production, Denies pain on inspiration, Denies pain with cough, Denies stridor and Denies wheezing Musc Denies myalgias Neuro Reports Normal hearing present and Denies headache(s) Endo Denies excessive sweating Jayro/Lymph Denies lymphadenopathy Aller/Immun Denies itchy eyes, Denies seasonal rhinorrhea and Denies wheezing Physical Exam Vital Signs: Last Vital Signs Pulse 75 01/29/24 13:17 BP 118/66 01/29/24 13:17 Pulse Ox 97 01/29/24 13:17 Oxygen Delivery Method Room Air 01/29/24 13:17 BMI result Body Mass Index 20.6 Const General: cooperative, healthy appearing, comfortable, no acute distress, well developed and alert Orientation/consciousness: patient oriented x3 Limitations: no limitations HEENT Head: Yes normal to inspection, Yes normocephalic and Yes atraumatic Ears: hearing grossly normal bilaterally and external ears normal Mouth: moist mucous membranes abnormal (d/t prior radiation) Eyes General: appearance normal, both eyes and all related structures Eyelids: Yes eyelids normal Sclerae: sclerae normal EOM: EOMs intact bilaterally Neck Neck: Yes normal visual inspection and Yes no lymphadenopathy Lymphatic: no lymphadenopathy noted Chest Chest palpation & inspection: normal inspection of the chest Resp Effort & Inspection: normal respiratory effort, able to speak in complete sentences, no audible wheezes, no cough, no stridor, not tachypneic, no tripod positioning and no use of accessory muscles Auscultation: clear to auscultation bilaterally Cardio Jugular venous distension: no JVD Rate: regular rate Rhythm: regular rhythm Skin Other: warm, dry General skin exam: no rashes or lesions noted Neuro General: patient oriented x3 Cranial nerves: Yes Normal hearing present Cognition (Neuro): normal cognition Gait exam (Neuro): Normal gait present Extrem General: Yes normal to inspection, Yes capillary refill normal, Yes no clubbing, cyanosis or edema and Yes no pedal edema Psych Appearance: grossly normal and well kempt Speech and movement: Normal speech and movement present and Clear speech present Affect: normal affect Attitude: cooperative Thought process: Normal thought process present Thought content: Normal thought content present Insight: Good insight present (Psych) Judgement: Good judgement present (Psych) Assessment & Plan Assessment & Plan (1) Shortness of breath: Code(s): R06.02 - Shortness of breath Category: Medical (2) History of lung cancer: Code(s): Z85.118 - Personal history of other malignant neoplasm of bronchus and lung Category: Medical (3) History of Hodgkin's lymphoma: Code(s): Z85.71 - Personal history of Hodgkin lymphoma Category: Medical (4) Status post radiation therapy: Code(s): Z92.3 - Personal history of irradiation Category: Medical (5) Emphysema of lung: Code(s): J43.9 - Emphysema, unspecified Category: Medical (6) Multiple pulmonary nodules: Code(s): R91.8 - Other nonspecific abnormal finding of lung field Category: Medical Plan Agnes presents with dyspnea on exertion, unclear etiology, Prior cardiac evaluation unremarkable. PFT order placed at last visit, however has not been scheduled yet. Offered to send to alternate location to be performed soon, however declined. Offered to trial ELINA, but she declined. At this time, she would like to wait for PFT to be performed. Prior Chest CT noted multiple pulmonary nodules <4 mm, order has been placed for repeat chest CT next spring to assess for stability. All questions were answered and patient is in agreement of plan. Will follow up to review results or sooner if needed. Coding Level of Care Code Est Pt Level 3 (00776) Diagnoses Shortness of breath R06.02 History of lung cancer Z85.118 History of Hodgkin's lymphoma Z85.71 Status post radiation therapy Z92.3 Emphysema of lung J43.9 Multiple pulmonary nodules R91.8
[2024-01-29 13:17] VITALS: BP 118/66; PULSE 75; O2SAT 97; BMI 20.6
== END 2024-01-29 13:38 | disposition home or self-care (01) ==
PROVIDERS: PCP Internal Medicine; Visit Provider Nurse Practitioner Family
DX: R06.02 Shortness of breath (principal); Z85.118 Personal history of other malignant neoplasm of bronchus and lung; Z85.71 Personal history of Hodgkin lymphoma; Z92.3 Personal history of irradiation; J43.9 Emphysema, unspecified; R91.8 Other nonspecific abnormal finding of lung field
CPT/HCPCS: 99213

== ENCOUNTER → 2024-01-29 11:07 | Outpatient (BNVA) | payer MEDICARE, SELFPAY | PROVIDERS: PCP Internal Medicine; Visit Provider Nurse Practitioner Family | DX: R06.02 Shortness of breath (principal); J43.9 Emphysema, unspecified; R91.8 Other nonspecific abnormal finding of lung field; Z85.118 Personal history of other malignant neoplasm of bronchus and lung; Z85.71 Personal history of Hodgkin lymphoma; Z92.3 Personal history of irradiation | CPT/HCPCS: 99212 ==

== ENCOUNTER 2024-01-30 10:22 | Outpatient (REF) | payer SELFPAY | END 2024-01-30 10:23 | disposition home or self-care (01) | LOC: HO.HAP 10:22 | PROVIDERS: Visit Provider Internal Medicine | DX: Z13.89 Encounter for screening for other disorder (principal) ==

== ENCOUNTER 2024-02-03 07:25 | Outpatient (REF) | payer MEDICARE, SELFPAY ==
--- NOTE | ~2024-02-03 | FL_ITS ---
EXAMINATION: XR FLUOROSCOPY UPPER GI WITH AIR CLINICAL INFORMATION: Dysphagia COMPARISON: None TECHNIQUE: Fluoroscopic air contrast upper GI examination was performed utilizing standard techniques with thin and thick barium and effervescent granules. Numerous spot images were obtained. FINDINGS: Lateral cine images of the oropharynx and hypopharynx demonstrate normal swallow mechanism with normal epiglottic inversion and soft palate elevation. Trace laryngeal penetration is seen with thick barium. No tracheal penetration, glottic or subglottic aspiration identified. No nasopharyngeal reflux present. Hypopharyngeal structures appear normal without evidence of mass or diverticulum. There was no significant cricopharyngeal achalasia. There is mild posterior indentation of the cervical esophagus at level C5-C6 due to a small bridging anterior osteophyte. Dual and single contrast images of the esophagus demonstrate a normal caliber and contour. There is a granular appearance of the esophageal mucosa, which suggests esophagitis. No stricture or mass identified. There is a oval filling defect in the proximal one third (RF 1-5, image 59) suggesting a polypoid mucosal mass or potential ulceration. Esophageal peristalsis is moderately disorganized. A small type I hiatal hernia is present. There are several polypoid round small filling defects in the hiatus hernia and fundus of the stomach, suggesting small hyperplastic polyps. Significant gastroesophageal reflux is seen up to the thoracic inlet. Dual contrast and single contrast images of the stomach demonstrated a normal contour. Evaluation of the gastric mucosa is limited due to lack of distention of the stomach from poor tolerance and effervescent granules. The gastric rugal folds have a thickened appearance which suggests gastritis. No masses are present . Contrast freely passed into the gastric antrum and duodenal bulb without delay. Single and air-contrast images of the duodenal bulb demonstrate no abnormality. The duodenal sweep has a normal appearance, course, and mucosal fold appearance. The imaged proximal jejunum has a normal fold pattern and caliber. FLUOROSCOPY TIME: 4 minutes 14 sec Number of Spot Images: 9 Number of Cine: 16 DOSE AREA PRODUCT: 1151 uGy-m2 (microgray-meter squared) FL/FL barium swallow with air IMPRESSION: 1. Trace tracheal penetration with thick barium. No subglottic aspiration. 2. There is mild posterior indentation of the cervical esophagus at the level C5-C6 due to a small bridging anterior osteophyte. This is unlikely contributing to the patient's symptoms. 3. Granular appearance of the esophageal mucosa which suggests esophagitis. Oval filling defect in the proximal one third of the esophagus could represent a subtle mucosal mass or ulceration. 4. Moderate esophageal dysmotility. 5. Small type I hiatal hernia with severe gastroesophageal reflux. Numerous small filling defects in the hiatus hernia and fundus of the stomach suggests hyperplastic polyps. 6. Limited evaluation of the gastric mucosal folds due to lack of distention of the stomach from poor retention of the effervescent granules. The gastric rugal folds have a thickened appearance which suggests gastritis. This procedure was performed by Ronaldo Mcdowell PA-C, and supervised by Dr. Hernandez
== END 2024-02-03 07:26 | disposition home or self-care (01) ==
LOC: HO.XRAY 07:25
PROVIDERS: Visit Provider Physician Assistant
DX: R13.10 Dysphagia, unspecified (principal)
CPT/HCPCS: 74221

== ENCOUNTER → 2024-02-03 07:27 | Outpatient (BNV) | payer MEDICARE, SELFPAY | PROVIDERS: Visit Provider Physician Assistant Surgical | DX: R13.10 Dysphagia, unspecified (principal) | CPT/HCPCS: 74246 ==

== ENCOUNTER 2024-04-06 10:14 | Outpatient (AMB) | payer MEDICARE, SELFPAY ==
[2024-04-06 10:30] VITALS: BP 126/72; PULSE 87; O2SAT 97; BMI 20.4
--- NOTE | 2024-04-06 10:30 | MHC.PC.OV ---
Vital Signs 04/06/24 10:30 Height 4 ft 11 in Weight 101 lb BMI 20.4 BP 126/72 Blood Pressure Location Lt brachial Position Sitting Pulse 87 Pulse Source Pulse Oximeter Pulse Oximetry (%) 97 Oxygen Delivery Method Room Air Intake Visit Reasons: New patient PE ok per Dr. Carpenter Intake Note: Pt is here today for New patient visit. Allergies codeine [CODEINE] Allergy (Severe, Verified 04/06/24 10:47) HYPOTENSION morphine [MORPHINE] Allergy (Severe, Verified 04/06/24 10:47) hives,HYPOTENSION acetaminophen [Percocet] Allergy (Unknown, Verified 04/06/24 10:47) Vomiting oxycodone [From Percocet] Adverse Reaction (Mild, Verified 04/06/24 10:47) VOMITING morphine Allergy (Unknown, Uncoded 04/06/24 10:47) hives percocet Allergy (Unknown, Uncoded 04/06/24 10:47) vomiting Medication List - Last Reconciled 04/06/24 by Ida Carpenter MD escitalopram oxalate 10 mg PO DAILY esomeprazole magnesium 40 mg PO DAILY levothyroxine 88 mcg PO pravastatin 20 mg PO DAILY Tobacco use date assessed: 04/06/24 Fall risk assessment: 2 + Falls in past year Last assessed Fall Risk: 04/06/24 Dental Screening Dental Screen Date: 04/06/24 Did you have a dental visit in the last 12 months?: Yes Did you have a dental problem in the last 6 months where you did not have access to dental care?: No Was dental information given to patient?: Patient has dentist HPI New patient PE ok per Dr. 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 PMH includes hypothyroid and hyperlipid. Pt c/o chronic bilateral shoulder pain and and stiffness. She is established with [facility] and had right shoulder rotator cuff tear in the past. PFSH Medical History (Updated 04/06/24 @ 15:24 by Ida Carpenter MD) Depression Hypothyroidism Lung cancer Hodgkin disease Surgical History History of back surgery S/P right rotator cuff repair Family History Mother No problems noted. Father Substance use disorder Father No problems noted. Brother Dementia Sister Dementia Social History Household Members Other:: 83 Housing: House Alcohol intake: current Alcohol intake frequency: holidays/special occasions only Alcohol type: wine Patient Tobacco Use Status: Never used Tobacco e-Cigarette/Vaping Use: Never Used service: No Current occupational status: retired Cognitive needs: No Hearing needs: Yes Vision needs: Yes Questionnaire PHQ-9 Over the last 2 weeks, how often have you been bothered by any of the following problems? 1. Little interest or pleasure in doing things: not at all 2. Feeling down, depressed, or hopeless: not at all 3. Trouble falling or staying asleep, or sleeping too much: not at all 4. Feeling tired or having little energy: not at all 5. Poor appetite or overeating: not at all 6. Feeling bad about yourself - or that you are a failure or have let yourself or your family down: not at all 7. Trouble concentrating on things, such as reading the newspaper or watching television: not at all 8. Moving or speaking so slowly that other people could have noticed. Or the opposite - being so fidgety or restless that you have been moving around a lot more than usual: not at all 9. Thoughts that you would be better off or of hurting yourself in some way: not at all Total score: 0 Depression Screening Interpretation: Negative Depression Screening Done: Yes 30245 - PHQ-9 Billing: Yes Source: Developed by Drs. Pineda Narayanan, Guillermina Hernandez, Spenser Meneses and colleagues, with an educational ana from [employer]. Thrive Questionnaire Date Thrive assessed: 04/06/24 I am a: Patient What is your living situation today?: I have a steady place to live Within the past 12 months, did the food you bought not last and you didn't have the money to get more?: Never true Within the past 12 months, did you worry whether your food would run out before you got money to buy more?: Never true Do you have trouble paying for medicines?: No Do you have trouble getting transportation to medical appointments?: No Do you have trouble paying your heating and electricity bill?: No Do you have trouble taking care of your child, family member or friend?: No Do you have trouble with day-to-day activities such as bathing, preparing meals, shopping, managing finances, etc.?: No Are you currently unemployed and looking for a job?: No Are you interested in more education?: No Please select the resources that you would like help with: None THRIVE Score: 0 AUDIT C Alcohol Use Questionnaire (AUDIT-C) 1. How often do you have a drink containing alcohol?: Monthly or less 2. How many drinks containing alcohol do you have on a typical day when you are drinking?: 1 or 2 3. How often do you have six or more drinks on one occasion?: Never Total Score: 1 BRODERICK-7 AMB Questionnaire BRODERICK-7 Date BRODERICK - 7 assessed: 04/06/24 Feeling nervous, anxious, or on edge: 0 = Not at all Not being able to stop or control worryin = Not at all Worrying too much about different things: 0 = Not at all Trouble relaxin = Not at all Being so restless that it is hard to sit still: 0 = Not at all Becoming easily annoyed or irritable: 0 = Not at all Feeling afraid as if something awful might happen: 0 = Not at all Total BRODERICK-7 score (0-4 normal; 5-9 mild; 10-14 moderate; 15-21 severe): 0 Source: Developed by Drs. Pineda Narayanan, Guillermina Hernandez, Spenser Meneses and colleagues, with an educational ana from [employer]. BRODERICK-7 Assessment Billing BRODERICK-7 Assessment Tool: BRODERICK-7 Assessment 81452 Review of Systems Const All systems reviewed & are unremarkable except as noted in HPI and below Reports no additional complaints Eyes Reports no additional complaints ENT Reports no additional complaints Resp Reports no additional complaints GI Reports no additional complaints Reports no additional complaints Physical exam (Primary Care) Vital Signs: Last Vital Signs Pulse 87 04/06/24 10:30 BP 126/72 04/06/24 10:30 Pulse Ox 97 04/06/24 10:30 Oxygen Delivery Method Room Air 04/06/24 10:30 BMI result Body Mass Index 20.4 Tobacco/Smoking Status: Tobacco use Status Tobacco use date assessed 04/06/24 04/06/24 10:54 Patient Tobacco Use Status Never used Tobacco 04/06/24 10:54 e-Cigarette/Vaping Use Never Used 04/06/24 10:54 PHQ-9: PHQ-9 Score PHQ-9: Total score 0 04/06/24 11:31 Depression Screening Interpretation: Negative Thrive Assessment: Date of Thrive Assessment Date Thrive assessed 04/06/24 04/06/24 10:56 Const General: no acute distress HENMT Head: Yes normal to inspection Ears: hearing grossly normal bilaterally Face and sinus: Yes normal facial exam Mouth: Normal oral and palatal mucosa present Throat: Yes posterior oropharynx normal Eyes General: appearance normal, both eyes and all related structures Resp Effort & Inspection: normal respiratory effort Auscultation: diminished lung sounds Cardio Rhythm: regular rhythm Heart sounds: S1 normal heart sound present and S2 normal heart sound present GI Inspection: Yes normal to inspection Palpation (GI): Soft to palpation Percussion: Yes normal to percussion Auscultation: normal bowel sounds Coding Level of Care Code New Pt Prev Care >65yr (16280) Diagnoses Hypothyroidism E03.9 Emphysema of lung J43.9 Multiple pulmonary nodules R91.8 Hyperlipidemia E78.5 Mass of esophagus K22.89 Shortness of breath R06.02 Anemia D64.9 Additional Codes BRODERICK-7 Assessment Billing - BRODERICK-7 Assessment Tool: BRODERICK-7 Assessment 24477 ([id number]) Assessment & Plan Assessment & Plan (1) Hypothyroidism: Code(s): E03.9 - Hypothyroidism, unspecified Category: Medical Plan: Continue levothyroxine (2) Emphysema of lung: Comment: Mild on CT of the chest 09/2023 Code(s): J43.9 - Emphysema, unspecified Category: Medical Plan: No inhalers (3) Multiple pulmonary nodules: Comment: Chest CT 09/2023 S/P RUL lobectomy, small pul nodules, mild emphysema Code(s): R91.8 - Other nonspecific abnormal finding of lung field Category: Medical Plan: Follow-up CT p.r.n. (4) Hyperlipidemia: Code(s): E78.5 - Hyperlipidemia, unspecified Category: Medical Plan: Continue pravastatin return for fasting blood work (5) Mass of esophagus: Comment: on barium swallow 01/2024 , f/u with GI Code(s): K22.89 - Other specified disease of esophagus Category: Medical Plan: Follow-up with [facility] (6) Shortness of breath: Comment: negative nuclear stress test 09/2023 Code(s): R06.02 - Shortness of breath Category: Medical Plan: Negative stress test (7) Anemia: Code(s): D64.9 - Anemia, unspecified Category: Medical Plan: Patient will return for fasting blood work including CBC iron studies and B12 level Orders: Orders Complete Blood Count Auto Diff 6 Months E03.9 - Hypothyroidism, unspecified, E78.5 - Hyperlipidemia, unspecified, J43.9 - Emphysema, unspecified, R91.8 - Other nonspecific abnormal finding of lung field Lipid Panel 6 Months E03.9 - Hypothyroidism, unspecified, E78.5 - Hyperlipidemia, unspecified, J43.9 - Emphysema, unspecified, R91.8 - Other nonspecific abnormal finding of lung field IRON PROFILE Today D64.9 - Anemia, unspecified, E03.9 - Hypothyroidism, unspecified, E78.5 - Hyperlipidemia, unspecified, R06.02 - Shortness of breath Complete Blood Count Auto Diff Today D64.9 - Anemia, unspecified, E03.9 - Hypothyroidism, unspecified, E78.5 - Hyperlipidemia, unspecified, R06.02 - Shortness of breath Comprehensive [place]. Panel Fast 6 Months E03.9 - Hypothyroidism, unspecified, E78.5 - Hyperlipidemia, unspecified, J43.9 - Emphysema, unspecified, R91.8 - Other nonspecific abnormal finding of lung field TSH reflex Free T4 6 Months E03.9 - Hypothyroidism, unspecified, E78.5 - Hyperlipidemia, unspecified, J43.9 - Emphysema, unspecified, R91.8 - Other nonspecific abnormal finding of lung field Vitamin D 25-OH Total 6 Months E03.9 - Hypothyroidism, unspecified, E78.5 - Hyperlipidemia, unspecified, J43.9 - Emphysema, unspecified, R91.8 - Other nonspecific abnormal finding of lung field TSH reflex Free T4 Today D64.9 - Anemia, unspecified, E03.9 - Hypothyroidism, unspecified, E78.5 - Hyperlipidemia, unspecified, R06.02 - Shortness of breath Comprehensive [place]. Panel Fast Today D64.9 - Anemia, unspecified, E03.9 - Hypothyroidism, unspecified, E78.5 - Hyperlipidemia, unspecified, R06.02 - Shortness of breath Vitamin B12 and Folate Today D64.9 - Anemia, unspecified, E03.9 - Hypothyroidism, unspecified, E78.5 - Hyperlipidemia, unspecified, R06.02 - Shortness of breath Lipid Panel Today E78.5 - Hyperlipidemia, unspecified Referrals Gastroenterology Referral K22.89 - Other specified disease of esophagus Medications: New pravastatin 20 mg PO DAILY 90 tabs 3RF escitalopram oxalate 10 mg PO DAILY 90 tabs 3RF esomeprazole magnesium 40 mg PO DAILY 90 caps 3RF Changed From levothyroxine 88 mcg PO To levothyroxine 88 mcg PO .QD 90 tabs 3RF
== END 2024-04-06 11:47 | disposition home or self-care (01) ==
PROVIDERS: Visit Provider Internal Medicine
DX: Z00.00 Encounter for general adult medical examination without abnormal findings (principal); J43.9 Emphysema, unspecified; E03.9 Hypothyroidism, unspecified; R91.8 Other nonspecific abnormal finding of lung field; E78.5 Hyperlipidemia, unspecified; K22.89 Other specified disease of esophagus; R06.02 Shortness of breath; D64.9 Anemia, unspecified

== ENCOUNTER → 2024-04-06 10:14 | Outpatient (BNVA) | payer MEDICARE, SELFPAY | PROVIDERS: Visit Provider Internal Medicine | DX: E03.9 Hypothyroidism, unspecified (principal); J43.9 Emphysema, unspecified; R91.8 Other nonspecific abnormal finding of lung field; E78.5 Hyperlipidemia, unspecified; K22.89 Other specified disease of esophagus; R06.02 Shortness of breath; D64.9 Anemia, unspecified | CPT/HCPCS: 96127; 99387 ==

== ENCOUNTER 2024-04-07 08:13 | Outpatient (REF) | payer MEDICARE, SELFPAY ==
[2024-04-07 09:59] LABS: MANUAL DIFF FLAG NO
[2024-04-07 10:07] LABS: Basophils Absolute Auto 0.1 X10*3/uL (0.0-0.2); Basophils Percent Auto 1.3 % (0-2); Eosinophils Absolute Auto 0.2 X10*3/uL (0.0-0.4); Hematocrit 42.2 % (37.0-47.0); Hemoglobin 14.1 g/dl (12.0-16.0); Imm Gran Abs Auto 0.02 X10*3/uL (0.00-0.03); Imm Gran Pct Auto 0.4 % (0.0-0.4); Lymphocytes Absolute Auto 1.7 X10*3/uL (1.2-4.9); Lymphocytes Percent Auto 30.8 % (20-40); Mean Corpuscular HGB Conc 33.4 g/dl (31.0-35.0); Mean Corpuscular Hemoglobin 30.6 pg (27.0-33.0); Mean Corpuscular Volume 91.5 fL (80.0-98.0); Mean Platelet Volume 9.6 fL (9.4-12.3); Monocytes Absolute Auto 0.5 X10*3/uL (0.1-1.2); Monocytes Percent Auto 8.1 % (2-11); Neutrophils Absolute Auto 3.2 x10*3/uL (2.0-8.3); Neutrophils Percent Auto 56.4 % (45-73); Platelet Count 416 X10*3/uL (160-400); Red Blood Count 4.61 X10*6/uL (4.20-5.50); Red Cell Distribution Width 14.6 % (11.0-16.0); White Blood Count 5.6 X10*3/uL (4.8-10.8)
[2024-04-07 10:35] LABS: Alanine Aminotransferase 14 U/L (0-31); Albumin Level 4.4 g/dL (3.5-5.0); Alkaline Phosphatase 70 U/L (39-117); Anion Gap 11 (12-20); Aspartate Amino Transferase 25 U/L (5-31); Bilirubin Total 0.9 mg/dL (0.0-1.0); Blood Urea Nitrogen 13 mg/dL (9-16); Calcium 9.2 mg/dL (8.4-10.2); Carbon Dioxide 27 mmol/L (22-29); Chloride 107 mmol/L (96-108); Cholesterol 230 mg/dL (<200); Estimated Glomerular Filt Rate > 60; Glucose Fasting 107 mg/dL (60-99); HDL Cholesterol 84 mg/dL (>40); Iron 145 mcg/dL (30-160); LDL Cholesterol Calculated 125 mg/dL (<100); Percent Iron Saturation 51 % (15-50); Potassium 3.8 mmol/L (3.3-5.1); Sodium 141 mmol/L (135-145); Total Iron Binding Capacity 287 mcg/dL (228-428); Triglycerides 107 mg/dL (<150); Unsaturated Iron Binding 142 ug/dL
[2024-04-07 10:38] LABS: TSH reflex Free T4 6.49 uIU/mL (0.32-4.0)
[2024-04-07 11:01] LABS: Vitamin B12 543 pg/mL (200-900)
[2024-04-07 11:34] LABS: Free T4 (Free Thyroxine) 1.14 ng/dL (0.71-1.85)
== END 2024-04-07 08:14 | disposition home or self-care (01) ==
LOC: HO.HMGCLDS 08:13
PROVIDERS: PCP Internal Medicine; Visit Provider Internal Medicine
DX: D64.9 Anemia, unspecified (principal); E03.9 Hypothyroidism, unspecified; E78.5 Hyperlipidemia, unspecified; R06.02 Shortness of breath
CPT/HCPCS: 36415; 80053; 80061; 82607; 82746; 83540; 84439; 84443; 85025

== ENCOUNTER 2024-05-02 07:56 | Outpatient (REF) | payer MEDICARE, SELFPAY ==
--- NOTE | 2024-05-02 08:00 | PFT_ITS ---
Flows: FEV1: 121 % of predicted at 2.03 L FVC: 121 % of predicted at 2.67 L FEV1/FVC: 76 % Bronchodilator response: Absent Volumes: Total lung capacity: 102 % of predicted at 4.30 L Residual volume: 83 % of predicted at 1.58 L Slow vital capacity: 121 % of predicted at 2.72 L Expiratory reserve volume: 174 % of predicted at 0.92 L Diffusion capacity: Normal Impression: No obstructive or restrictive ventilatory defect. No bronchodilator response. Normal pulmonary function test. MTDD
== END 2024-05-02 07:57 | disposition home or self-care (01) ==
LOC: HO.RESP 07:56
PROVIDERS: PCP Internal Medicine; Visit Provider Nurse Practitioner Family
DX: R06.02 Shortness of breath (principal)
CPT/HCPCS: 94010; 94640; 94727; 94729

== ENCOUNTER 2024-05-08 09:55 | Outpatient (AMB) | payer MEDICARE, SELFPAY ==
--- NOTE | 2024-05-08 09:50 | MHC.OFFVIS ---
Vital Signs 05/08/24 10:03 Height 4 ft 11 in Weight 106 lb 2 oz BMI 21.4 BP 110/62 Blood Pressure Location Lt brachial Position Sitting Pulse 89 Pulse Source Pulse Oximeter Pulse Oximetry (%) 98 Oxygen Delivery Method Room Air Intake Visit Reasons: PFT/Shortness of Breath Allergies codeine [CODEINE] Allergy (Severe, Verified 05/08/24 10:05) HYPOTENSION morphine [MORPHINE] Allergy (Severe, Verified 05/08/24 10:05) hives,HYPOTENSION acetaminophen [Percocet] Allergy (Unknown, Verified 05/08/24 10:05) Vomiting oxycodone [From Percocet] Adverse Reaction (Mild, Verified 05/08/24 10:05) VOMITING morphine Allergy (Unknown, Uncoded 05/08/24 10:05) hives percocet Allergy (Unknown, Uncoded 05/08/24 10:05) vomiting HPI HPI PFT/Shortness of Breath: Details: Agnes is a pleasant 79 year old female, never smoker, with h/o Hodgkin's lymphoma s/p chest radiation 25+ years ago, h/o lung cancer s/p right upper lobectomy and hypothyroidism. Agnes continues to report dyspnea with exertion, denies cough, wheezing or chest tightness. She does note that dyspnea occurs with exertion, and shortly after resting symptoms resolve. She questions if anxiety is a contributing factor. She denies any visits to urgent care or hospitalizations related to respiratory distress. Today she prsents to review PFT results. [facility] Medical History Depression Hypothyroidism Lung cancer Hodgkin disease Surgical History History of back surgery S/P right rotator cuff repair Family History Mother No problems noted. Father Substance use disorder Father No problems noted. Brother Dementia Sister Dementia Social History Household Members Other:: 83 Housing: House Alcohol intake: current Alcohol intake frequency: holidays/special occasions only Alcohol type: wine Patient Tobacco Use Status: Never used Tobacco e-Cigarette/Vaping Use: Never Used service: No Current occupational status: retired Cognitive needs: No Hearing needs: Yes Vision needs: Yes Review of Systems Const Denies chills, Denies excessive sweating, Denies fever(s), Denies headache(s) and Denies night sweats Eyes Denies dry eyes, Denies irritation and Denies itchy eyes ENT Reports Normal hearing present, Denies headache(s), Denies nasal congestion, Denies nasal discharge and Denies sore throat Card Denies chest pain, Denies chest pain at rest, Denies chest pain with activity, Denies claudication, Denies leg edema, Denies orthopnea and Denies paroxysmal nocturnal dyspnea Resp Denies chest congestion, Denies cough, Denies excessive phlegm production, Denies pain on inspiration, Denies pain with cough, Denies stridor and Denies wheezing Musc Denies myalgias Neuro Reports Normal hearing present and Denies headache(s) Endo Denies excessive sweating Jayro/Lymph Denies lymphadenopathy Aller/Immun Denies itchy eyes, Denies seasonal rhinorrhea and Denies wheezing Physical Exam Vital Signs: Last Vital Signs Pulse 89 05/08/24 10:03 BP 110/62 05/08/24 10:03 Pulse Ox 98 05/08/24 10:03 Oxygen Delivery Method Room Air 05/08/24 10:03 BMI result Body Mass Index 21.4 Const General: cooperative, healthy appearing, comfortable, no acute distress, well developed and alert Orientation/consciousness: patient oriented x3 Limitations: no limitations HEENT Head: Yes normal to inspection, Yes normocephalic and Yes atraumatic Ears: hearing grossly normal bilaterally and external ears normal Mouth: moist mucous membranes abnormal (d/t prior radiation) Eyes General: appearance normal, both eyes and all related structures Eyelids: Yes eyelids normal Sclerae: sclerae normal EOM: EOMs intact bilaterally Neck Neck: Yes normal visual inspection and Yes no lymphadenopathy Lymphatic: no lymphadenopathy noted Chest Chest palpation & inspection: normal inspection of the chest Resp Effort & Inspection: normal respiratory effort, able to speak in complete sentences, no audible wheezes, no cough, no stridor, not tachypneic, no tripod positioning and no use of accessory muscles Auscultation: clear to auscultation bilaterally Cardio Jugular venous distension: no JVD Rate: regular rate Rhythm: regular rhythm Skin Other: warm, dry General skin exam: no rashes or lesions noted Neuro General: patient oriented x3 Cranial nerves: Yes Normal hearing present Cognition (Neuro): normal cognition Gait exam (Neuro): Normal gait present Extrem General: Yes normal to inspection, Yes capillary refill normal, Yes no clubbing, cyanosis or edema and Yes no pedal edema Psych Appearance: grossly normal and well kempt Speech and movement: Normal speech and movement present and Clear speech present Affect: normal affect Attitude: cooperative Thought process: Normal thought process present Thought content: Normal thought content present Insight: Good insight present (Psych) Judgement: Good judgement present (Psych) Assessment & Plan Assessment & Plan (1) Shortness of breath: Comment: negative nuclear stress test 09/2023 Code(s): R06.02 - Shortness of breath Category: Medical (2) History of lung cancer: Code(s): Z85.118 - Personal history of other malignant neoplasm of bronchus and lung Category: Medical (3) History of Hodgkin's lymphoma: Code(s): Z85.71 - Personal history of Hodgkin lymphoma Category: Medical (4) Status post radiation therapy: Code(s): Z92.3 - Personal history of irradiation Category: Medical (5) Emphysema of lung: Comment: Mild on CT of the chest 09/2023 Code(s): J43.9 - Emphysema, unspecified Category: Medical (6) Multiple pulmonary nodules: Comment: Chest CT 09/2023 S/P RUL lobectomy, small pul nodules, mild emphysema Code(s): R91.8 - Other nonspecific abnormal finding of lung field Category: Medical Plan Reviewed PFT which revealed no obstructive or restrictive ventilatory defect. No bronchodilator response, except in small to medium airways. Lung volumes and DLCO normal. Again offered to trial albuterol MDI however she declined. Prior Chest CT noted multiple pulmonary nodules <4 mm, order has been placed for repeat chest CT next spring to assess for stability. All questions were answered and patient is in agreement of plan. Will follow up to review results or sooner if needed. Coding Level of Care Code Est Pt Level 4 (00563) Diagnoses Shortness of breath R06.02 History of lung cancer Z85.118 History of Hodgkin's lymphoma Z85.71 Status post radiation therapy Z92.3 Emphysema of lung J43.9 Multiple pulmonary nodules R91.8
[2024-05-08 10:03] VITALS: BP 110/62; PULSE 89; O2SAT 98; BMI 21.4
== END 2024-05-08 10:29 | disposition home or self-care (01) ==
PROVIDERS: PCP Internal Medicine; Visit Provider Nurse Practitioner Family
DX: R06.02 Shortness of breath (principal); Z85.118 Personal history of other malignant neoplasm of bronchus and lung; Z85.71 Personal history of Hodgkin lymphoma; Z92.3 Personal history of irradiation; J43.9 Emphysema, unspecified; R91.8 Other nonspecific abnormal finding of lung field
CPT/HCPCS: 99214

== ENCOUNTER → 2024-05-08 09:55 | Outpatient (BNVA) | payer MEDICARE, SELFPAY | PROVIDERS: PCP Internal Medicine; Visit Provider Nurse Practitioner Family | DX: R06.02 Shortness of breath (principal); R91.8 Other nonspecific abnormal finding of lung field; J43.9 Emphysema, unspecified; Z85.118 Personal history of other malignant neoplasm of bronchus and lung; Z85.71 Personal history of Hodgkin lymphoma; Z92.3 Personal history of irradiation | CPT/HCPCS: 99212 ==

== ENCOUNTER 2024-06-05 10:26 | Outpatient (REF) | payer MEDICARE, SELFPAY ==
--- OUTSIDE RECORDS SUMMARY | 2024-06-05 10:44 | XMS_ITS ---
Author Organization [facility] Address [address] [place] [address] Care Team Providers Care Commercial Carpet Installer Name Role Phone Michelle Henderson NP Primary Care Provider Pineda Pena [phone] Encounters Encounter Location Date Provider Diagnosis [facility] [address] [place] [address] 09/27/2023 Pineda Simmons PLAN OF TREATMENT No Information
--- OUTSIDE RECORDS SUMMARY | 2024-06-05 10:44 | XMS_ITS | Patient Health Record ---
Author Organization [facility] Address [address] [place] [address] Care Team Providers Care Pig Iron Loader Name Role Phone Beatriz RECIO, Michelle Primary Care Provider Pineda Pena [phone] ALLERGIES Allergen (clinical drug ingredient) Drug/Non Drug Allergy documented on EMR Reaction Allergy Type Onset Date Status acetaminophen / oxycodone Percocet Unknown Drug Allergy Active ? Morphine (uncoded) Unknown Allergy Active REASON FOR REFERRAL No Information MEDICATIONS Medication SIG (Take, Route, Frequency, Duration) Notes Start Date End Date Status Colyte with Flavor Packs 240 GM As directed Orally once for 1 day(s) 05/30/2012 Active Synthroid 06/24/2023 06/24/2023 Active SOCIAL HISTORY Sex Assigned At : Social History Observation Description Sex Assigned At Unknown PROBLEMS Problem Type ICD Code Onset Dates Problem Status W/U Status Risk SNOMED Code Notes Problem Chronic constipation (564.00) Active confirmed Chronic constipation (296660883) Problem Colon cancer screening (V76.51) Active confirmed Colon cancer screening (140236684) Problem Abdominal pain, left lower quadrant (789.04) Active confirmed Left lower quadrant pain (513895800) Encounters Encounter Location Date Provider Diagnosis [facility] [address] [place] [address] 09/27/2023 Pineda Simmons PLAN OF TREATMENT Future Test Test Name Order Date COLONOSCOPY 05/30/2012 Insurance Providers Payer Name Payer Address Payer Phone Subscriber Number Group Number Insured Name Patient Relationship to Insured Coverage Start Date Coverage End Date [employer] [address] [facility] [place] [phone] [id number] KAELASHANNANSARAH Rdz Self - patient is the insured MEDICAL (GENERAL) HISTORY Medical History History ICD Code colonoscopy 05-19-2002-neg. constipation lung cancer-RUL Lobectomy wi th chemo in 2006, and recurrence in RML in 2007-being observed Hodgkin's disease--XRT Denies SC,DM,CVA,Lung disease,renal dise ase Hypothyroidism Surgical History Surgery Date(Month/Year) right upper lobe lobectomy as above laparotomy with splenectomy for the Hodg kin's disease hysterectomy with BSO carpal tunnel and wrist surgery
[2024-06-05 14:52] LABS: Free T4 (Free Thyroxine) 1.21 ng/dL (0.71-1.85)
== END 2024-06-05 10:27 | disposition home or self-care (01) ==
LOC: HO.HMGCLDS 10:26
PROVIDERS: PCP Internal Medicine; Visit Provider Internal Medicine
DX: E03.9 Hypothyroidism, unspecified (principal)
CPT/HCPCS: 36415; 84439; 84443

== ENCOUNTER 2024-07-22 10:46 | Outpatient (AMB) | payer MEDICARE, SELFPAY ==
--- NOTE | 2024-07-22 10:46 | MHC.OFFVIS ---
Intake Visit Reasons: Na PT, GES results Intake Note: Agnes presents as a telehealth to go over GES results. CC: she states she has issues with her swallowing and she was told she has a hiatal hernia but she has had this forever. She states that there was a spot seen that there is raising concerns and that is why she has this appt today. Professional Security Officer Required: No Allergies codeine [CODEINE] Allergy (Severe, Verified 07/22/24 10:47) HYPOTENSION morphine [MORPHINE] Allergy (Severe, Verified 07/22/24 10:47) hives,HYPOTENSION acetaminophen [Percocet] Allergy (Unknown, Verified 07/22/24 10:47) Vomiting oxycodone [From Percocet] Adverse Reaction (Mild, Verified 07/22/24 10:47) VOMITING morphine Allergy (Unknown, Uncoded 07/22/24 10:47) hives percocet Allergy (Unknown, Uncoded 07/22/24 10:47) vomiting HPI Comments Details: 79 y.o F with PMH of hodgkins lymphoma s/p XRT, hx of lung ca s/p lobectomy, Here for barium swallow results. Has dysphagia to solids that started almost a year ago - intermittent. Occ heartburn and regurg which gets better with PPI. Also has regurg when incumbent. Reports some weight loss almost 3 years ago after R shoulder surgery. Unsure if had any recent weight loss. No N/V. Last colo 2011 Dr Simmons. 1. Trace tracheal penetration with thick barium. No subglottic aspiration. 2. There is mild posterior indentation of the cervical esophagus at the level C5-C6 due to a small bridging anterior osteophyte. This is unlikely contributing to the patient's symptoms. 3. Granular appearance of the esophageal mucosa which suggests esophagitis. Oval filling defect in the proximal one third of the esophagus could represent a subtle mucosal mass or ulceration. 4. Moderate esophageal dysmotility. 5. Small type I hiatal hernia with severe gastroesophageal reflux. Numerous small filling defects in the hiatus hernia and fundus of the stomach suggests hyperplastic polyps. 6. Limited evaluation of the gastric mucosal folds due to lack of distention of the stomach from poor retention of the effervescent granules. The gastric rugal folds have a thickened appearance which suggests gastritis. FOR[facility]LY [facility], [facility] Medical History Depression Hypothyroidism Lung cancer Hodgkin disease Surgical History History of back surgery S/P right rotator cuff repair Family History Mother No problems noted. Father Substance use disorder Father No problems noted. Brother Dementia Sister Dementia Social History Household Members Other:: 83 Housing: House Alcohol intake: current Alcohol intake frequency: holidays/special occasions only Alcohol type: wine Patient Tobacco Use Status: Never used Tobacco e-Cigarette/Vaping Use: Never Used service: No Current occupational status: retired Cognitive needs: No Hearing needs: Yes Vision needs: Yes Review of Systems Const All systems reviewed & are unremarkable except as noted in HPI and below Physical Exam Vital Signs: phone visit Telehealth Telehealth Telehealth Platform: Telephone Location of provider rendering services: practice address Location of patient: address on file Patient Identification confirmed using: Name, : Yes Telehealth method: voice only Patient verbally consented to treatment: Yes Patient verbally consented to billing insurance company: Yes Patient informed of any privacy concerns related to visit: Yes Minutes spent on Phone/Video with Pt.: 15 Assessment & Plan Assessment & Plan (1) Mass of esophagus: Code(s): K22.89 - Other specified disease of esophagus Category: Medical (2) Dysphagia: Code(s): R13.10 - Dysphagia, unspecified Category: Medical Plan Reviewed findings of the barium swallow with the patient that shows findings consistent with reflux and likely erosive esophagitis. However, also shows a nodularity in the upper 3rd esophagus which needs direct visualization. No obvious stricture noted in the esophagus on the barium swallow, but question if the nodule is contributing to the dysphagia. Plan: -EGD with possible dilation to be booked. -patient has already been started on PPI by the PCP -follow-up after the EGD Coding Level of Care Code Tele New Pt Level 4 (70119) Diagnoses Mass of esophagus K22.89 Dysphagia R13.10
--- OUTSIDE RECORDS SUMMARY | 2024-07-22 12:52 | XMS_ITS ---
Author Organization [facility] Address [address] [place] [address] Care Team Providers Care Grinder Operator Automatic Name Role Phone Michelle Henderson NP Primary Care Provider Pineda Pena [phone] Encounters Encounter Location Date Provider Diagnosis [facility] [address] [place] [address] 09/27/2023 Pineda Simmons PLAN OF TREATMENT No Information
--- OUTSIDE RECORDS SUMMARY | 2024-07-22 12:53 | XMS_ITS | Patient Health Record ---
Author Organization [facility] Address [address] [place] [address] Care Team Providers Care Unarmed Security Officer Name Role Phone Beatriz RECIO, Michelle Primary Care Provider Pineda Pena [phone] ALLERGIES Allergen (clinical drug ingredient) Drug/Non Drug [...] once for 1 day(s) 05/30/2012 Active Synthroid 06/24/2024 06/24/2024 Active SOCIAL HISTORY Sex Assigned At : Social History Observation Description Sex Assigned At Unknown PROBLEMS Problem Type ICD Code Onset Dates Problem Status W/U Status Risk SNOMED Code Notes Problem Chronic constipation (564.00) Active confirmed Chronic constipation (764984738) Problem Colon cancer screening (V76.51) Active confirmed Colon cancer screening (413231484) Problem Abdominal pain, left lower quadrant (789.04) Active confirmed Left lower quadrant pain (498703867) Encounters Encounter Location Date Provider Diagnosis [facility] [address] [place] [address] 09/27/2023 Pineda Simmons PLAN OF TREATMENT Future Test Test Name Order Date COLONOSCOPY 05/30/2012 Insurance Providers Payer Name Payer Address Payer Phone Subscriber Number Group Number Insured Name Patient Relationship to Insured Coverage Start Date Coverage End Date Aetna [address] [facility] [place] [address] [id number] KAELASHANNANSARAH Rdz Self - patient is the insured MEDICAL (GENERAL) HISTORY Medical History History ICD Code colonoscopy 05-19-2002-neg. constipation lung cancer-RUL Lobectomy wi th chemo in 2006, and recurrence in RML in 2007-being observed Hodgkin's disease--XRT Denies [place],DM,CVA,Lung disease,renal dise ase Hypothyroidism Surgical History Surgery Date(Month/Year) right upper lobe lobectomy as above laparotomy with splenectomy for the Hodg kin's disease hysterectomy with BSO carpal tunnel and wrist surgery
== END 2024-07-22 11:19 | disposition home or self-care (01) ==
LOC: HO.HGI 10:46
PROVIDERS: PCP Internal Medicine; Visit Provider Internal Medicine
DX: K22.89 Other specified disease of esophagus (principal); R13.10 Dysphagia, unspecified
CPT/HCPCS: 99214

== ENCOUNTER → 2024-07-22 10:46 | Outpatient (BNVA) | payer MEDICARE, SELFPAY | PROVIDERS: PCP Internal Medicine; Visit Provider Internal Medicine ==

== ENCOUNTER 2024-08-03 12:10 | Outpatient (REF) | payer MEDICARE, SELFPAY ==
--- OUTSIDE RECORDS SUMMARY | 2024-08-03 13:17 | XMS_ITS | Patient Health Record ---
Author Organization [facility] Address [address] [place] [address] Care Team Providers Care Mine Production Engineer Name Role Phone Beatriz RECIO, Michelle Primary Care Provider Pineda Pena [phone] ALLERGIES Allergen (clinical drug ingredient) Drug/Non Drug [...] Chronic constipation (564.00) Active confirmed Chronic constipation (947432847) Problem Colon cancer screening (V76.51) Active confirmed Colon cancer screening (575005293) Problem Abdominal pain, left lower quadrant (789.04) Active confirmed Left lower quadrant pain (429515492) Encounters Encounter Location Date Provider Diagnosis [facility] [address] [place] [address] 09/27/2023 Pineda Simmons PLAN OF TREATMENT Future Test Test Name Order Date COLONOSCOPY 05/30/2012 Insurance Providers Payer Name Payer Address Payer Phone Subscriber Number Group Number Insured Name Patient Relationship to Insured Coverage Start Date Coverage End Date Aetna [address] [facility] [place] [address] [id number] KAELASHANNANSARAH Rdz Self - patient is the insured MEDICAL (GENERAL) HISTORY Medical History History ICD Code colonoscopy 05-19-2002-neg. constipation lung cancer-RUL Lobectomy wi th chemo in 2006, and recurrence in RML in 2007-being observed Hodgkin's disease--XRT Denies [place],DM,CVA,Lung disease,renal dise ase Hypothyroidism Surgical History Surgery Date(Month/Year) right upper lobe lobectomy as above laparotomy with splenectomy for the Hodg kin's disease hysterectomy with BSO carpal tunnel and wrist surgery
--- OUTSIDE RECORDS SUMMARY | 2024-08-03 13:17 | XMS_ITS ---
Author Organization [facility] Address [address] [place] [address] Care Team Providers Care Scrap Metal Collector Name Role Phone Michelle Henderson NP Primary Care Provider Pineda Pena [phone] Encounters Encounter Location Date Provider Diagnosis [facility] [address] [place] [address] 09/27/2023 Pineda Simmons PLAN OF TREATMENT No Information
[2024-08-03 14:23] LABS: TSH reflex Free T4 0.82 uIU/mL (0.32-4.0)
== END 2024-08-03 12:11 | disposition home or self-care (01) ==
LOC: HO.HMGCLDS 12:10
PROVIDERS: PCP Internal Medicine; Visit Provider Internal Medicine
DX: E03.9 Hypothyroidism, unspecified (principal)
CPT/HCPCS: 36415; 84443

== ENCOUNTER 2024-09-02 09:30 | Outpatient (REF) | payer MEDICARE, SELFPAY ==
--- NOTE | ~2024-09-02 | CT_ITS ---
CLINICAL HISTORY: R91.8 - Other nonspecific abnormal finding of lung field CT chest without IV contrast. COMPARISON: CT chest dated 08/29/23 at 09:34 EST FINDINGS: Diminutive thyroid gland. No supraclavicular or axillary lymphadenopathy. Aortic and mitral annular calcifications. No pericardial effusion. Normal esophagus. Multiple calcified mediastinal lymph nodes. Postsurgical changes of right upper lobectomy. No pleural effusion. No consolidation. Trachea and central airways are clear. No significant bronchial wall thickening. No bronchiectasis. Calcified granulomas present within the right lower lobe. Left upper lobe 3 mm pulmonary nodule (series 4, image 29), stable. Left lower lobe 2 mm pulmonary micronodule (series 4, image 86), stable. Right middle lobe 3 mm pulmonary nodule (series 4, image 80), stable. Right middle lobe 3 mm pulmonary nodule (series 4, image 25), stable. Visualized portions of the upper abdomen are unremarkable. Anterior wedge compression fracture of the T12 vertebral body with approximately 25 percent height loss, new since prior imaging. No retropulsion into the canal. There is increased thoracic kyphosis at this level. Right shoulder arthroplasty partially visualized. Chronic healed posterior right rib fractures. IMPRESSION: 1. Status post right upper lobectomy with the evidence of residual versus recurrent disease. 2. Stable appearance of bilateral 2-3 mm pulmonary nodules. 3. Age-indeterminate anterior wedge compression fracture of the T12 vertebral body with approximately 25 percent height loss. This is new since imaging dated 08/29/2023. No retropulsion into the canal. This document has been electronically signed by: Je Nix MD on 09/02/2024 15:19:04
--- OUTSIDE RECORDS SUMMARY | 2024-09-02 10:23 | XMS_ITS ---
Author Organization [facility] Address [address] [place] [address] Care Team Providers Care Director Of Conservation Name Role Phone Michelle Henderson NP Primary Care Provider Pineda Pena [phone] Encounters Encounter Location Date Provider Diagnosis [facility] [address] [place] [address] 09/27/2023 Pineda Simmons Plan Of Treatment No Information Progress Notes * BLANE MARIN:[birth year] (78 yo F)Acc No.[id number]:09/27/2023 Patient:?SARAH MARIN :1945???Age:78 Y???Sex:Female Address:[address] [facility] [place] [address] * true * Date:? Generated for Neema campos/Daniela/eTransmitting on:?09/02/2024 10:23 AM EDT
--- OUTSIDE RECORDS SUMMARY | 2024-09-02 10:24 | XMS_ITS | Patient Health Record ---
Author Organization [facility] Address [address] [place] [address] Care Team Providers Care Graphic Design Specialist Name Role Phone Beatriz RECIO, Michelle Primary Care Provider Pineda Pena [phone] Allergies Allergen (clinical drug ingredient) Drug/Non Drug Allergy documented on EMR Reaction Allergy Type Onset Date Status acetaminophen / oxycodone Percocet Unknown Drug Allergy Active ? Morphine (uncoded) Unknown Allergy Active Reason For Referral No Information Medications Medication SIG (Take, Route, Frequency, Duration) Notes Start Date End Date Status Colyte with Flavor Packs 240 GM As directed Orally once for 1 day(s) 05/30/2012 Active Synthroid 06/24/2024 06/24/2024 Active Problems Problem Type SNOMED Code ICD Code Onset Dates Problem Status W/U Status Risk Notes Problem Left lower quadrant pain (723286713) Abdominal pain, left lower quadrant (789.04) Active confirmed Problem Colon cancer screening (867314679) Colon cancer screening (V76.51) Active confirmed Problem Chronic constipation (427171039) Chronic constipation (564.00) Active confirmed Encounters Encounter Location Date Provider Diagnosis [facility] [address] [place] [address] 09/27/2023 Pineda Simmons Plan Of Treatment Future Test Test Name Order Date COLONOSCOPY 05/30/2012 Insurance Providers Payer Name Payer Address Payer Phone Subscriber Number Group Number Insured Name Patient Relationship to Insured Coverage Start Date Coverage End Date Aetna [address] [address] [id number] SARAH RAYO Self - patient is the insured Medical (General) History Medical History History ICD Code colonoscopy 05-19-2002-neg. constipation lung cancer-RUL Lobectomy wi th chemo in 2006, and recurrence in RML in 2007-being observed Hodgkin's disease--XRT Denies ID,DM,CVA,Lung disease,renal dise ase Hypothyroidism Surgical History Surgery Date(Month/Year) right upper lobe lobectomy as above laparotomy with splenectomy for the Hodg kin's disease hysterectomy with BSO carpal tunnel and wrist surgery
== END 2024-09-02 09:31 | disposition home or self-care (01) ==
LOC: HO.CT 09:30
PROVIDERS: PCP Internal Medicine; Visit Provider Nurse Practitioner Family
DX: R91.8 Other nonspecific abnormal finding of lung field (principal); Z85.118 Personal history of other malignant neoplasm of bronchus and lung
CPT/HCPCS: 71250

== ENCOUNTER → 2024-09-02 09:33 | Outpatient (BNV) | payer MEDICARE, SELFPAY | PROVIDERS: PCP Internal Medicine; Visit Provider Radiology Diagnostic Radiology | DX: R91.8 Other nonspecific abnormal finding of lung field (principal) | CPT/HCPCS: 71250 ==

== ENCOUNTER 2024-09-25 08:25 | Outpatient (REF) | payer MEDICARE, SELFPAY ==
--- OUTSIDE RECORDS SUMMARY | 2024-09-25 08:43 | XMS_ITS ---
Author Organization [facility] Address [address] [place] [address] Care Team Providers Care Warehouse Material Handler Name Role Phone Michelle Henderson NP Primary Care Provider Pineda Pena [phone] Encounters Encounter Location Date Provider Diagnosis [facility] [address] [place] [address] 09/27/2023 Pineda Simmons Plan Of Treatment No Information Progress Notes * MICHAEL MARINOB:[birth year] (78 yo F)Acc No.[id number]:09/27/2023 Patient:?SARAH MARIN :1945???Age:78 Y???Sex:Female Address:[address] [place] [address] * true * Date:? Generated for Neema campos/Daniela/eTransmitting on:?09/25/2024 08:42 AM EDT
--- OUTSIDE RECORDS SUMMARY | 2024-09-25 08:43 | XMS_ITS | Patient Health Record ---
Author Organization [facility] Address [address] [place] [address] Care Team Providers Care Consulting Solution Director Name Role Phone Beatriz RECIO, Michelle Primary Care Provider Pineda Pena [phone] Allergies Allergen (clinical drug ingredient) Drug/Non Drug [...] Risk Notes Problem Left lower quadrant pain (627361934) Abdominal pain, left lower quadrant (789.04) Active confirmed Problem Colon cancer screening (399314904) Colon cancer screening (V76.51) Active confirmed Problem Chronic constipation (019789309) Chronic constipation (564.00) Active confirmed Encounters Encounter Location Date Provider Diagnosis [facility] [address] [place] [address] 09/27/2023 Pineda Simmons Plan Of Treatment Future Test Test Name Order Date COLONOSCOPY 05/30/2012 Insurance Providers Payer Name Payer Address Payer Phone Subscriber Number Group Number Insured Name Patient Relationship to Insured Coverage Start Date Coverage End Date Aetna [address] [place] [address] [id number] SARAH RAYO Self - patient is the insured Medical (General) History Medical History History ICD Code colonoscopy 05-19-2002-neg. constipation lung cancer-RUL Lobectomy wi th chemo in 2006, and recurrence in RML in 2007-being observed Hodgkin's disease--XRT Denies [place],DM,CVA,Lung disease,renal dise ase Hypothyroidism Surgical History Surgery Date(Month/Year) right upper lobe lobectomy as above laparotomy with splenectomy for the Hodg kin's disease hysterectomy with BSO carpal tunnel and wrist surgery
== END 2024-09-25 08:26 | disposition home or self-care (01) ==
LOC: HO.SH 08:25
PROVIDERS: Visit Provider Internal Medicine
DX: Z01.118 Encounter for examination of ears and hearing with other abnormal findings (principal); H90.3 Sensorineural hearing loss, bilateral
CPT/HCPCS: 92552; 92556

== ENCOUNTER 2024-09-25 09:23 | Outpatient (REF) | payer SELFPAY | END 2024-09-25 09:24 | disposition home or self-care (01) | LOC: HO.HAP 09:23 | PROVIDERS: Visit Provider Internal Medicine | DX: Z46.1 Encounter for fitting and adjustment of hearing aid (principal); H90.3 Sensorineural hearing loss, bilateral | CPT/HCPCS: 92593 ==

== ENCOUNTER 2024-10-05 08:12 | Outpatient (REF) | payer MEDICARE, SELFPAY ==
--- OUTSIDE RECORDS SUMMARY | 2024-10-05 08:35 | XMS_ITS ---
Author Organization [facility] Address [address] [place] [address] Care Team Providers Care Tennis Instructor Name Role Phone Michelle Henderson NP Primary Care Provider Pineda Pena [phone] Encounters Encounter Location Date Provider Diagnosis [facility] [address] [place] [address] 09/27/2023 Pineda Simmons Plan Of Treatment No Information Progress Notes * MICHAEL MARINOB:[birth year] (78 yo F)Acc No.[id number]:09/27/2023 Patient:?SARAH MARIN :1945???Age:78 Y???Sex:Female Address:[address] [facility] [place] [address] * true * Date:? Generated for Neema campos/Daniela/eTransmitting on:?10/05/2024 08:34 AM EDT
--- OUTSIDE RECORDS SUMMARY | 2024-10-05 08:35 | XMS_ITS | Patient Health Record ---
Author Organization [facility] Address [address] [place] [address] Care Team Providers Care Sushi Chef Name Role Phone Beatriz RECIO, Michelle Primary Care Provider Pineda Pena [phone] Allergies Allergen (clinical drug ingredient) Drug/Non Drug [...] Risk Notes Problem Left lower quadrant pain (485102427) Abdominal pain, left lower quadrant (789.04) Active confirmed Problem Colon cancer screening (137427461) Colon cancer screening (V76.51) Active confirmed Problem Chronic constipation (663335358) Chronic constipation (564.00) Active confirmed Plan Of Treatment Future Test Test Name Order Date COLONOSCOPY 05/30/2012 Insurance Providers Payer Name Payer Address Payer Phone Subscriber Number Group Number Insured Name Patient Relationship to Insured Coverage Start Date Coverage End Date Aetna [address] [place] [address] [id number] SARAH RAYO Self - patient is the insured Medical (General) History Medical History History ICD Code colonoscopy 05-19-2002-neg. constipation lung cancer-RUL Lobectomy chemo in 2006, and recurrence in RML in 2008-being observed Hodgkin's disease--XRT Denies [place],DM,CVA,Lung disease,renal dise ase Hypothyroidism Surgical History Surgery Date(Month/Year) right upper lobe lobectomy as above laparotomy with splenectomy for the Hodg kin's disease hysterectomy with BSO carpal tunnel and wrist surgery
[2024-10-05 10:50] LABS: MANUAL DIFF FLAG NO
[2024-10-05 10:54] LABS: Basophils Percent Auto 0.9 % (0-2); Eosinophils Absolute Auto 0.1 X10*3/uL (0.0-0.4); Eosinophils Percent Auto 2.6 % (0-4); Hematocrit 40.5 % (37.0-47.0); Hemoglobin 13.5 g/dl (12.0-16.0); Imm Gran Abs Auto 0.01 X10*3/uL (0.00-0.03); Imm Gran Pct Auto 0.2 % (0.0-0.4); Lymphocytes Absolute Auto 1.5 X10*3/uL (1.2-4.9); Lymphocytes Percent Auto 34.3 % (20-40); Mean Corpuscular HGB Conc 33.3 g/dl (31.0-35.0); Mean Corpuscular Hemoglobin 30.5 pg (27.0-33.0); Mean Corpuscular Volume 91.6 fL (80.0-98.0); Mean Platelet Volume 9.9 fL (9.4-12.3); Monocytes Absolute Auto 0.4 X10*3/uL (0.1-1.2); Monocytes Percent Auto 8.2 % (2-11); Neutrophils Absolute Auto 2.3 x10*3/uL (2.0-8.3); Neutrophils Percent Auto 53.8 % (45-73); Platelet Count 398 X10*3/uL (160-400); Red Blood Count 4.42 X10*6/uL (4.20-5.50); Red Cell Distribution Width 14.7 % (11.0-16.0); White Blood Count 4.3 X10*3/uL (4.8-10.8)
[2024-10-05 11:48] LABS: Alanine Aminotransferase 20 U/L (0-31); Albumin Level 4.1 g/dL (3.5-5.0); Alkaline Phosphatase 64 U/L (39-117); Anion Gap 10 (12-20); Aspartate Amino Transferase 31 U/L (5-31); Bilirubin Total 0.5 mg/dL (0.0-1.0); Blood Urea Nitrogen 16 mg/dL (9-16); Calcium 8.9 mg/dL (8.4-10.2); Carbon Dioxide 27 mmol/L (22-29); Chloride 108 mmol/L (96-108); Cholesterol 188 mg/dL (<200); Estimated Glomerular Filt Rate > 60; Glucose Fasting 92 mg/dL (60-99); HDL Cholesterol 69 mg/dL (>40); LDL Cholesterol Calculated 105 mg/dL (<100); Potassium 4.2 mmol/L (3.3-5.1); Sodium 141 mmol/L (135-145); Total Protein 6.5 g/dL (6.5-8.0); Triglycerides 73 mg/dL (<150)
[2024-10-05 11:51] LABS: TSH reflex Free T4 0.32 uIU/mL (0.32-4.0); Vitamin D 25-OH Total 71.8 ng/mL (>30)
== END 2024-10-05 08:13 | disposition home or self-care (01) ==
LOC: HO.HMGCLDS 08:12
PROVIDERS: PCP Internal Medicine; Visit Provider Internal Medicine
DX: J43.9 Emphysema, unspecified (principal); R91.8 Other nonspecific abnormal finding of lung field; E03.9 Hypothyroidism, unspecified; E78.5 Hyperlipidemia, unspecified
CPT/HCPCS: 36415; 80053; 80061; 82306; 84443; 85025

== ENCOUNTER 2024-10-06 09:13 | Outpatient (AMB) | payer MEDICARE, SELFPAY ==
[2024-10-06 09:14] VITALS: BP 108/60; PULSE 99; RESP 18; TEMP 36.7; O2SAT 98; BMI 19.7
--- NOTE | 2024-10-06 09:14 | A.OFFPC_ITS ---
Vital Signs 10/06/24 09:14 Height 4 ft 11 in Weight 97 lb 5 oz BMI 19.7 BP 108/60 Blood Pressure Location Rt brachial Position Sitting Respiration 18 Pulse 99 Pulse Source Pulse Oximeter Temp 98.1 F Temp Source Oral Pulse Oximetry (%) 98 Oxygen Delivery Method Room Air Intake Visit Reasons: 6 months f/up Intake Note: Pt is here today for 6 months follow up visit. Allergies codeine [CODEINE] Allergy (Severe, Verified 10/06/24 14:01) HYPOTENSION morphine [MORPHINE] Allergy (Severe, Verified 10/06/24 14:01) hives,HYPOTENSION acetaminophen [Percocet] Allergy (Unknown, Verified 10/06/24 14:01) Vomiting oxycodone [From Percocet] Adverse Reaction (Mild, Verified 10/06/24 14:01) VOMITING morphine Allergy (Unknown, Uncoded 10/06/24 14:01) hives percocet Allergy (Unknown, Uncoded 10/06/24 14:01) vomiting Medication List - Last Reconciled 10/06/24 by Ida Carpenter MD escitalopram oxalate 10 mg PO DAILY esomeprazole magnesium 40 mg PO DAILY levothyroxine Take 1-1/2 tablet one day a week and 1 tablet daily for the rest of the week orally ; Myrbetriq ER (mirabegron) 25 mg PO DAILY NS pravastatin 20 mg PO DAILY Tobacco use date assessed: 10/06/24 Fall risk assessment: 2 + Falls in past year Last assessed Fall Risk: 10/06/24 Dental Screening Dental Screen Date: 10/06/24 Did you have a dental visit in the last 12 months?: Yes Did you have a dental problem in the last 6 months where you did not have access to dental care?: No Was dental information given to patient?: Patient has dentist HPI 6 months f/up HPI Details Pt presents for f/u hypothyroid, hyperlipid, GERD, stable on meds. Patient complains of chronic for extremity generalized muscle weakness and dyspnea on exertion for the last 3 years. Patient had extensive workup including negative stress test. Patient is established with pulmonology for history of lung CA and lobectomy and getting annual CT of the chest to monitor multiple lung nodules unchanged. [facility] Medical History (Updated 10/06/24 @ 16:06 by Ida Carpenter MD) Depression Hypothyroidism Lung cancer Hodgkin disease Surgical History History of back surgery S/P right rotator cuff repair Family History Mother No problems noted. Father Substance use disorder Father No problems noted. Brother Dementia Sister Dementia Social History Household Members Other:: 83 Housing: House Alcohol intake: current Alcohol intake frequency: holidays/special occasions only Alcohol type: wine Patient Tobacco Use Status: Never used Tobacco e-Cigarette/Vaping Use: Never Used service: No Current occupational status: retired Cognitive needs: No Hearing needs: Yes Vision needs: Yes Questionnaire PHQ-9 Over the last 2 weeks, how often have you been bothered by any of the following problems? 1. Little interest or pleasure in doing things: not at all 2. Feeling down, depressed, or hopeless: not at all 3. Trouble falling or staying asleep, or sleeping too much: not at all 4. Feeling tired or having little energy: not at all 5. Poor appetite or overeating: not at all 6. Feeling bad about yourself - or that you are a failure or have let yourself or your family down: not at all 7. Trouble concentrating on things, such as reading the newspaper or watching television: not at all 8. Moving or speaking so slowly that other people could have noticed. Or the opposite - being so fidgety or restless that you have been moving around a lot more than usual: not at all 9. Thoughts that you would be better off or of hurting yourself in some way: not at all Total score: 0 Depression Screening Interpretation: Negative Depression Screening Done: Yes 61025 - PHQ-9 Billing: Yes Source: Developed by Drs. Pineda Narayanan, Guillermina Hernandez, Spenser Meneses and colleagues, with an educational ana from [employer]. Thrive Questionnaire Date Thrive assessed: 10/06/24 I am a: Patient What is your living situation today?: I have a steady place to live Within the past 12 months, did the food you bought not last and you didn't have the money to get more?: Never true Within the past 12 months, did you worry whether your food would run out before you got money to buy more?: Never true Do you have trouble paying for medicines?: No Do you have trouble getting transportation to medical appointments?: No Do you have trouble paying your heating and electricity bill?: No Do you have trouble taking care of your child, family member or friend?: No Do you have trouble with day-to-day activities such as bathing, preparing meals, shopping, managing finances, etc.?: No Are you currently unemployed and looking for a job?: No Are you interested in more education?: No Please select the resources that you would like help with: None THRIVE Score: 0 AUDIT C Alcohol Use Questionnaire (AUDIT-C) 1. How often do you have a drink containing alcohol?: Monthly or less 2. How many drinks containing alcohol do you have on a typical day when you are drinking?: 1 or 2 3. How often do you have six or more drinks on one occasion?: Never Total Score: 1 BRODERICK-7 AMB Questionnaire BRODERICK-7 Date BRODERICK - 7 assessed: 10/06/24 Feeling nervous, anxious, or on edge: 0 = Not at all Not being able to stop or control worryin = Not at all Worrying too much about different things: 0 = Not at all Trouble relaxin = Not at all Being so restless that it is hard to sit still: 0 = Not at all Becoming easily annoyed or irritable: 0 = Not at all Feeling afraid as if something awful might happen: 0 = Not at all Total BRODERICK-7 score (0-4 normal; 5-9 mild; 10-14 moderate; 15-21 severe): 0 Source: Developed by Drs. Pineda Narayanan, Guillermina Hernandez, Spenser Meneses and colleagues, with an educational ana from [employer]. BRODERICK-7 Assessment Billing BRODERICK-7 Assessment Tool: BRODERICK-7 Assessment 17379 Review of Systems Eyes Reports no additional complaints ENT Reports no additional complaints Card Reports no additional complaints Resp Reports no additional complaints GI Reports no additional complaints Reports no additional complaints Physical exam (Primary Care) Vital Signs: Last Vital Signs Temp 98.1 F 10/06/24 09:14 Pulse 99 10/06/24 09:14 Resp 18 10/06/24 09:14 BP 108/60 10/06/24 09:14 Pulse Ox 98 10/06/24 09:14 Oxygen Delivery Method Room Air 10/06/24 09:14 BMI result Body Mass Index 19.7 Tobacco/Smoking Status: Tobacco use Status Tobacco use date assessed 10/06/24 10/06/24 09:22 Patient Tobacco Use Status Never used Tobacco 10/06/24 09:22 e-Cigarette/Vaping Use Never Used 10/06/24 09:22 PHQ-9: PHQ-9 Score PHQ-9: Total score 0 10/06/24 09:45 Depression Screening Interpretation: Negative Thrive Assessment: Date of Thrive Assessment Date Thrive assessed 10/06/24 10/06/24 09:22 Const General: no acute distress HENMT Head: Yes normal to inspection Ears: hearing grossly normal bilaterally Throat: Yes posterior oropharynx normal Eyes General: appearance normal, both eyes and all related structures Resp Effort & Inspection: normal respiratory effort Auscultation: clear to auscultation bilaterally Cardio Rhythm: regular rhythm Heart sounds: S1 normal heart sound present and S2 normal heart sound present GI Inspection: Yes normal to inspection Palpation (GI): Soft to palpation Percussion: Yes normal to percussion Auscultation: normal bowel sounds Neuro Other: The 4 extremities proximal and distal muscle weakness, 4 over 5 with diffuse muscle atrophy Cranial nerves: Yes CN's II-XII intact bilaterally Gait exam (Neuro): Normal gait present Deep tendon reflexes (DTR's): Right triceps reflex intensity grade: 1+, Left triceps reflex intensity grade: 1+, Rt Biceps (C5, C6): 1+, Left biceps reflex intensity grade: 1+, Right brachioradialis reflex intensity grade: 1+, Right patellar reflex intensity grade: 1+, Left patellar reflex intensity grade: 1+, Right ankle reflex intensity grade: 1+ and Left ankle reflex intensity grade: 1+ Coding Level of Care Code Est Pt Level 4 (89099) Diagnoses Muscle weakness of all 4 extremities M62.81 Hypothyroidism E03.9 Hyperlipidemia E78.5 Mass of esophagus K22.89 Multiple pulmonary nodules R91.8 Additional Codes BRODERICK-7 Assessment Billing - BRODERICK-7 Assessment Tool: BRODERICK-7 Assessment 16884 ([id number]) PHQ-9 - 25743 - PHQ-9 Billing: Yes ([id number]) Assessment & Plan Assessment & Plan (1) Muscle weakness of all 4 extremities: Comment: EMG 02/2024 [facility] mild right medial mononeuropathy at the wrist consistent with carpal tunnel syndrome, mild right ulnar axonal sensory neuropathy, no nerve conduction 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 Bran Code(s): K22.89 - Other specified disease of esophagus Category: Medical Plan: Patient is waiting for an appointment for EGD to evaluate for abnormal barium swallow, continue PPI and eating soft small pieces diet (5) Multiple pulmonary nodules: Comment: Chest CT 09/2023 S/P RUL lobectomy, small pul nodules, mild emphysema Code(s): R91.8 - Other nonspecific abnormal finding of lung field Category: Medical Plan: Established with pulmonology getting annual CT Orders: Orders Comprehensive [place]. Panel Fast 6 Months E03.9 - Hypothyroidism, unspecified, E78.5 - Hyperlipidemia, unspecified, K22.89 - Other specified disease of esophagus Complete Blood Count Auto Diff 6 Months E03.9 - Hypothyroidism, unspecified, E78.5 - Hyperlipidemia, unspecified, K22.89 - Other specified disease of esophagus Lipid Panel 6 Months E03.9 - Hypothyroidism, unspecified, E78.5 - Hyperlipidemia, unspecified, K22.89 - Other specified disease of esophagus TSH reflex Free T4 6 Months E03.9 - Hypothyroidism, unspecified, E78.5 - Hyperlipidemia, unspecified, K22.89 - Other specified disease of esophagus Creatine Kinase Total 6 Months M62.81 - Muscle weakness (generalized) Referrals Neurology Referral M6.81 - Muscle weakness (generalized) Medications: New Myrbetriq ER (mirabegron) 25 mg PO DAILY 90 tabs 1RF NS
--- OUTSIDE RECORDS SUMMARY | 2024-10-06 09:58 | XMS_ITS | Patient Health Record ---
Author Organization [facility] Address [address] [place] [address] Care Team Providers Care Container Washer Name Role Phone Beatriz RECIO, Michelle Primary Care Provider Pineda Pena [phone] Allergies Allergen (clinical drug ingredient) Drug/Non Drug [...] Risk Notes Problem Left lower quadrant pain (242045046) Abdominal pain, left lower quadrant (789.04) Active confirmed Problem Colon cancer screening (922246735) Colon cancer screening (V76.51) Active confirmed Problem Chronic constipation (009499860) Chronic constipation (564.00) Active confirmed Plan Of Treatment Future Test Test Name Order Date COLONOSCOPY 05/30/2012 Insurance Providers Payer Name Payer Address Payer Phone Subscriber Number Group Number Insured Name Patient Relationship to Insured Coverage Start Date Coverage End Date [employer] [address] [place] [phone] [id number] SARAH RAYO Self - patient is the insured Medical (General) History Medical History History ICD Code colonoscopy 05-19-2002-neg. constipation lung cancer-RUL Lobectomy wi chemo in 2006, and recurrence in RML in 2008-being observed Hodgkin's disease--XRT Denies DE,DM,CVA,Lung disease,renal dise ase Hypothyroidism Surgical History Surgery Date(Month/Year) right upper lobe lobectomy as above laparotomy with splenectomy for the Hodg kin's disease hysterectomy with BSO carpal tunnel and wrist surgery
== END 2024-10-06 15:55 | disposition home or self-care (01) ==
PROVIDERS: PCP Internal Medicine; Visit Provider Internal Medicine
DX: M62.81 Muscle weakness (generalized) (principal); E03.9 Hypothyroidism, unspecified; E78.5 Hyperlipidemia, unspecified; K22.89 Other specified disease of esophagus; R91.8 Other nonspecific abnormal finding of lung field

== ENCOUNTER → 2024-10-06 09:13 | Outpatient (BNVA) | payer MEDICARE, SELFPAY | PROVIDERS: PCP Internal Medicine; Visit Provider Internal Medicine ==

== ENCOUNTER 2024-10-06 13:46 | Outpatient (AMB) | payer MEDICARE, SELFPAY ==
[2024-10-06 13:55] VITALS: BP 118/64; PULSE 90; O2SAT 98; BMI 20.6
--- NOTE | 2024-10-06 13:55 | MHC.OFFVIS ---
Vital Signs 10/06/24 13:55 Height 4 ft 11 in Weight 102 lb BMI 20.6 BP 118/64 Blood Pressure Location Rt brachial Position Sitting Pulse 90 Pulse Oximetry (%) 98 Oxygen Delivery Method Room Air Intake Visit Reasons: PFT/Shortness of Breath Registrar College Or University Required: No Safety Coordinator: Safety Coordinator offered & declined Accompanied by: Self / Same As Patient Allergies codeine [CODEINE] Allergy (Severe, Verified 10/06/24 14:01) HYPOTENSION morphine [MORPHINE] Allergy (Severe, Verified 10/06/24 14:01) hives,HYPOTENSION acetaminophen [Percocet] Allergy (Unknown, Verified 10/06/24 14:01) Vomiting oxycodone [From Percocet] Adverse Reaction (Mild, Verified 10/06/24 14:01) VOMITING morphine Allergy (Unknown, Uncoded 10/06/24 14:01) hives percocet Allergy (Unknown, Uncoded 10/06/24 14:01) vomiting Medication List - Last Reconciled 10/06/24 by Celia Harrington LPN escitalopram oxalate 10 mg PO DAILY esomeprazole magnesium 40 mg PO DAILY levothyroxine Take 1-1/2 tablet one day a week and 1 tablet daily for the rest of the week orally ; Myrbetriq ER (mirabegron) 25 mg PO DAILY NS pravastatin 20 mg PO DAILY HPI HPI PFT/Shortness of Breath: Details: Agnes is a pleasant 79 year old female, never smoker, with h/o Hodgkin's lymphoma s/p chest radiation 25+ years ago, h/o lung cancer s/p right upper lobectomy and hypothyroidism. Agnes continues to report intermittent dyspnea with exertion as well as dysphagia which leads to dry cough. She denies wheezing or chest tightness. She reportedly had cardiac evaluation which did not support cardiac etiology for dyspnea. She does have an upcoming endoscopy scheduled to further evaluate. Previously had offered empiric treatment with ELINA vs ICS however she deferred. She also questions if seasonal allergies are contributing to symptoms as she reports ongoing sinus issues that started over the winter and have continued. Today she presents to review PFT results. She denies any visits to urgent care or hospitalizations related to respiratory distress. [facility] Medical History Depression Hypothyroidism Lung cancer Hodgkin disease Surgical History History of back surgery S/P right rotator cuff repair Family History Mother No problems noted. Father Substance use disorder Father No problems noted. Brother Dementia Sister Dementia Social History Household Members Other:: 83 Housing: House Alcohol intake: current Alcohol intake frequency: holidays/special occasions only Alcohol type: wine Patient Tobacco Use Status: Never used Tobacco e-Cigarette/Vaping Use: Never Used service: No Current occupational status: retired Cognitive needs: No Hearing needs: Yes Vision needs: Yes Review of Systems Const Denies chills, Denies excessive sweating, Denies fever(s), Denies headache(s) and Denies night sweats Eyes Denies dry eyes, Denies irritation and Denies itchy eyes ENT Reports Normal hearing present, Denies headache(s) and Denies nasal discharge Card Denies chest pain, Denies chest pain at rest, Denies chest pain with activity, Denies claudication, Denies leg edema, Denies orthopnea and Denies paroxysmal nocturnal dyspnea Resp Denies chest congestion, Denies excessive phlegm production, Denies pain on inspiration, Denies pain with cough, Denies stridor and Denies wheezing Musc Denies myalgias Neuro Reports Normal hearing present and Denies headache(s) Endo Denies excessive sweating Jayro/Lymph Denies lymphadenopathy Aller/Immun Denies itchy eyes, Denies seasonal rhinorrhea and Denies wheezing Physical Exam Vital Signs: Last Vital Signs Pulse 90 10/06/24 13:55 BP 118/64 10/06/24 13:55 Pulse Ox 98 10/06/24 13:55 Oxygen Delivery Method Room Air 10/06/24 13:55 BMI result Body Mass Index 20.6 Const General: cooperative, healthy appearing, comfortable, no acute distress, well developed and alert Orientation/consciousness: patient oriented x3 Limitations: no limitations HEENT Head: Yes normal to inspection, Yes normocephalic and Yes atraumatic Ears: hearing grossly normal bilaterally and external ears normal Mouth: moist mucous membranes abnormal (d/t prior radiation) Eyes General: appearance normal, both eyes and all related structures Eyelids: Yes eyelids normal Sclerae: sclerae normal EOM: EOMs intact bilaterally Neck Neck: Yes normal visual inspection and Yes no lymphadenopathy Lymphatic: no lymphadenopathy noted Chest Chest palpation & inspection: normal inspection of the chest Resp Effort & Inspection: normal respiratory effort, able to speak in complete sentences, no audible wheezes, no cough, no stridor, not tachypneic, no tripod positioning and no use of accessory muscles Auscultation: clear to auscultation bilaterally Cardio Jugular venous distension: no JVD Rate: regular rate Rhythm: regular rhythm Skin Other: warm, dry General skin exam: no rashes or lesions noted Neuro General: patient oriented x3 Cranial nerves: Yes Normal hearing present Cognition (Neuro): normal cognition Gait exam (Neuro): Normal gait present Extrem General: Yes normal to inspection, Yes capillary refill normal, Yes no clubbing, cyanosis or edema and Yes no pedal edema Psych Appearance: grossly normal and well kempt Speech and movement: Normal speech and movement present and Clear speech present Affect: normal affect Attitude: cooperative Thought process: Normal thought process present Thought content: Normal thought content present Insight: Good insight present (Psych) Judgement: Good judgement present (Psych) Results Reviewed Results Reviewed: [place] [address] CT Scan Report Signed Patient: Agnes Joseph MR#: [id number] : 1945 Acct:[id number] Age/Sex: 79 / F ADM Date: 09/02/24 Loc: HO.CT Attending Dr: Bianca Hilario NP Ordering Physician: Bianca Hilario NP Date of Service: 09/02/24 Procedure(s): CT chest wo IV con Accession Number(s): [id number] cc: Ida Carpenter MD; Bianca Hilario NP~ Report Number: [id number]: Total DLP = 113.00 mGy-cm CLINICAL HISTORY: R91.8 - Other nonspecific abnormal finding of lung field CT chest without IV contrast. COMPARISON: CT chest dated 08/29/23 at 09:34 EST FINDINGS: Diminutive thyroid gland. No supraclavicular or axillary lymphadenopathy. Aortic and mitral annular calcifications. No pericardial effusion. Normal esophagus. Multiple calcified mediastinal lymph nodes. Postsurgical changes of right upper lobectomy. No pleural effusion. No consolidation. Trachea and central airways are clear. No significant bronchial wall thickening. No bronchiectasis. Calcified granulomas present within the right lower lobe. Left upper lobe 3 mm pulmonary nodule (series 4, image 29), stable. Left lower lobe 2 mm pulmonary micronodule (series 4, image 86), stable. Right middle lobe 3 mm pulmonary nodule (series 4, image 80), stable. Right middle lobe 3 mm pulmonary nodule (series 4, image 25), stable. Visualized portions of the upper abdomen are unremarkable. Anterior wedge compression fracture of the T12 vertebral body with approximately 25 percent height loss, new since prior imaging. No retropulsion into the canal. There is increased thoracic kyphosis at this level. Right shoulder arthroplasty partially visualized. Chronic healed posterior right rib fractures. IMPRESSION: 1. Status post right upper lobectomy with the evidence of residual versus recurrent disease. 2. Stable appearance of bilateral 2-3 mm pulmonary nodules. 3. Age-indeterminate anterior wedge compression fracture of the T12 vertebral body with approximately 25 percent height loss. This is new since imaging dated 08/29/2023. No retropulsion into the canal. This document has been electronically signed by: Je Nix MD on 09/02/2024 15:19:04 Dictated By: Je Nix MD Signed By: <Electronically signed by Je Nix MD in OV> 09/02/24 1519 DD/ 1519 TD/TT: 09/02/[address] Foreman: Assessment & Plan Assessment & Plan (1) Shortness of breath: Comment: negative nuclear stress test 09/2023 Code(s): R06.02 - Shortness of breath Category: Medical (2) History of lung cancer: Code(s): Z85.118 - Personal history of other malignant neoplasm of bronchus and lung Category: Medical (3) History of Hodgkin's lymphoma: Code(s): Z85.71 - Personal history of Hodgkin lymphoma Category: Medical (4) Status post radiation therapy: Code(s): Z92.3 - Personal history of irradiation Category: Medical (5) Emphysema of lung: Comment: Mild on CT of the chest 09/2023 Code(s): J43.9 - Emphysema, unspecified Category: Medical (6) Multiple pulmonary nodules: Comment: Chest CT 09/2023 S/P RUL lobectomy, small pul nodules, mild emphysema Code(s): R91.8 - Other nonspecific abnormal finding of lung field Category: Medical Plan Reviewed PFT which revealed no obstructive or restrictive ventilatory defect. No bronchodilator response, except in small to medium airways suggestive of small airways disease. Lung volumes and DLCO normal. Again offered to trial albuterol MDI which she was agreeable to. Educated patient on proper inhaler technique and when to use. She questions allergic component due to persistent nasal congestion. Will send for RAST and recommended trial of Flonase. Prior Chest CT noted multiple pulmonary nodules <4 mm, repeat chest CT revealed stable nodules. There was also an incidental finding of anterior wedge compression fracture of the T12 vertebral body with approximately 25 percent height loss. This is new since imaging dated 08/29/2023. No retropulsion into the canal. PCP aware and will send patient for DEXA scan. All questions were answered and patient is in agreement of plan. Will follow up in 3 months or sooner if needed. Orders: Orders Immunoglobulin E Today Z91.09 - Other allergy status, other than to drugs and biological substances Resp Allergy Profile Region I Today Z91.09 - Other allergy status, other than to drugs and biological substances Medications: New albuterol sulfate 90 mcg/actuation 1 puff inhalation Q4-6H PRN 1 ea 0RF shortness of breath or wheezing Coding Level of Care Code Est Pt Level 4 (37192) Diagnoses Shortness of breath R06.02 History of lung cancer Z85.118 History of Hodgkin's lymphoma Z85.71 Status post radiation therapy Z92.3 Emphysema of lung J43.9 Multiple pulmonary nodules R91.8
--- OUTSIDE RECORDS SUMMARY | 2024-10-06 16:55 | XMS_ITS ---
Author Organization [facility] Address [address] [place] [address] Care Team Providers Care Bacon Skinner Name Role Phone Michelle Henderson NP Primary Care Provider Pineda Pena [phone] Encounters Encounter Location Date Provider Diagnosis [facility] [address] [place] [address] 09/27/2023 Pineda Simmons Plan Of Treatment No Information Progress Notes * MICHAEL MARINOB:[birth year] (78 yo F)Acc No.[id number]:09/27/2023 Patient:?SARAH MARIN :1945???Age:78 Y???Sex:Female Address:[address] [place] [address] * true * Date:? Generated for Neema campos/Daniela/eTransmitting on:?10/06/2024 04:55 PM EDT
== END 2024-10-06 14:28 | disposition home or self-care (01) ==
LOC: HO.HPSW 13:46
PROVIDERS: PCP Internal Medicine; Visit Provider Nurse Practitioner Family
DX: R06.02 Shortness of breath (principal); Z85.118 Personal history of other malignant neoplasm of bronchus and lung; Z85.71 Personal history of Hodgkin lymphoma; Z92.3 Personal history of irradiation; J43.9 Emphysema, unspecified; R91.8 Other nonspecific abnormal finding of lung field
CPT/HCPCS: 99214

== ENCOUNTER 2024-10-06 14:32 | Outpatient (REF) | payer MEDICARE, SELFPAY ==
[2024-10-07 06:34] LABS: Immunoglobulin E 51 kU/L (<OR=114)
[2024-10-08 05:33] LABS: Class Alternaria alternata 0; Class Aspergillus fumigatus 0; Class Bermuda Grass 2; Class Birch 1; Class Cat Dander 0; Class Cladosporium herbarum 0; Class Cockroach 0; Class Common Ragweed 0/1; Class Cottonwood 0; Class Derm. pterony 0/1; Class Dermatophagoides farinae 0/1; Class Dog Dander 0; Class Elm 0; Class Maple Box Elder 2; Class Mountain Cedar 0; Class Mouse Urine Protein 0; Class Mugwort 0; Class Oak 0/1; Class Penicillium crysogenum 0; Class Rough Pigweed 0; Class Sheep Sorrel 0; Class Sycamore 0; Class Timothy Grass 3; Class Walnut Tree 0/1; Class White Ash 0/1; Class White Mulberry 0; D001 IgE D pteronyssinus 0.14 kU/L; E001 - IgE Cat Dander <0.10 kU/L; E005 - IgE Dog Dander <0.10 kU/L; E072-IgE Mouse Urine <0.10 kU/L; G002 IgE Bermuda Grass 0.99 kU/L; G006 - IgE Timothy Grass 4.35 kU/L; I006-IgE Cockroach, German <0.10 kU/L; Immunoglobulin E 49 kU/L (<OR=114); M001 IgE Penicillium chrysogen <0.10 kU/L; M002 - IgE Cladosporium herbar <0.10 kU/L; M003 - IgE Aspergillus fumigat <0.10 kU/L; M006 - IgE Alternaria alternat <0.10 kU/L; T001 IgE Maple/Box Elder 1.84 kU/L; T003 IgE Common Silver Birch 0.39 kU/L; T006 - IgE Cedar, Mountain <0.10 kU/L; T008 IgE Elm, American <0.10 kU/L; T010 - IgE Walnut 0.14 kU/L; T011 - IgE Maple Leaf Sycamore <0.10 kU/L; T014 - IgE Cottonwood <0.10 kU/L; T015 - IgE Ash, White 0.13 kU/L; T070 - IgE White Mulberry <0.10 kU/L; W006 - IgE Mugwort <0.10 kU/L; W014 IgE Pigweed, Common <0.10 kU/L; W018 IgE Sheep Sorrel <0.10 kU/L
== END 2024-10-06 14:33 | disposition home or self-care (01) ==
LOC: HO.WFDLDS 14:32
PROVIDERS: Visit Provider Nurse Practitioner Family
DX: M62.81 Muscle weakness (generalized) (principal); E03.9 Hypothyroidism, unspecified; E78.5 Hyperlipidemia, unspecified; K22.89 Other specified disease of esophagus; R91.8 Other nonspecific abnormal finding of lung field; Z91.09 Other allergy status, other than to drugs and biological substances; R06.02 Shortness of breath; J43.9 Emphysema, unspecified; Z92.3 Personal history of irradiation; Z85.71 Personal history of Hodgkin lymphoma; Z85.118 Personal history of other malignant neoplasm of bronchus and lung
CPT/HCPCS: 36415; 82785; 86003; 96127; 99212

== ENCOUNTER 2024-10-09 07:51 | Outpatient (REF) | payer MEDICARE, SELFPAY ==
--- NOTE | ~2024-10-09 | MM_ITS ---
EXAMINATION: DXA BONE DENSITY AXIAL HISTORY: Z78.0 - Asymptomatic menopausal state TECHNIQUE: [place] Dual energy absorptiometry (DEXA) of the lumbar spine, total left hip, and femoral neck was performed. COMPARISON: Comparison is made with the prior examination dated 03/23/2021. FINDINGS: The bone mineral density of the lumbar spine is 1.405 with a T-score of 1.9, and a Z-score of 4.4. This is indicative of normal bone mineral density. This represents a BMD change of 1.0% compared to the prior exam. This is not statistically significant. The bone mineral density of the left total hip is 0.839 with a T-score of -1.3, and a Z-score of 1.2. This is indicative of osteopenia. This represents a BMD change of -7.4% compared to the prior exam. This is statistically significant. The bone mineral density of the left femoral neck is 0.801 with a T-score of -1.7, and a Z-score of 0.9. This is indicative of osteopenia. This represents a BMD change of -9.2% compared to the prior exam. FRACTURE RISK: The FRAX index suggests a ten year probability of major osteoporotic fracture of 17.6%, and of hip fracture 4.5%. MM/XR DEXA axial skeleton IMPRESSION: Based on bone mineral density, and according to World Health Organization (WHO) criteria, the diagnosis is consistent with osteopenia. All bone density values are in grams per centimeter squared (g/cm2). Statistically, 68% of repeat scans fall within 1 SD (+/- 0.010 g/cm2 for AP spine L1-L4) and 1 SD (+/- 0.012 g/cm2 for femur total) FRAX is a trademark of the [employer]'s [employer] for Metabolic Bone Disease, a World Health Organization (WHO) Collaborating Center. Electronically signed by: Pineda Morgan MD 10/09/2024 09:14 AM EDT
--- OUTSIDE RECORDS SUMMARY | 2024-10-09 07:55 | XMS_ITS ---
Author Organization [facility] Address [address] [place] [address] Care Team Providers Care Trailer Steerer Name Role Phone Michelle Henderson NP Primary Care Provider Pineda Pena [phone] Encounters Encounter Location Date Provider Diagnosis [facility] [address] [place] [address] 09/27/2023 Pineda Simmons Plan Of Treatment No Information Progress Notes * MICHAEL MARINOB:[birth year] (78 yo F)Acc No.[id number]:09/27/2023 Patient:?SARAH MARIN :1945???Age:78 Y???Sex:Female Address:[address] [facility] [place] [address] * true * Date:? Generated for Neema campos/Daniela/eTransmitting on:?10/09/2024 07:54 AM EDT
--- OUTSIDE RECORDS SUMMARY | 2024-10-09 07:55 | XMS_ITS | Patient Health Record ---
Author Organization [facility] Address [address] [place] [address] Care Team Providers Care Credentialing Manager Name Role Phone Beatriz RECIO, Michelle Primary Care Provider Pineda Pena [phone] Allergies Allergen (clinical drug ingredient) Drug/Non Drug [...] Risk Notes Problem Left lower quadrant pain (174289813) Abdominal pain, left lower quadrant (789.04) Active confirmed Problem Colon cancer screening (329842630) Colon cancer screening (V76.51) Active confirmed Problem Chronic constipation (269138838) Chronic constipation (564.00) Active confirmed Plan Of Treatment Future Test Test Name Order Date COLONOSCOPY 05/30/2012 Insurance Providers Payer Name Payer Address Payer Phone Subscriber Number Group Number Insured Name Patient Relationship to Insured Coverage Start Date Coverage End Date Aetna [address] [place] [phone] [id number] SARAH RAYO Self - patient is the insured Medical (General) History Medical History History ICD Code colonoscopy 05-19-2002-neg. constipation lung cancer-RUL Lobectomy chemo in 2006, and recurrence in RML in 2008-being observed Hodgkin's disease--XRT Denies [place],DM,CVA,Lung disease,renal dise ase Hypothyroidism Surgical History Surgery Date(Month/Year) right upper lobe lobectomy as above laparotomy with splenectomy for the Hodg kin's disease hysterectomy with BSO carpal tunnel and wrist surgery
== END 2024-10-09 07:52 | disposition home or self-care (01) ==
LOC: HO.MAMMO 07:51
PROVIDERS: PCP Internal Medicine; Visit Provider Internal Medicine
DX: Z13.820 Encounter for screening for osteoporosis (principal); Z78.0 Asymptomatic menopausal state
CPT/HCPCS: 77080

== ENCOUNTER → 2024-10-09 08:15 | Outpatient (BNV) | payer MEDICARE, SELFPAY | PROVIDERS: PCP Internal Medicine; Visit Provider Radiology Diagnostic Radiology | DX: E28.39 Other primary ovarian failure (principal) | CPT/HCPCS: 77080 ==

== ENCOUNTER 2024-11-12 09:20 | Outpatient (AMB) | payer MEDICARE, SELFPAY ==
--- OUTSIDE RECORDS SUMMARY | 2024-11-12 09:33 | XMS_ITS ---
Author Organization [facility] Address [address] [place] [address] Care Team Providers Care Technical Writer And Editor Name Role Phone Michelle Henderson NP Primary Care Provider Pineda Pena [phone] Encounters Encounter Location Date Provider Diagnosis [facility] [address] [place] [address] 09/27/2023 Pineda Simmons Plan Of Treatment No Information Progress Notes * MICHAEL MARINOB:[birth year] (78 yo F)Acc No.[id number]:09/27/2023 Patient:?SARAH MARIN :1945???Age:78 Y???Sex:Female Address:[address] [place] [address] * true * Date:? Generated for Neema campos/Daniela/eTransmitting on:?11/12/2024 09:33 AM EDT
--- OUTSIDE RECORDS SUMMARY | 2024-11-12 09:33 | XMS_ITS | Patient Health Record ---
Author Organization [facility] Address [address] [place] [address] Care Team Providers Care Anesthesiologist Assistant Certified Name Role Phone Beatriz RECIO, Michelle Primary Care Provider Pineda Pena [phone] Allergies Allergen (clinical drug ingredient) Drug/Non Drug [...] Risk Notes Problem Left lower quadrant pain (950899869) Abdominal pain, left lower quadrant (789.04) Active confirmed Problem Colon cancer screening (128059516) Colon cancer screening (V76.51) Active confirmed Problem Chronic constipation (951744789) Chronic constipation (564.00) Active confirmed Plan Of Treatment Future Test Test Name Order Date COLONOSCOPY 05/30/2012 Insurance Providers Payer Name Payer Address Payer Phone Subscriber Number Group Number Insured Name Patient Relationship to Insured Coverage Start Date Coverage End Date Aetna [address] [place] [phone] [id number] SARAH RAYO Self - patient is the insured Medical (General) History Medical History History ICD Code colonoscopy 05-19-2002-neg. constipation lung cancer-RUL Lobectomy chemo in 2006, and recurrence in RML in 2008-being observed Hodgkin's disease--XRT Denies [place],DM,CVA,Lung disease,renal dise ase Hypothyroidism Surgical History Surgery Date(Month/Year) right upper lobe lobectomy as above laparotomy with splenectomy for the Hodg kin's disease hysterectomy with BSO carpal tunnel and wrist surgery
--- NOTE | 2024-11-12 11:38 | AM.OFFWIN_ITS ---
Intake Vital Signs 11/12/24 11:39 Weight 102 lb BP 116/78 Blood Pressure Location Rt brachial Position Sitting Pulse 87 Pulse Source Pulse Oximeter Temp 98.1 F Temp Source Oral Pulse Oximetry (%) 95 Oxygen Delivery Method Room Air Intake Visit Reasons: EP Ear ache Intake Note: Patient here for bilat ear pain that has been present for 3 weeks. Patient Tobacco Use Status: Never used Tobacco Allergies codeine [CODEINE] Allergy (Severe, Verified 11/12/24 11:38) HYPOTENSION morphine [MORPHINE] Allergy (Severe, Verified 11/12/24 11:38) hives,HYPOTENSION acetaminophen [Percocet] Allergy (Unknown, Verified 11/12/24 11:38) Vomiting oxycodone [From Percocet] Adverse Reaction (Mild, Verified 11/12/24 11:38) VOMITING morphine Allergy (Unknown, Uncoded 11/12/24 11:38) hives percocet Allergy (Unknown, Uncoded 11/12/24 11:38) vomiting Do you need a note to return to daycare/school/sports/work: No HPI HPI Comments History of Present Illness Details 79 y/o Female patient who presents to [facility] walk in clinic with c/o Right sided Jaw pain that radiates to the right ear x 3 weeks. FORMERLY [facility] Medical History (Updated 11/12/24 @ 12:07 by Cyndee Vuong NP) Jaw pain, non-TMJ Depression Hypothyroidism Lung cancer Hodgkin disease Surgical History History of back surgery S/P right rotator cuff repair Family History Mother No problems noted. Father Substance use disorder Father No problems noted. Brother Dementia Sister Dementia Social History Household Members Other:: 83 Housing: House Alcohol intake: current Alcohol intake frequency: holidays/special occasions only Alcohol type: wine Patient Tobacco Use Status: Never used Tobacco e-Cigarette/Vaping Use: Never Used service: No Current occupational status: retired Cognitive needs: No Hearing needs: Yes Vision needs: Yes Review of Systems Const All systems reviewed & are unremarkable except as noted in HPI and below Physical Exam Vital Signs: Last Vital Signs Temp 98.1 F 11/12/24 11:39 Pulse 87 11/12/24 11:39 BP 116/78 11/12/24 11:39 Pulse Ox 95 11/12/24 11:39 Oxygen Delivery Method Room Air 11/12/24 11:39 Const General: no acute distress; No comfortable Nutritional Appearance: thin Orientation/consciousness: patient oriented x3 HEENT Head: Yes normocephalic Ears: external ears normal and TM's normal bilaterally General nose exam: Normal external nose present Face and sinus: Yes sinuses nontender Mouth: moist mucous membranes and other (Normal TMJ movement - mild tenderness right sided Jaw) Teeth and gingiva: fair dentition Throat: Yes uvula midline Neuro General: patient oriented x3, gait normal and moves all extremities Psych Speech and movement: Normal speech and movement present Assessment & Plan Assessment & Plan (1) Jaw pain, non-TMJ: Code(s): R68.84 - Jaw pain Plan: Ordered Naproxen for pain relief. B/L TM intact no infection present. Advised to follow up with Dentist for evaluation of any Dental infection. Medications: New naproxen 500 mg PO BID 14 tabs 0RF 7 days R68.84 - Jaw pain Coding Level of Care Code Est Pt Level 4 (55256) Diagnoses Jaw pain, non-TMJ R68.84 Time Spent (min) 20
[2024-11-12 11:39] VITALS: BP 116/78; PULSE 87; TEMP 36.7; O2SAT 95
== END 2024-11-12 12:14 | disposition home or self-care (01) ==
PROVIDERS: PCP Internal Medicine; Visit Provider Nurse Practitioner Family
DX: R68.84 Jaw pain (principal)

== ENCOUNTER → 2024-11-12 09:20 | Outpatient (BNVA) | payer MEDICARE, SELFPAY | PROVIDERS: PCP Internal Medicine; Visit Provider Nurse Practitioner Family | DX: R68.84 Jaw pain (principal) | CPT/HCPCS: 99212 ==

== ENCOUNTER 2024-11-19 08:57 | Day surgery (SDC) | payer MEDICARE, SELFPAY ==
--- OUTSIDE RECORDS SUMMARY | 2024-10-08 07:36 | XMS_ITS | Patient Health Record ---
Author Organization [facility] Address [address] [place] [address] Care Team Providers Care Road Cleaner Name Role Phone Beatriz RECIO, Michelle Primary Care Provider Pineda Pena [phone] Allergies Allergen (clinical drug ingredient) Drug/Non Drug [...] Risk Notes Problem Left lower quadrant pain (579179117) Abdominal pain, left lower quadrant (789.04) Active confirmed Problem Colon cancer screening (715472253) Colon cancer screening (V76.51) Active confirmed Problem Chronic constipation (744812336) Chronic constipation (564.00) Active confirmed Plan Of Treatment Future Test Test Name Order Date COLONOSCOPY 05/30/2012 Insurance Providers Payer Name Payer Address Payer Phone Subscriber Number Group Number Insured Name Patient Relationship to Insured Coverage Start Date Coverage End Date Aetna [address] [place] [phone] [id number] SARAH RAYO Self - patient is the insured Medical (General) History Medical History History ICD Code colonoscopy 05-19-2002-neg. constipation lung cancer-RUL Lobectomy wi chemo in 2006, and recurrence in RML in 2008-being observed Hodgkin's disease--XRT Denies [place],DM,CVA,Lung disease,renal dise ase Hypothyroidism Surgical History Surgery Date(Month/Year) right upper lobe lobectomy as above laparotomy with splenectomy for the Hodg kin's disease hysterectomy with BSO carpal tunnel and wrist surgery
--- OUTSIDE RECORDS SUMMARY | 2024-10-08 07:36 | XMS_ITS ---
Author Organization [facility] Address [address] [place] [address] Care Team Providers Care Estimator Lumber Name Role Phone Michelle Henderson NP Primary Care Provider Pineda Pena [phone] Encounters Encounter Location Date Provider Diagnosis [facility] [address] [place] [address] 09/27/2023 Pineda Simmons Plan Of Treatment No Information Progress Notes * MICHAEL MARINOB:[birth year] (78 yo F)Acc No.[id number]:09/27/2023 Patient:?SARAH MARIN :1945???Age:78 Y???Sex:Female Address:[address] [facility] [place] [address] * true * Date:? Generated for Neema campos/Daniela/eTransmitting on:?10/08/2024 07:35 AM EDT
[2024-11-17 12:02] VITALS: BMI 19.6
[2024-11-17 15:29] VITALS: BMI 20.6
--- NOTE | 2024-11-18 11:44 | HO.ANESPROP2 ---
HPI - Anesthesia Eval Consult details Narrative: 79yo F for Upper Endoscopy with Balloon Dilitation Follows [facility] Pulmo for h/o Hodgkin's lymphoma s/p chest radiation 25+ years ago, h/o lung cancer s/p right upper lobectomy - last eval 09/2024 ? allergic component, pulmo nodules stable PMFSH Active Problems Active Problems: All Active Problems Jaw pain, non-TMJ (Acute) Environmental allergies (Acute) Muscle weakness of all 4 extremities (Acute) Hearing loss (Acute) Postmenopausal (Acute) Anemia (Acute) Mass of esophagus (Acute) Hyperlipidemia (Acute) Hypothyroidism (Acute) Multiple pulmonary nodules (Acute) Emphysema of lung (Acute) Status post radiation therapy (Acute) History of Hodgkin's lymphoma (Acute) History of lung cancer (Acute) Dysphagia (Acute) Shortness of breath (Acute) Dysuria (Acute) Past Medical History Medical History (Updated 11/12/24 @ 12:07 by Cyndee Vuong NP) Jaw pain, non-TMJ Depression Hypothyroidism Lung cancer Hodgkin disease Family History Family History Mother No problems noted. Father Substance use disorder Father No problems noted. Brother Dementia Sister Dementia Surgical History Surgical History History of back surgery S/P right rotator cuff repair Social History Social History Household Members Other:: 83 Housing: House Alcohol intake: current Alcohol intake frequency: holidays/special occasions only Alcohol type: wine Patient Tobacco Use Status: Never used Tobacco e-Cigarette/Vaping Use: Never Used service: No Current occupational status: retired Cognitive needs: No Hearing needs: Yes Vision needs: Yes Meds Allergies Allergy/AdvReac Type Severity Reaction Status Date / Time codeine [CODEINE] Allergy Severe HYPOTENSION Verified 11/12/24 11:38 morphine [MORPHINE] Allergy Severe hives,HYPOT Verified 11/12/24 11:38 ENSION acetaminophen [Percocet] Allergy Unknown Vomiting Verified 11/12/24 11:38 oxycodone [From Percocet] AdvReac Mild VOMITING Verified 11/12/24 11:38 Exam Height,Weight and Vital Signs: Height 4 ft 11 in Weight 46.266 kg Pertinent Lab Results Pertinent Lab Results: Laboratory Tests 10/05/24 08:36 WBC 4.3 L Hgb 13.5 Hct 40.5 Plt Count 398 Sodium 141 Potassium 4.2 Chloride 108 Carbon Dioxide 27 BUN 16 Creatinine 0.68 Narrative Narrative: NM cardiolite stress test 2023 Impression: 1. Normal myocardial perfusion 2. Gated LVEF is greater than 70% 3. Transient ischemic dilatation not present Stress EKG is negative for ischemia Chest CT 2024 IMPRESSION: 1. Status post right upper lobectomy with the evidence of residual versus recurrent disease. 2. Stable appearance of bilateral 2-3 mm pulmonary nodules. 3. Age-indeterminate anterior wedge compression fracture of the T12 vertebral body with approximately 25 percent height loss. This is new since imaging dated 08/29/2023. No retropulsion into the canal. Assessment and Plan Assessment Anesthesia Assessment: Chart Reviewed
[2024-11-19 10:20] VITALS: BP 158/77; PULSE 79; RESP 16; TEMP 36.9; O2SAT 99
[2024-11-19] MEDS: Lactated Ringers 1,000 ML 100 ML IVCONT (10:22)
--- NOTE | 2024-11-19 10:31 | MHC.SHP ---
Pre-Procedural Eval Section A - 24 Hr Update-Section A only Date of Service: 11/19/24 Section B - Complete if H&P > 30 days Chief Complaint: Dysphagia, esophageal nodule Details of Present Illness: Depression Hypothyroidism Lung cancer Hodgkin disease Surgical History History of back surgery S/P right rotator cuff repair Present Medications: see Short Stay Collaborative assessment Allergies: Allergies Allergy/AdvReac Type Severity Reaction Status Date / Time codeine [CODEINE] Allergy Severe HYPOTENSION Verified 11/12/24 11:38 morphine [MORPHINE] Allergy Severe hives,HYPOT Verified 11/12/24 11:38 ENSION acetaminophen [Percocet] Allergy Unknown Vomiting Verified 11/12/24 11:38 oxycodone [From Percocet] AdvReac Mild VOMITING Verified 11/12/24 11:38 Review of Systems Review of Systems Comment: Ten point ROS negative Exam Exam Comment: Gen appear: No acute distress HEENT: no icterus Chest: No overt resp distress Abd: soft, nontender, nondistended Psych: Stable affect, answering questions appropriately Neuro: A/Ox3 noted to move all extremities spontaneously Ext: no peripheral edema Plan Diagnosis/Plan: Unchanged I have reviewed the history and physical and performed a pertinent physical examination on my patient. No changes have occurred unless specified. Time Spent With Patient Time: Total time managing care of this patient today ____ minutes.
--- NOTE | 2024-11-19 10:51 | P.CONAN_ITS ---
[facility] Active Problems Active Problems: All Active Problems Jaw pain, non-TMJ (Acute) Environmental allergies (Acute) Muscle weakness of all 4 extremities (Acute) Hearing loss (Acute) Postmenopausal (Acute) Anemia (Acute) Mass of esophagus (Acute) Hyperlipidemia (Acute) Hypothyroidism (Acute) Multiple pulmonary nodules (Acute) Emphysema of lung (Acute) Status post radiation therapy (Acute) History of Hodgkin's lymphoma (Acute) History of lung cancer (Acute) Dysphagia (Acute) Shortness of breath (Acute) Dysuria (Acute) Past Medical History Medical History Jaw pain, non-TMJ Depression Hypothyroidism Lung cancer Hodgkin disease Functional capacity: independent ambulation Patient : No Family History Family History Mother No problems noted. Father Substance use disorder Father No problems noted. Brother Dementia Sister Dementia Family history of problems with anesthesia: No Surgical History Surgical History History of back surgery S/P right rotator cuff repair History of Problems with Anesthesia: No Social History Social History Household Members Other:: 83 Housing: House Alcohol intake: current Alcohol intake frequency: does not drink Alcohol type: wine Patient Tobacco Use Status: Never used Tobacco e-Cigarette/Vaping Use: Never Used Use of substances other than those prescribed or required for medical reasons: No Advance Directives: No Advance Directives Information Provided: Yes service: No Current occupational status: retired Cognitive needs: No Hearing needs: Yes Vision needs: Yes Meds Allergies Allergy/AdvReac Type Severity Reaction Status Date / Time codeine [CODEINE] Allergy Severe HYPOTENSION Verified 11/12/24 11:38 morphine [MORPHINE] Allergy Severe hives,HYPOT Verified 11/12/24 11:38 ENSION acetaminophen [Percocet] Allergy Unknown Vomiting Verified 11/12/24 11:38 oxycodone [From Percocet] AdvReac Mild VOMITING Verified 11/12/24 11:38 Active Medications: Current Medications Albuterol Sulfate (Albuterol Sulfate (0.083%) 2.5 Mg/3 Ml Vial.Neb) 2.5 mg INHALE ONCE PRN PRN Reason: Shortness of Breath/Wheezing Lactated Ringer's (Lr) 1,000 mls @ 100 mls/hr IVCONT .Q10H OLEKSANDR Last Admin: 11/19/24 10:22 Dose: 100 mls/hr Exam Height,Weight and Vital Signs: Height 4 ft 11 in Weight 46.266 kg Last Vital Signs Temp 98.5 F 11/19/24 10:20 Pulse 79 11/19/24 10:20 Resp 16 11/19/24 10:20 BP 158/77 H 11/19/24 10:20 Pulse Ox 99 11/19/24 10:20 O2 Del Method Room Air 11/19/24 10:20 Airway Mallampati Class: II TM Dist: >3cm Neck ROM: Full Heart: RRR Lungs: CTA Assessment and Plan Assessment Anesthesia Assessment: Anesthesia Plan Discussed Final Anesthetic Review Family History of Problems with Anesthesia: No History of Problems with Anesthesia: No NPO: Yes ASA Class: III Final Preanesthetic Review: Meds/Allgs Chart Reviewed, Consent Obtained/Reviewed and Anes Risks/Benef Reviewed Patient Risk: Low Procedure Risk: Low Anesthetic Plan Anesthetic Plan: MAC: Disposition: Standard PACU
--- NOTE | 2024-11-19 11:31 | P.OP_ITS ---
Operative Note Operative Note Date of Service: 11/19/24 Narrative: Procedure: Esophagogastroduodenoscopy Endoscopist: Brandi Bran MD Indication: Dysphagia, abnormal barium swallow Anesthesia Provider: Dr Lashonda Villavicencio Anesthesia Type: MAC ?? EGD Procedure:?? The procedure, indications, preparation and potential complications were reviewed with the patient, who indicated understanding and gave written informed consent to proceed. A physical exam was performed. The endoscope was introduced through the mouth, and advanced to the second part of duodenum. The mucosa was carefully examined on slow withdrawal of the endoscope. The patient tolerated the procedure well. There were no immediate complications.? ? EGD Findings:? * Esophagus:? Normal mucosa noted in the entire esophagus. The Z line was at 37 cm displaced upwards by a hiatal hernia. * Stomach:? A small 3 mm white based healing ulcer noted in pylorus at 8 o cloc k. Cold forceps biopsies were taken from the edge of the ulcer for histology. Retroflexion was performed in the cardia. Multiple polyps noted in the fundus and body of the stomach with appearance consistent with fundic gland polyps. Cold forceps biopsies were taken from a few polyps for histology. * Duodenum:? Erythema and edema noted in the duodenal bulb. Remaining mucosa was normal to the extent examined. Cold forceps biopsies were taken for histology. Additional intervention: Soft tip Savary wire was introduced through the biopsy channel of the gastroscope and advanced to the antrum. ?The gastroscope was then backed out. ?Savary Lady bougie was advanced over the guidewire and the esophagus was dilated to 18 mm with resistance felt. ?On relook, mild heme was noted at the level of cricopharyngeus confirming successful dilation . ? EGD Impressions:? * Cricopharyngeal stenosis (dilation) * Gastric polyps (biopsy) * Gastric ulcer (biopsy) * Duodenitis (biopsy) ?? Recommendations:?? * Follow biopsy results. Our office will call or send a letter with results within 7-10 days. * Continue PPI therapy. * Avoid NSAIDs. Above has been reviewed with the patient.
[2024-11-19 11:33] VITALS: BP 120/61; PULSE 75; RESP 16; TEMP 36.1; O2SAT 97
[2024-11-19 11:47] VITALS: BP 147/75; PULSE 86; RESP 16; TEMP 36.1; O2SAT 99
--- NOTE | 2024-11-19 13:07 | HO.POSTANES ---
Post Anesthesia Evaluation Post Anesthesia Evaluation Date of Service: 11/19/24 Vital Signs: Vital Signs Temp Pulse Resp BP Pulse Ox O2 Del Method 11/19/24 11:47 97 F 86 16 147/75 H 99 Room Air 11/19/24 11:33 97 F 75 16 120/61 97 Room Air 11/19/24 10:20 98.5 F 79 16 158/77 H 99 Room Air Anesthesia: Monitored Mental Status: Awake Pain Control: Satisfactory Nausea/Vomiting: None Hydration: Adequate Anesthesia-Related Issues: No Anes. Related Issues
== END 2024-11-19 12:55 | disposition home or self-care (01) ==
PROVIDERS: PCP Internal Medicine; Visit Provider Internal Medicine
PROC: (CPT 43248; principal; 2024-11-19 11:20)
DX: R13.14 Dysphagia, pharyngoesophageal phase (principal); K29.80 Duodenitis without bleeding; K25.9 Gastric ulcer, unspecified as acute or chronic, without hemorrhage or perforation; K31.7 Polyp of stomach and duodenum; K22.89 Other specified disease of esophagus; K44.9 Diaphragmatic hernia without obstruction or gangrene; E03.9 Hypothyroidism, unspecified; D64.9 Anemia, unspecified; E78.5 Hyperlipidemia, unspecified; J43.9 Emphysema, unspecified; Z85.118 Personal history of other malignant neoplasm of bronchus and lung; Z85.71 Personal history of Hodgkin lymphoma; Z92.3 Personal history of irradiation
CPT/HCPCS: 43248; 43239; 88305; 88313; 88342; C1769; J2003; J2704

== ENCOUNTER → 2024-11-19 08:57 | Outpatient (BNV) | payer MEDICARE, SELFPAY | PROVIDERS: PCP Internal Medicine; Visit Provider Internal Medicine | DX: R13.13 Dysphagia, pharyngeal phase (principal); J39.2 Other diseases of pharynx; K31.7 Polyp of stomach and duodenum; K25.9 Gastric ulcer, unspecified as acute or chronic, without hemorrhage or perforation; K29.80 Duodenitis without bleeding | CPT/HCPCS: 43239; 43248 ==

== ENCOUNTER 2025-01-08 09:39 | Outpatient (AMB) | payer MEDICARE, SELFPAY ==
--- OUTSIDE RECORDS SUMMARY | 2025-01-08 09:45 | XMS_ITS | Clinical Summary ---
Author Organization [facility] Address [address] [place] [address] Phone Care Team Providers Care Briar Wood Sorter Name Role Phone Rosalia Mota MD Unavailable Unknown, Unknown Primary Care Provider Troy lable Allergies Active Allergy Reactions Criticality Noted Date Comments Morphine Hypotension 11/06/2017 Oxycodone-Acetaminop hen Nausea and/or Vomiting 11/06/2017 Other reaction(s): nausea/vomiting Medications calcium carbonate-vit D3-min 600 mg calcium- 400 unit Tab 1 tablet with food bid Active omega-3 fatty acids-fish oil 340-1,000 mg Cap Take 1 capsule by mouth daily. Active multivitamin per tablet ONE DAILY Active Medication-Free TextIndications:ma gnesium /calm dilute in water once a week or every other week Indications: magnesium /calm dilute in water once a week or every other week Active naproxen sodium (ALEVE) 220 MG tablet Take 220-440 mg by mouth daily as needed. Active vit C/E/Zn/coppr/lutei n/zeaxan (PRESERVISION AREDS-2 ORAL) Take 1 capsule by mouth 2 (two) times a day. Active esomeprazole (NEXIUM) 40 MG capsuleIndications :Gastroesophageal reflux disease without esophagitis Take 1 capsule (40 mg total) by mouth daily before breakfast. 90 capsule 3 4 Active escitalopram oxalate (LEXAPRO) 10 MG tablet Take 1 tablet (10 mg total) by mouth daily. 90 tablet 3 4 Active levothyroxine (SYNTHROID, LEVOTHROID) 88 MCG tabletIndications: Acquired hypothyroidism Take 1 tablet po daily except 1/2 tablet on Saturday & Saturday 112 tablet 3 4 Active pravastatin (PRAVACHOL) 20 MG tabletIndications: Mixed hyperlipidemia Take 1 tablet (20 mg total) by mouth daily. 90 tablet 3 4 Active Active Problems Problem Noted Date Diagnosed Date Hearing aid worn 10/02/2022 S/P shoulder replacement, right 01/27/2021 Spinal stenosis of lumbar region at multiple lev els 06/03/2020 Bilateral rotator cuff syndrome 06/03/2020 Acquired hypothyroidism 11/06/2017 Chronic left shoulder pain 11/06/2017 Depression 11/06/2017 Elevated LDL cholesterol level 11/06/2017 Forgetfulness 11/06/2017 Gastroesophageal reflux disease without esophagi tis 11/06/2017 History of Hodgkin's lymphoma 11/06/2017 History of lobectomy of lung 11/06/2017 History of lung cancer 11/06/2017 History of splenectomy 11/06/2017 Mixed hyperlipidemia 11/06/2017 Nocturia 11/06/2017 Tendinitis of right rotator cuff 11/06/2017 Resolved Problems Problem Noted Date Diagnosed Date Resolved Date Current moderate episode of major depressive disorder without prior episode 06/03/2020 2 Immunizations Immunization Administration Dates Next Due COVID-19 (Pre-04/15) Moderna Vaccine, mRNA, PF 04/24/2021,08/26/2020,07/29/2020 Influenza High-Dose Quadriva lent Preservative Free IM 04/11/2022 Influenza High-Dose Trivalen t Preservative Free IM 03/26/2019,03/24/2018,03/15/2017,03/18 Influenza Quadrivalent Adjuv anted Preservative Free IM 03/15/2023,04/07/2021,02/25/2020 Influenza Trivalent w/ Preservative IM 4,03/25/2013,04/10/2010 Influenza, Unspecified Formulation 04/10/2010 Pneumococcal conjugate PCV13 02/23/2015 Pneumococcal polysaccharide PPSV23 02/13/2013, RSV Vaccine (monovalent, adjuvanted) 03/16/2023 Tdap 02/19/2023,09/06/2011 Zoster live 12/15/2015 Zoster recombinant 03/02/2022,01/01/2022 Family History Medical History Relation Comments Dementia Brother 1 No Known Problems Brother 2 Pancreatic cancer Brother 3 Pneumonia Brother 4 Seizures Daughter 1 No Known Problems Daughter 2 Melanoma Daughter 3 Psychiatric disorder Father Stroke Father Rheumatoid arthritis Mother Cancer Sibling Dementia Sister 1 Rheumatoid arthritis Sister 1 Dementia Sister 2 No Known Problems Sister 3 Breast cancer Sister 4 Pancreatic cancer Sister 4 Cancer Sister 5 No Known Problems Son Relation Status Comments Brother 1 Brother 2 Alive Brother 3 Brother 4 (Age 14) Daughter 1 (Age 40) brain fro m age 4-40 until Daughter 2 Alive Daughter 3 Alive Father (Age 83) Mother (Age 94) Sibling Sister 1 Alive Sister 2 Alive Sister 3 Sister 4 Sister 5 Son Alive Social History Tobacco Use Types Packs/Day Years Used Date Smoking Tobacco: Never Smokeless Tobacco: Never Tobacco Cessation:Counseling Given: Not Answered Alcohol Use Standard Drinks/Week Comments Yes 3 (1 standard drink = 0.6 oz pur e alcohol) Education Answer Date Recorded Are you interested in more education? Not on elisa e 10/19/2022 Are you concerned about learning? Not on file 10/19/2022 No 10/19/2022 No 10/19/2022 Digital Access Answer Date Recorded No 11/19/2022 No 11/19/2022 Reliable internet access at home? Not on file 11/19/2022 Device with a working camera? Not on file Intimate Partner Violence Answer Date R ecorded Denied Basic Needs Not on file 02/12/2023 In the past 12 months have y ou been in a relationship with a person who hurts, threatens, or tries to control you? No 02/12/2023 Worried food would run out Not on file 02/12 In the past 12 months have y ou been in a relationship with a person who hurts, threatens, or tries to control you? No 02/12/2023 Comments Unknown Sex and Gender Information Value Date Recorded Sex Assigned at Not on file Legal Sex Female 10:09 PM EDT Gender Identity Not on file Sexual Orientation Not on file Last Filed Vital Signs Vital Sign Reading Time Taken Comments Blood Pressure 108/68 08/20/2023 9:48 AM EST Pulse 83 08/20/2023 9:48 AM EST Temperature 36.3 C (97.4 F) 02/12/2023 9:23 AM EDT Respiratory Rate 16 08/20/2023 9:48 AM EST Oxygen Saturation 97% 08/20/2023 9:48 AM EST Inhaled Oxygen Concentration - - Weight 47.1 kg (103 lb 12.8 oz) 08/20/2023 9:48 AM EST Height 151.2 cm (4' 11.53 ) 08/20/2023 9:[address] Body Mass Index 20.59 08/20/2023 9:48 AM EST Plan of Treatment Health Maintenance Due Date Last Done Comments HIB VACCINES (1 of 1 - Risk 1-dose series) 07/14/1946 MENINGOCOCCAL VACCINES (ACWY) (1 - Risk 2-dose series) 1947 MENINGOCOCCAL VACCINES (B) (1 of 5 - Increased Risk) 1954 FOLLOW UP BONE DENSITY TESTING 03/23/2023 03/23/2021, 12/03/2017 DEPRESSION SCREENING 02/13/2024 02/12/2023 LIPID PANEL 02/13/2024 02/12/2023, 08/0 01/2022, 01/29/2022, Additional history exists COVID-19 VACCINE ( season) 2024 03/16/2023, 04/24/2021, 08/26/2020, Additional history exists TSH LEVEL 08/20/2024 08/20/2023, 01/23, 01/30/2022, Additional history exists Adult Td,Tdap Booster 02/19/2033 02/19/2023, 012 PNEUMOCOCCAL VACCINES (50+ years) Completed 02/23/2015, 02/13/2013, 04/24/2007 OSTEOPOROSIS SCREENING INITIAL (ONE-TIME) Completed 03/23/2021, 12/03/2017 ZOSTER VACCINES Completed 03/02/2022, 12/22, 12/15/2015 RSV VACCINE Completed 03/16/2023 SMOKING STATUS SCREENING (Once After 26 Yrs) Completed 08/20/2023 HEPATITIS A VACCINES Aged Out No long er eligible based on patient's age to complete this topic Medical Devices Not on file Procedures Procedure Name Priority Date/Time Associated Diagnosis Comments TSH Routine 08/20/2023 11:08 AM EST Acquired hypothyroidism LIPID PANEL Routine 02/12/2023 10:20 AM EDT Mixed hyperlipidemia BD DXA SCREENING Routine 03/23/2021 from Last 3 Months or Most Recently Relevant to Health Maintenance Results * TSH (08/20/2023 11:08 AM EST) TSH 1.53 0.27 - 4.20 uIU/mL [facility] Blood 08/20/2023 11:0 8 AM EST 08/20/2023 11:12 AM EST us Michelle Henderson NP LAB BLOOD ORDERABLES Final Resu lt [address] [address] * (ABNORMAL) Lipid panel (02/12/2023 10:20 AM EDT) HDL 92 mg/dL [facility] Comment: Interpretation <40 mg/dL: Low HDL cholesterol (major risk factor for CHD) Greater than or equal to 60 mg/dL: High HDL cholesterol ( negative risk factor for CHD) HDL - cholesterol is affected by a number of factors, e.g. smoking, excerise, hormones, sex and age. CHOLESTEROL 224 0 - 240 mg/dL [facility] TRIGLYCERIDES 105 30 - 160 mg/dL [facility] LDL 111 50 - 129 mg/dL [facility] Comment: LDL levels in terms of risk for coronary heart disease: <100 mg/dL: Optimal 100-129 mg/dL: Near or above optimal 130-159 mg/dL: Borderline high 160-189 mg/dL: High >190 mg/dL: Very High CARDIAC RISK RATIO 2.4(L) 3.3 - 4.4 C [facility] Blood 02/12/2023 10:2 0 AM EDT 02/12/2023 10:24 AM EDT us Michelle Henderson NP LAB BLOOD ORDERABLES Final Resu lt [address] [id number] * DXA Screening (03/23/2021) Anatomical Region Laterality Modality Bone Density Bone Density us Michelle Henderson NP IMG BD BONE DENSITY DEXA Edited Result - Final from Last 3 Months or Most Recently Relevant to Health Maintenance Insurance MEDICARE PART A & B [facility] MEDICARE REPLACEMENT MEDICARE PART A & B Member Subscriber Plan / Payer (Ef fective 2009-Present) Name:Agnes Joseph Member ID:[id number] Relation to Subscriber:Self Name:Agnes Joseph Subscriber ID:[id number] Payer ID:[id number] Group ID:Not on file Type:Medicare Address: [employer] [address] [facility] MEDICARE REPLACEMENT MEDICARE PART A & B [facility] MEDICARE REPLACEMENT MEDICARE PART A & [place] [address] [place] [address] MEDICARE REPLACEMENT MEDICARE PART A & B [facility] MEDICARE REPLACEMENT MEDICARE PART A & B [employer] MEDICARE REPLACEMENT MEDICARE PART A & B [facility] [place] [address] MEDICARE PART A & B [facility] [place] [address] MEDICARE PART A & B [employer] P[employer] MEDICARE REPLACEMENT Care Teams Briar Wood Sorter Relationship Specialty Start Date End Date Unknown, Unknown, PCP - General 09/16/23 Rosalia Mota MD [address] [place], [place] [address] [address] [place] [address] Orthopedic Surgery 08/20/23 Additional Source Comments The information contained in this document represents components of the legal health record. It is not the complete legal health record.[facility]
--- OUTSIDE RECORDS SUMMARY | 2025-01-08 09:45 | XMS_ITS | Patient Health Record ---
Author Organization [facility] Address [address] [place] [address] Care Team Providers Care Scalping Machine Operator Name Role Phone Beatriz RECIO, Michelle Primary Care Provider Pineda Pena [phone] Allergies Allergen (clinical drug ingredient) Drug/Non Drug [...] Risk Notes Problem Left lower quadrant pain (217197550) Abdominal pain, left lower quadrant (789.04) Active confirmed Problem Colon cancer screening (767725704) Colon cancer screening (V76.51) Active confirmed Problem Chronic constipation (135265098) Chronic constipation (564.00) Active confirmed Plan Of Treatment Future Test Test Name Order Date COLONOSCOPY 05/30/2012 Insurance Providers Payer Name Payer Address Payer Phone Subscriber Number Group Number Insured Name Patient Relationship to Insured Coverage Start Date Coverage End Date Aet[employer] [address] [place] [phone] [id number] SARAH RAYO Self - patient is [...]
[2025-01-08 09:46] VITALS: BP 128/72; PULSE 81; O2SAT 98; BMI 20.2
--- NOTE | 2025-01-08 09:46 | MHC.OFFVIS ---
Vital Signs 01/08/25 09:46 Height 4 ft 11 in Weight 100 lb BMI 20.2 BP 128/72 Blood Pressure Location Lt brachial Position Sitting Pulse 81 Pulse Source Pulse Oximeter Pulse Oximetry (%) 98 Oxygen Delivery Method Room Air Intake Visit Reasons: PFT/Shortness of Breath Medical Data Entry Clerk Required: No Trailer Park Manager: Trailer Park Manager offered & declined Accompanied by: Self / Same As Patient Allergies codeine (CODEINE) Allergy (Severe, Verified 01/08/25 09:48) HYPOTENSION morphine (MORPHINE) Allergy (Severe, Verified 01/08/25 09:48) hives,HYPOTENSION acetaminophen (Percocet) Allergy (Unknown, Verified 01/08/25 09:48) Vomiting oxycodone (From Percocet) Adverse Reaction (Mild, Verified 01/08/25 09:48) VOMITING Medication List - Last Reconciled 01/08/25 by Celia Harrington LPN albuterol sulfate 90 mcg/actuation 1 puff PO Q4-6H PRN escitalopram oxalate 10 mg PO DAILY esomeprazole magnesium 20 mg PO DAILY 90 days levothyroxine Take 1-1/2 tablet one day a week and 1 tablet daily for the rest of the week orally ; Myrbetriq ER (mirabegron) 25 mg PO DAILY NS pravastatin 20 mg PO DAILY HPI HPI PFT/Shortness of Breath: Details: Agnes is a pleasant 79 year old female, never smoker, with h/o Hodgkin's lymphoma s/p chest radiation 25+ years ago, h/o lung cancer s/p right upper lobectomy and hypothyroidism. Agnes continues to report intermittent dyspnea with exertion as well as dysphagia which leads to dry cough. She denies wheezing or chest tightness. She reportedly had cardiac evaluation which did not support cardiac etiology for dyspnea. She underwent endoscopy which was reportedly unremarkable, now referred to ENT which is scheduled at the end of the month. scheduled to further evaluate. She was trialed on albuterol MDI which she uses daily with good effect however continues to not be interested in ICS/LABA. She also questions if seasonal allergies are contributing to symptoms as she reports ongoing sinus issues that started over the winter and have continued and presents to review RAST. Of note, she did trial Flonase with good effect. She denies any visits to urgent care or hospitalizations related to respiratory distress. [facility] Medical History (Updated 12/02/24 @ 11:53 by Brandi Bran MD) Jaw pain, non-TMJ Depression Hypothyroidism Lung cancer Hodgkin disease Surgical History (Updated 12/02/24 @ 11:25 by TENZIN Duncan) Hx of colonoscopy History of esophagogastroduodenoscopy (EGD) History of back surgery S/P right rotator cuff repair Family History Mother No problems noted. Father Substance use disorder Father No problems noted. Brother Dementia Sister Dementia Social History Household Members Other:: 83 Housing: House Alcohol intake: current Alcohol intake frequency: does not drink Alcohol type: wine Patient Tobacco Use Status: Never used Tobacco e-Cigarette/Vaping Use: Never Used service: No Current occupational status: retired Cognitive needs: No Hearing needs: Yes Vision needs: Yes Review of Systems Const Denies chills, Denies excessive sweating, Denies fever(s), Denies headache(s) and Denies night sweats Eyes Denies dry eyes, Denies irritation and Denies itchy eyes ENT Reports Normal hearing present, Denies headache(s), Reports nasal congestion and Denies nasal discharge Card Denies chest pain, Denies chest pain at rest, Denies chest pain with activity, Denies claudication, Denies leg edema, Reports dyspnea on exertion, Denies orthopnea and Denies paroxysmal nocturnal dyspnea Resp Denies chest congestion, Reports cough, Denies excessive phlegm production, Denies pain on inspiration, Denies pain with cough, Reports dyspnea on exertion, Denies stridor and Denies wheezing Musc Denies myalgias Neuro Reports Normal hearing present and Denies headache(s) Endo Denies excessive sweating Jayro/Lymph Denies lymphadenopathy Aller/Immun Denies itchy eyes, Denies seasonal rhinorrhea and Denies wheezing Physical Exam Vital Signs: Last Vital Signs Pulse 81 01/08/25 09:46 BP 128/72 01/08/25 09:46 Pulse Ox 98 01/08/25 09:46 Oxygen Delivery Method Room Air 01/08/25 09:46 BMI result Body Mass Index 20.2 Const General: cooperative, healthy appearing, comfortable, no acute distress and alert Orientation/consciousness: patient oriented x3 Limitations: no limitations HEENT Head: Yes normal to inspection, Yes normocephalic and Yes atraumatic Ears: hearing grossly normal bilaterally and external ears normal Mouth: moist mucous membranes abnormal (d/t prior radiation) Eyes General: appearance normal, both eyes and all related structures Eyelids: Yes eyelids normal Sclerae: sclerae normal EOM: EOMs intact bilaterally Neck Neck: Yes normal visual inspection and Yes no lymphadenopathy Lymphatic: no lymphadenopathy noted Chest Chest palpation & inspection: normal inspection of the chest Resp Effort & Inspection: normal respiratory effort, able to speak in complete sentences, no audible wheezes, no cough, no stridor, not tachypneic, no tripod positioning and no use of accessory muscles Auscultation: clear to auscultation bilaterally Cardio Jugular venous distension: no JVD Rate: regular rate Rhythm: regular rhythm Skin Other: warm, dry General skin exam: no rashes or lesions noted Neuro General: patient oriented x3 Cranial nerves: Yes Normal hearing present Cognition (Neuro): normal cognition Gait exam (Neuro): Normal gait present Extrem General: Yes normal to inspection, Yes capillary refill normal, Yes no clubbing, cyanosis or edema and Yes no pedal edema Psych Appearance: grossly normal and well kempt Speech and movement: Normal speech and movement present and Clear speech present Affect: normal affect Attitude: cooperative Thought process: Normal thought process present Thought content: Normal thought content present Insight: Good insight present (Psych) Judgement: Good judgement present (Psych) Assessment & Plan Assessment & Plan (1) Shortness of breath: Comment: negative nuclear stress test 09/2023 Code(s): R06.02 - Shortness of breath Category: Medical (2) History of lung cancer: Code(s): Z85.118 - Personal history of other malignant neoplasm of bronchus and lung Category: Medical (3) History of Hodgkin's lymphoma: Code(s): Z85.71 - Personal history of Hodgkin lymphoma Category: Medical (4) Status post radiation therapy: Code(s): Z92.3 - Personal history of irradiation Category: Medical (5) Emphysema of lung: Comment: Mild on CT of the chest 09/2023 Code(s): J43.9 - Emphysema, unspecified Category: Medical (6) Multiple pulmonary nodules: Comment: Chest CT 09/2023 S/P RUL lobectomy, small pul nodules, mild emphysema Code(s): R91.8 - Other nonspecific abnormal finding of lung field Category: Medical Plan Agnes reports relief of dyspnea with use of albuterol MDI which she has been using frequently. Discussed ICS/LABA however she would like to hold off. Reviewed adverse effects of excessive albuterol. Reviewed RAST which revealed multiple environmental allergies. Discussed ways to minimize exposures and advised continuation of Flonase vs antihistamine PRN. Prior Chest CT 08/2024 revealed multiple pulmonary nodules <4 mm stable, will repeat in one year. All questions were answered and patient is in agreement of plan. Will follow up in 3 months or sooner if needed. Orders: Orders CT chest wo IV con 8 Months R91.8 - Other nonspecific abnormal finding of lung field, Z85.118 - Personal history of other malignant neoplasm of bronchus and lung Coding Level of Care Code Est Pt Level 4 (71890) Diagnoses Shortness of breath R06.02 History of lung cancer Z85.118 History of Hodgkin's lymphoma Z85.71 Status post radiation therapy Z92.3 Emphysema of lung J43.9 Multiple pulmonary nodules R91.8
== END 2025-01-08 10:27 | disposition home or self-care (01) ==
LOC: HO.HPSW 09:39
PROVIDERS: PCP Internal Medicine; Visit Provider Nurse Practitioner Family
DX: R06.02 Shortness of breath (principal); Z85.118 Personal history of other malignant neoplasm of bronchus and lung; Z85.71 Personal history of Hodgkin lymphoma; Z92.3 Personal history of irradiation; J43.9 Emphysema, unspecified; R91.8 Other nonspecific abnormal finding of lung field
CPT/HCPCS: 99214

== ENCOUNTER → 2025-01-08 09:39 | Outpatient (BNVA) | payer MEDICARE, SELFPAY | PROVIDERS: PCP Internal Medicine; Visit Provider Nurse Practitioner Family | DX: R06.02 Shortness of breath (principal); Z91.09 Other allergy status, other than to drugs and biological substances; Z85.118 Personal history of other malignant neoplasm of bronchus and lung; Z85.71 Personal history of Hodgkin lymphoma; Z92.3 Personal history of irradiation; J43.9 Emphysema, unspecified; R91.8 Other nonspecific abnormal finding of lung field | CPT/HCPCS: 99212 ==

== ENCOUNTER 2025-01-25 07:47 | Outpatient (REF) | payer MEDICARE, SELFPAY ==
--- OUTSIDE RECORDS SUMMARY | 2025-01-25 07:50 | XMS_ITS | Patient Health Record ---
Author Organization [facility] Address [address] [place] [address] Care Team Providers Care House Officer Name Role Phone Beatriz RECIO, Michelle Primary Care Provider Pineda Pena [phone] Allergies Allergen (clinical drug ingredient) Drug/Non Drug [...] Risk Notes Problem Left lower quadrant pain (565873868) Abdominal pain, left lower quadrant (789.04) Active confirmed Problem Colon cancer screening (910637310) Colon cancer screening (V76.51) Active confirmed Problem Chronic constipation (458474635) Chronic constipation (564.00) Active confirmed Plan Of Treatment Future Test Test Name Order Date COLONOSCOPY 05/30/2012 Insurance Providers Payer Name Payer Address Payer Phone Subscriber Number Group Number Insured Name Patient Relationship to Insured Coverage Start Date Coverage End Date Aetna [address] [place] [phone] [id number] SARAH RAYO Self - patient is the insured Medical (General) History Medical History History ICD Code colonoscopy 05-19-2002-neg. constipation lung cancer-RUL Lobectomy chemo in 2006, and recurrence in RML in 2008-being observed Hodgkin's disease--XRT Denies DC,DM,CVA,Lung disease,renal dise ase Hypothyroidism Surgical History Surgery Date(Month/Year) right upper lobe lobectomy as above laparotomy with splenectomy for the Hodg kin's disease hysterectomy with BSO carpal tunnel and wrist surgery
--- OUTSIDE RECORDS SUMMARY | 2025-01-25 07:50 | XMS_ITS | Clinical Summary ---
Author Organization [facility] Address [address] [place] [address] Phone Care Team Providers Care Supervisor Baking Name Role Phone Rosalia Mota MD Unavailable [...] EST) TSH 1.53 0.27 - 4.20 uIU/mL [facility] Blood 08/20/2023 11:0 8 AM EST 08/20/2023 11:12 AM EST us Michelle Henderson NP LAB BLOOD ORDERABLES Final Resu lt [address] [address] * (ABNORMAL) Lipid panel (02/12/2023 10:20 AM EDT) HDL 92 mg/dL [facility] Comment: Interpretation <40 mg/dL: Low HDL cholesterol (major risk factor for CHD) Greater than or equal to 60 mg/dL: High HDL cholesterol ( negative risk factor for CHD) HDL - cholesterol is affected by a number of factors, e.g. smoking, excerise, hormones, sex and age. CHOLESTEROL 224 0 - 240 mg/dL [facility] TRIGLYCERIDES 105 30 - 160 mg/dL [facility] LDL 111 50 - 129 mg/dL [facility] Comment: LDL levels in terms of risk for coronary heart disease: <100 mg/dL: Optimal 100-129 mg/dL: Near or above optimal 130-159 mg/dL: Borderline high 160-189 mg/dL: High >190 mg/dL: Very High CARDIAC RISK RATIO 2.4(L) 3.3 - 4.4 C [facility] Blood 02/12/2023 10:2 0 AM EDT 02/12/2023 10:24 AM EDT us Michelle Henderson NP LAB BLOOD ORDERABLES Final Resu lt [address] [id number] * DXA Screening (03/23/2021) Anatomical Region Laterality Modality Bone Density Bone Density us Michelle Henderson NP IMG BD BONE DENSITY DEXA Edited Result - Final from Last 3 Months or Most Recently Relevant to Health Maintenance Insurance MEDICARE PART A & B [facility] MEDICARE REPLACEMENT MEDICARE PART A & B Member Subscriber Plan / Payer (Ef fective 2009-Present) Name:Agnes Joseph Member ID:[id number] Relation to Subscriber:Self Name:Agnes Joseph Subscriber ID:[id number] Payer ID:[id number] Group ID:Not on file Type:Medicare Address: [employer] [address] [facility] MEDICARE REPLACEMENT MEDICARE PART A & B [facility] MEDICARE REPLACEMENT MEDICARE PART A & [place] [address] [place] [address] MEDICARE REPLACEMENT MEDICARE PART A & B [facility] MEDICARE REPLACEMENT MEDICARE PART A & B [employer] MEDICARE REPLACEMENT MEDICARE PART A & B [facility] [place] [address] MEDICARE PART A & B [facility] [place] [address] MEDICARE PART A & B [employer] PPO MEDICARE REPLACEMENT Care Teams Supervisor Baking Relationship Specialty Start Date End Date Unknown, Unknown, PCP - General 09/16/23 Rosalia Mota MD [address] [place], [place] [address] 1[facility] [place] [address] Orthopedic Surgery 08/20/23 Additional Source Comments The information contained in this document represents components of the legal health record. It is not the complete legal health record.[facility]
== END 2025-01-25 07:48 | disposition home or self-care (01) ==
LOC: HO.MAMMO 07:47
PROVIDERS: PCP Internal Medicine; Visit Provider Internal Medicine
DX: Z12.31 Encounter for screening mammogram for malignant neoplasm of breast (principal)
CPT/HCPCS: 77063; 77067

== ENCOUNTER → 2025-01-25 08:00 | Outpatient (BNV) | payer MEDICARE, SELFPAY | PROVIDERS: PCP Internal Medicine; Visit Provider Internal Medicine | DX: Z12.31 Encounter for screening mammogram for malignant neoplasm of breast (principal) | CPT/HCPCS: 77063; 77067 ==

== ENCOUNTER 2025-02-26 09:23 | Outpatient (REF) | payer MEDICARE, SELFPAY ==
--- NOTE | ~2025-02-26 | MM_ITS ---
EXAMINATION (S): 1. MM DIAGNOSTIC DIGITAL BREAST TOMOSYNTHESIS, RIGHT 2. Targeted ultrasound of the right breast CLINICAL INFORMATION: Callback from screening for right breast focal asymmetry in the upper outer quadrant anterior/middle depth COMPARISON: Comparison made to multiple prior, most recent January 25, 2025, and most remote December 29, 2018. TECHNIQUE: Digital breast tomosynthesis is performed with spot compression tomosynthesis images. FINDINGS: BREAST COMPOSITION: There are scattered areas of fibroglandular density (ACR BI-RADS breast composition Category b). RIGHT BREAST: Previously suggested focal asymmetry in the upper outer quadrant is pliable with spot compression. On today's images, the local parenchyma is similar to multiple prior studies as far back as 2019, therefore, likely represented overlapping fibroglandular breast tissue. Targeted ultrasound of the right breast was performed at the location of the mammographic finding. The survey performed throughout the upper outer quadrant did not reveal suspicious sonographic findings. MM/MM tomosynthesis added views R IMPRESSION: RIGHT BREAST: Negative, no mammographic evidence of malignancy. Normal interval follow-up is recommended in 12 months. ASSESSMENT: BI-RADS 1 - Negative RECOMMENDATION: 1 year F/U Results were provided to the patient at time of visit by the technologist. This patient's information was entered into a reminder system with a target due date for their next mammogram. Electronically signed by: Rafy Mckeon MD 02/26/2025 12:03 PM EDT Workstation: [id number]
--- OUTSIDE RECORDS SUMMARY | 2025-02-26 10:06 | XMS_ITS | Patient Health Record ---
Author Organization [facility] Address [address] [place] [address] Care Team Providers Care Insurance Sales Associate Name Role Phone Beatriz RECIO, Michelle Primary Care Provider Pineda Pena [phone] Allergies Allergen (clinical drug ingredient) Drug/Non Drug [...] Risk Notes Problem Left lower quadrant pain (671615102) Abdominal pain, left lower quadrant (789.04) Active confirmed Problem Colon cancer screening (301634077) Colon cancer screening (V76.51) Active confirmed Problem Chronic constipation (792871049) Chronic constipation (564.00) Active confirmed Plan Of Treatment Future Test Test Name Order Date COLONOSCOPY 05/30/2012 Insurance Providers Payer Name Payer Address Payer Phone Subscriber Number Group Number Insured Name Patient Relationship to Insured Coverage Start Date Coverage End Date [employer] [address] [place] [phone] [id number] SARAH RAYO Self - patient is the insured Medical (General) History Medical History History ICD Code colonoscopy 05-19-2002-neg. constipation lung cancer-RUL Lobectomy chemo in 2006, and recurrence in RML in 2008-being observed Hodgkin's disease--XRT Denies IL,DM,CVA,Lung disease,renal dise ase Hypothyroidism Surgical History Surgery Date(Month/Year) right upper lobe lobectomy as above laparotomy with splenectomy for the Hodg kin's disease hysterectomy with BSO carpal tunnel and wrist surgery
--- OUTSIDE RECORDS SUMMARY | 2025-02-26 10:06 | XMS_ITS | Clinical Summary ---
Author Organization [facility] Address [address] [place] [address] Phone Care Team Providers Care Development Geologist Name Role Phone Rosalia Mota MD Unavailable [...] COVID-19 (Pre-04/15) Moderna Vaccine, mRNA, PF 04/24/2021,08/26/2020,07/29/2020 INFLUENZA, SPLIT VIRUS, TRIV ALENT W/ PRESERVATIVE IM 05/26/2014,03/25/2013,04/10/2010 Influenza High-Dose Quadriva lent Preservative Free IM 04/11/2022 Influenza High-Dose Trivalen t Preservative Free IM 03/26/2019,03/24/2018,03/15/2017,03/18 Influenza Quadrivalent Adjuv anted Preservative Free IM 03/15/2023,04/07/2021,02/25/2020 Influenza, Unspecified Formulation 04/10/2010 Pneumococcal conjugate PCV13 [...] 02/12/2023, 08/0 01/2022, 01/29/2022, Additional history exists TSH LEVEL 08/20/2024 08/20/2023, 01/23, 01/30/2022, Additional history exists INFLUENZA VACCINE (#1) 2025 , 04/11/2022, 04/07/2021, Additional history exists COVID-19 VACCINE ( season) 2025 03/16/2023, 04/24/2021, 08/26/2020, Additional history exists Adult Td,Tdap Booster 02/19/2033 02/19/2023, 012 PNEUMOCOCCAL VACCINES (50+ years) Completed 02/23/2015, 02/13/2013, 04/24/2007 OSTEOPOROSIS SCREENING INITIAL (ONE-TIME) Completed 03/23/2021, 12/03/2017 ZOSTER VACCINES Completed 03/02/2022, 07/1 06/2021, 12/15/2015 RSV VACCINE Completed 03/16/2023 SMOKING STATUS [...] EST) TSH 1.53 0.27 - 4.20 uIU/mL [facility] Blood 08/20/2023 11:0 8 AM EST 08/20/2023 11:12 AM EST us Michelle Hednerson NP LAB BLOOD ORDERABLES Final Resu lt [facility] [address] [place] [address] * (ABNORMAL) Lipid panel (02/12/2023 10:20 AM EDT) HDL 92 mg/dL [facility] Comment: Interpretation <40 mg/dL: Low HDL cholesterol (major risk factor for CHD) Greater than or equal to 60 mg/dL: High HDL cholesterol ( negative risk factor for CHD) HDL - cholesterol is affected by a number of factors, e.g. smoking, excerise, hormones, sex and age. CHOLESTEROL 224 0 - 240 mg/dL [facility] TRIGLYCERIDES 105 30 - 160 mg/dL [facility] LDL 111 50 - 129 mg/dL [facility] Comment: LDL levels in terms of risk for coronary heart disease: <100 mg/dL: Optimal 100-129 mg/dL: Near or above optimal 130-159 mg/dL: Borderline high 160-189 mg/dL: High >190 mg/dL: Very High CARDIAC RISK RATIO 2.4(L) 3.3 - 4.4 C [facility] Blood 02/12/2023 10:2 0 AM EDT 02/12/2023 10:24 AM EDT us Michelle Henderson NP LAB BLOOD ORDERABLES Final Resu lt [facility] [address] [place] [address] * DXA Screening (03/23/2021) Anatomical Region Laterality Modality Bone Density Bone Density us Michelle Henderson NP IMG BD BONE DENSITY DEXA Edited Result - Final from Last 3 Months or Most Recently Relevant to Health Maintenance Insurance MEDICARE PART A & B [facility] MEDICARE REPLACEMENT MEDICARE PART A & B [facility] MEDIC[facility] REPLAC[facility] MEDICARE PART A & B [facility] MEDICARE REPLACEMENT MEDICARE PART A & B [facility] MEDICARE REPLACEMENT MEDICARE PART A & B MEDICARE REPLACEMENT MEDICARE PART A & B MEDICARE REPLACEMENT MEDICARE PART A & B [employer] MEDICARE REPLACEMENT Care Teams Development Geologist Relationship Specialty Start Date End Date Unknown, Unknown, PCP - General 09/16/23 Rosalia Mota MD [facility] [address] [facility] [place] [address] Orthopedic Surgery 08/20/23 Additional Source Comments The information contained in this document represents components of the legal health record. It is not the complete legal health record.[facility]
== END 2025-02-26 09:24 | disposition home or self-care (01) ==
LOC: HO.MAMMO 09:23
PROVIDERS: PCP Internal Medicine; Visit Provider Internal Medicine
DX: N64.89 Other specified disorders of breast (principal)
CPT/HCPCS: 76642; 77061; 77065

== ENCOUNTER → 2025-02-26 09:30 | Outpatient (BNV) | payer MEDICARE, SELFPAY | PROVIDERS: PCP Internal Medicine; Visit Provider Radiology Body Imaging | DX: R92.8 Other abnormal and inconclusive findings on diagnostic imaging of breast (principal) | CPT/HCPCS: 76642; 77065; G0279 ==

== ENCOUNTER 2025-03-22 08:11 | Outpatient (REF) | payer MEDICARE, SELFPAY ==
[2025-03-22 09:57] LABS: MANUAL DIFF FLAG NO
[2025-03-22 10:09] LABS: Hematocrit 42.2 % (37.0-47.0); Hemoglobin 13.9 g/dl (12.0-16.0); Imm Gran Abs Auto 0.01 X10*3/uL (0.00-0.03); Imm Gran Pct Auto 0.2 % (0.0-0.4); Lymphocytes Absolute Auto 2.2 X10*3/uL (1.2-4.9); Mean Corpuscular HGB Conc 32.9 g/dl (31.0-35.0); Mean Corpuscular Hemoglobin 29.9 pg (27.0-33.0); Mean Corpuscular Volume 90.8 fL (80.0-98.0); NRBC Abs Auto 0.000 X10*3/uL (0.0-0.012); NRBC Pct Auto 0.0 /100WBC (0.0-0.2); Platelet Count 383 X10*3/uL (160-400); Red Blood Count 4.65 X10*6/uL (4.20-5.50); White Blood Count 5.4 X10*3/uL (4.8-10.8)
[2025-03-22 10:50] LABS: Alanine Aminotransferase 17 U/L (0-31); Albumin Level 4.3 g/dL (3.5-5.0); Alkaline Phosphatase 61 U/L (39-117); Anion Gap 12 (12-20); Aspartate Amino Transferase 30 U/L (5-31); Blood Urea Nitrogen 17 mg/dL (9-16); Calcium 9.0 mg/dL (8.4-10.2); Carbon Dioxide 27 mmol/L (22-29); Chloride 107 mmol/L (96-108); Cholesterol 213 mg/dL (<200); Estimated Glomerular Filt Rate > 60; HDL Cholesterol 68 mg/dL (>40); Potassium 4.2 mmol/L (3.3-5.1); Sodium 142 mmol/L (135-145); Total Protein 6.9 g/dL (6.5-8.0); Triglycerides 126 mg/dL (<150)
[2025-03-22 11:47] LABS: Free T4 (Free Thyroxine) 1.36 ng/dL (0.71-1.85)
== END 2025-03-22 08:12 | disposition home or self-care (01) ==
LOC: HO.HMGCLDS 08:11
PROVIDERS: PCP Internal Medicine; Visit Provider Internal Medicine
DX: M62.81 Muscle weakness (generalized) (principal); E78.5 Hyperlipidemia, unspecified; E03.9 Hypothyroidism, unspecified; K22.89 Other specified disease of esophagus
CPT/HCPCS: 36415; 80053; 80061; 82550; 84439; 84443; 85025

== ENCOUNTER 2025-03-24 09:58 | Outpatient (AMB) | payer MEDICARE, SELFPAY ==
[2025-03-24 10:06] VITALS: BP 124/62; PULSE 94; RESP 19; TEMP 36.6; O2SAT 97; BMI 20.6
--- NOTE | 2025-03-24 10:06 | MHC.PC.OV ---
Vital Signs 03/24/25 10:06 Height 4 ft 11 in Weight 102 lb BMI 20.6 BP 124/62 Blood Pressure Location Lt brachial Position Sitting Respiration 19 Pulse 94 Pulse Source Pulse Oximeter Temp 97.8 F Temp Source Oral Pulse Oximetry (%) 97 Oxygen Delivery Method Room Air Intake Visit Reasons: 6 Month follow up Intake Note: Pt is here today for 6 months follow up visit on labs. Allergies codeine (CODEINE) Allergy (Severe, Verified 03/24/25 10:07) HYPOTENSION morphine (MORPHINE) Allergy (Severe, Verified 03/24/25 10:07) hives,HYPOTENSION acetaminophen (Percocet) Allergy (Unknown, Verified 03/24/25 10:07) Vomiting oxycodone (From Percocet) Adverse Reaction (Mild, Verified 03/24/25 10:07) VOMITING Medication List - Last Reconciled 03/24/25 by Ida Carpenter MD albuterol sulfate 90 mcg/actuation 1 puff PO Q4-6H PRN escitalopram oxalate 10 mg PO DAILY esomeprazole magnesium 20 mg PO DAILY 90 days latanoprost 0.005% 1 drp ophthalmic (eye) BEDTIME levothyroxine Take 1-1/2 tablet one day a week and 1 tablet daily for the rest of the week orally ; pravastatin 20 mg PO DAILY Tobacco use date assessed: 03/24/25 Fall risk assessment: 2 + Falls in past year Last assessed Fall Risk: 03/24/25 Dental Screening Dental Screen Date: 10/06/24 HPI 6 Month follow up HPI Details Pt presents for hypothyroid, hyperlipid, stable on meds. Patient complains of chronic lower back pain radiating to both extremities and had 2 falls in the last 4 months tripping over. She denies any change in bowel or bladder function but reports general muscle weakness mainly in lower extremities and more difficulties with the balance. She has not been exercising regularly. [facility] Medical History (Updated 03/24/25 @ 14:30 by Ida Carpenter MD) Compression fracture of body of thoracic vertebra Mass of esophagus Gastric ulcer Osteopenia Anemia History of Hodgkin's lymphoma History of lung cancer Multiple pulmonary nodules Emphysema of lung Shortness of breath Jaw pain, non-TMJ Depression Hypothyroidism Surgical History Hx of colonoscopy History of esophagogastroduodenoscopy (EGD) History of back surgery S/P right rotator cuff repair Family History Mother No problems noted. Father Substance use disorder Father No problems noted. Brother Dementia Sister Dementia Social History Household Members Other:: 83 Housing: House Alcohol intake: current Alcohol intake frequency: does not drink Alcohol type: wine Patient Tobacco Use Status: Never used Tobacco e-Cigarette/Vaping Use: Never Used service: No Current occupational status: retired Cognitive needs: No Hearing needs: Yes Vision needs: Yes Questionnaire PHQ-9 Over the last 2 weeks, how often have you been bothered by any of the following problems? 1. Little interest or pleasure in doing things: not at all 2. Feeling down, depressed, or hopeless: not at all 3. Trouble falling or staying asleep, or sleeping too much: not at all 4. Feeling tired or having little energy: not at all 5. Poor appetite or overeating: not at all 6. Feeling bad about yourself - or that you are a failure or have let yourself or your family down: not at all 7. Trouble concentrating on things, such as reading the newspaper or watching television: not at all 8. Moving or speaking so slowly that other people could have noticed. Or the opposite - being so fidgety or restless that you have been moving around a lot more than usual: not at all 9. Thoughts that you would be better off or of hurting yourself in some way: not at all Total score: 0 Depression Screening Interpretation: Negative Depression Screening Done: Yes Source: Developed by Drs. Pineda Narayanan, Guillermina Hernandez, Spenser Meneses and colleagues, with an educational ana from [employer]. Thrive Questionnaire Date Thrive assessed: 10/06/24 I am a: Patient What is your living situation today?: I have a steady place to live Within the past 12 months, did the food you bought not last and you didn't have the money to get more?: Often true Within the past 12 months, did you worry whether your food would run out before you got money to buy more?: Often true Do you have trouble paying for medicines?: No Do you have trouble getting transportation to medical appointments?: No Do you have trouble paying your heating and electricity bill?: No Do you have trouble taking care of your child, family member or friend?: No Do you have trouble with day-to-day activities such as bathing, preparing meals, shopping, managing finances, etc.?: No Are you currently unemployed and looking for a job?: No Are you interested in more education?: No Please select the resources that you would like help with: None Currently or been in a relationship where the following occur: No concerns reported THRIVE Score: 2 AUDIT C Alcohol Use Questionnaire (AUDIT-C) 1. How often do you have a drink containing alcohol?: 2-3 times a week 2. How many drinks containing alcohol do you have on a typical day when you are drinking?: 1 or 2 3. How often do you have six or more drinks on one occasion?: Never Total Score: 3 BRODERICK-7 AMB Questionnaire BRODERICK-7 Date BRODERICK - 7 assessed: 10/06/24 Feeling nervous, anxious, or on edge: 0 = Not at all Not being able to stop or control worryin = Not at all Worrying too much about different things: 0 = Not at all Trouble relaxin = Not at all Being so restless that it is hard to sit still: 0 = Not at all Becoming easily annoyed or irritable: 0 = Not at all Feeling afraid as if something awful might happen: 0 = Not at all Total BRODERICK-7 score (0-4 normal; 5-9 mild; 10-14 moderate; 15-21 severe): 0 Source: Developed by Drs. Pineda Narayanan, Guillermina Hernandez, Spenser Meneses and colleagues, with an educational ana from [employer]. Review of Systems Const All systems reviewed & are unremarkable except as noted in HPI and below Eyes Reports no additional complaints ENT Reports no additional complaints Card Reports no additional complaints Resp Reports no additional complaints GI Reports no additional complaints Reports no additional complaints Physical exam (Primary Care) Vital Signs: Last Vital Signs Temp 97.8 F 03/24/25 10:06 Pulse 94 03/24/25 10:06 Resp 19 03/24/25 10:06 BP 124/62 03/24/25 10:06 Pulse Ox 97 03/24/25 10:06 Oxygen Delivery Method Room Air 03/24/25 10:06 BMI result Body Mass Index 20.6 Tobacco/Smoking Status: Tobacco use Status Tobacco use date assessed 03/24/25 03/24/25 10:07 Patient Tobacco Use Status Never used Tobacco 03/24/25 10:07 e-Cigarette/Vaping Use Never Used 03/24/25 10:07 PHQ-9: PHQ-9 Score PHQ-9: Total score 0 03/24/25 10:39 Depression Screening Interpretation: Negative Thrive Assessment: Date of Thrive Assessment Date Thrive assessed 10/06/24 03/24/25 10:07 Currently or been in a relationship where the following occur: No concerns reported Const General: no acute distress HENMT Head: Yes normal to inspection Mouth: Normal oral and palatal mucosa present Eyes General: appearance normal, both eyes and all related structures Neck Neck: Yes supple Resp Effort & Inspection: normal respiratory effort Auscultation: clear to auscultation bilaterally Cardio Rhythm: regular rhythm Heart sounds: S1 normal heart sound present and S2 normal heart sound present GI Inspection: Yes normal to inspection Palpation (GI): Soft to palpation Percussion: Yes normal to percussion Auscultation: normal bowel sounds Neuro Other: Motor strength 4/5 symmetrical in 4 extremities Cranial nerves: Yes CN's II-XII intact bilaterally Motor exam (neuro): Other motor observations present (Motor strength 4/5 in 4 extremities) Coordination: [id number] test normal Romberg Test: Negative Extrem General: Yes no clubbing, cyanosis or edema Coding Level of Care Code Est Pt Level 4 (79378) Diagnoses Leg weakness, bilateral R29.898 Sciatica M54.30 Hyperlipidemia E78.5 Hypothyroidism E03.9 Multiple pulmonary nodules R91.8 Compression fracture of body of thoracic vertebra S22.000A Assessment & Plan Assessment & Plan (1) Leg weakness, bilateral: Code(s): R29.898 - Other symptoms and signs involving the musculoskeletal system Category: Medical Plan: Referred to physical therapy (2) Sciatica: Code(s): M54.30 - Sciatica, unspecified side Category: Medical Plan: Referred to physical therapy (3) Hyperlipidemia: Code(s): E78.5 - Hyperlipidemia, unspecified Category: Medical Plan: Continue statin (4) Hypothyroidism: Code(s): E03.9 - Hypothyroidism, unspecified Category: Medical Plan: Continue levothyroxine monitor TSH, follow-up in 6 months with a fasting labs before (5) Multiple pulmonary nodules: Comment: Chest CT 09/2023 S/P RUL lobectomy, small pul nodules, mild emphysema, CT 08/2024 s/p right upper lobectomy question of residual versus recurrent disease, stable 2-3 cm bilateral nodules unchanged from previous, compression fracture of vertebral body Code(s): R91.8 - Other nonspecific abnormal finding of lung field Category: Medical Plan: Patient has been getting annual CT to follow-up on small bilateral nodule unchanged from 2019, questionable need for continuos surveillance (6) Compression fracture of body of thoracic vertebra: Comment: , a new finding on CT 08/2024, patient declined treatment for osteoporosis 02/2025 Code(s): S22.000A - Wedge compression fracture of unspecified thoracic vertebra, initial encounter for closed fracture Category: Medical Plan: Continue regular exercise and vitamin-D supplement Orders: Orders Triiodothyronine T3 Free 6 Months E03.9 - Hypothyroidism, unspecified, E78.5 - Hyperlipidemia, unspecified PT Evaluation and Treatment Today M54.30 - Sciatica, unspecified side, R29.898 - Other symptoms and signs involving the musculoskeletal system Comprehensive [place]. Panel Fast 6 Months E03.9 - Hypothyroidism, unspecified, E78.5 - Hyperlipidemia, unspecified Complete Blood Count Auto Diff 6 Months E03.9 - Hypothyroidism, unspecified, E78.5 - Hyperlipidemia, unspecified TSH reflex Free T4 6 Months E03.9 - Hypothyroidism, unspecified, E78.5 - Hyperlipidemia, unspecified Vitamin B12 and Folate 6 Months M54.30 - Sciatica, unspecified side
--- OUTSIDE RECORDS SUMMARY | 2025-03-24 11:10 | XMS_ITS | Clinical Summary ---
Author Organization [facility] Address [address] [place] [address] Phone Care Team Providers Care Gold Wheel Blocker And Polisher Name Role Phone Rosalia Mota MD Unavailable [...] EST) TSH 1.53 0.27 - 4.20 uIU/mL [facility] Blood 08/20/2023 11:0 8 AM EST 08/20/2023 11:12 AM EST us Michelle Henderson NP LAB BLOOD ORDERABLES Final Resu lt [facility] [address] [place] [address] * (ABNORMAL) Lipid panel (02/12/2023 10:20 AM EDT) HDL 92 mg/dL [facility] Comment: Interpretation <40 mg/dL: Low HDL cholesterol (major risk factor for CHD) Greater than or equal to 60 mg/dL: High HDL cholesterol ( negative risk factor for CHD) HDL - cholesterol is affected by a number of factors, e.g. smoking, excerise, hormones, sex and age. CHOLESTEROL 224 0 - 240 mg/dL [facility] TRIGLYCERIDES 105 30 - 160 mg/dL [facility] LDL 111 50 - 129 mg/dL [facility] Comment: LDL levels in terms of risk for coronary heart disease: <100 mg/dL: Optimal 100-129 mg/dL: Near or above optimal 130-159 mg/dL: Borderline high 160-189 mg/dL: High >190 mg/dL: Very High CARDIAC RISK RATIO 2.4(L) 3.3 - 4.4 C [facility] Blood 02/12/2023 10:2 0 AM EDT 02/12/2023 10:24 AM EDT us Michelle Henderson NP LAB BLOOD ORDERABLES Final Resu lt [facility] [address] [place] [address] * DXA Screening (03/23/2021) Anatomical Region Laterality Modality Bone Density Bone Density us Michelle Henderson NP IMG BD BONE DENSITY DEXA Edited Result - Final from Last 3 Months or Most Recently Relevant to Health Maintenance Insurance MEDICARE PART A & B [facility] MEDICARE REPLACEMENT MEDICARE PART A & B [facility] MEDICARE REPLACEMENT MEDICARE PART A & B [facility] MEDICARE REPLACEMENT MEDICARE PART A & B [facility] MEDICARE REPLACEMENT MEDICARE PART A & B [facility] MEDICARE REPLACEMENT MEDICARE PART A & B [facility] MEDICARE REPLACEMENT MEDICARE PART A & B MEDICARE REPLACEMENT MEDICARE PART A & B MEDICARE REPLACEMENT MEDICARE PART A & B [employer] P[employer] MEDICARE REPLACEMENT Care Teams Gold Wheel Blocker And Polisher Relationship Specialty Start Date End Date Unknown, Unknown, PCP - General 09/16/23 Rosalia Mota MD [facility] [address] [facility] [place] [address] Orthopedic Surgery 08/20/23 Additional Source Comments The information contained in this document represents components of the legal health record. It is not the complete legal health record.[facility]
--- OUTSIDE RECORDS SUMMARY | 2025-03-24 11:10 | XMS_ITS | Data Portability ---
Author Organization [place] - [facility], [facility] Address [address] [place] [address] Care Team Providers Care Front Office Associate Name Role Phone JAVIER AMBROCIO Primary Care Provider [phone] Assessment Encounter Date Assessment Date Assessment LastModified by Organization Details LastModified Time 01/19/2025 01/19/2025 1. Esophageal Dysphagia The patient has esophageal dysphagia, showing improvement post-esophageal dilation. Symptoms may recur which will warrant potential future dilations and monitoring for aspiration risks. Fiberoptic laryngoscopy was benign 2. History of Hodgkin's Lymphoma Treated with Radiation Previous lymphoma treatment resulted in esophageal and oropharyngeal complications; continued vigilance for recurrence is important, although no current findings suggests malignancy. 3. Post-Esophageal Dilation Condition post-esophageal dilation remains with episodic symptoms. Further intervention might be planned if symptomatic improvement is not sustained. 4. hearing loss Patient is interested in repeating hearing test after the New Year and pursuing new hearing aids. Previous were from [place] a few years ago [email or web address] Not available 01/19/2025 14:16:34 Plan of Treatment Reminders Order Date Submit Date Provider Last Modified By Organization Details Last Modified Time Details Appointments None record ed. Lab None record ed. Referral None record ed. Procedures None record ed. Surgeries None record ed. Imaging None record ed. Medication Orders None record ed. Patient TargetsNo targets recorded. Patient Instructions Encounter Date Encounter Id Patient Instructions Last Modified By Organization Details Last Modified Time 01/19/2025 [id number] Please note: Parts of this encounter note have been generated by AI based on audio conversation. Patient consent was required prior to utilizing this technology. Content review was required prior to finalizing the note. [email or web address] Not available 01/19/2025 14:14:38 Reason for Referral None Reported. Problems Name Problem SNOMED Code Status Onset Date Resolution Date Notes Provider Name and Address Organization Details Recorded Time Dysphagia 41452439 Active 2024 URVASHI COLLAZO MD [address] [facility],[address] [address], [place], [address], [facility] 14:14:35 Sensorineural hearing loss of bilateral ears 563617707 Active 2024 URVASHI COLLAZO MD [address] [address], [place], [address], [facility] 14:14:46 Problem Notes None recorded. Procedures Surgical History Date Name Laterality Status Provider Name and Address Organization Details Recorded Time 01/19/2025 FOL_DP completed URVASHI COLLAZO MD [address] [address], [place], [address], [facility] 01/19/2025 14:13:14 Imaging Results None recorded. Procedure Notes None recorded. Medical Equipment None Reported. Allergies Allergen ID Allergen Name Allergen Category Reaction Reaction Severity Criticality Documentation Date Start Date Code Code System Note Provider Name and Address Organization Details Recorded Time 305646 morphine medicatio n Not available Not available Not available 01/19/2025 7052 RxNorm ABE kendall [facility] 13:52:38 568521 acetamino phen / oxycodone medicatio n Not available Not available Not available 01/19/2025 28103 3 RxNorm ABE kendall [facility] 13:52:47 Medications Name Sig Start Date Stop Date Status Note LastModified by Organization Details LastModified Time esomeprazol e magnesium 40 mg capsule,del ayed release TAKE 1 CAPSULE DAILY active Not Available Not Available No t Available Synthroid 88 mcg tablet TAKE 1 AND 1/2 TABLETS ONE DAY A WEEK AND TAKE 1 TABLET DAILY FOR THE REST OF THE WEEK active Not Available Not Available No t Available pravastatin 20 mg tablet TAKE 1 TABLET DAILY active Not Available Not Available No t Available albuterol sulfate HFA 90 mcg/actuati on aerosol inhaler INHALE 1 PUFF BY MOUTH EVERY 4 TO 6 HOURS NEEDED FOR SHORTNESS OF BREATH OR WHEEZING active Not Available Not Available No t Available naproxen 500 mg tablet TAKE 1 TABLET TWICE A DAY FOR 7 DAYS active Not Available Not Available No t Available esomeprazol e magnesium 20 mg capsule,del ayed release TAKE 1 CAPSULE DAILY 01/19 completed Not Available Not Available Not Available escitalopra m 10 mg tablet TAKE 1 TABLET DAILY active Not Available Not Available No t Available Myrbetriq 25 mg tablet,exte nded release TAKE 1 TABLET DAILY active Not Available Not Available No t Available Vitals Date Recorded Body height Body mass index (BMI) Body weight Provider Name and Address Organization Details Last Updated DateTime 01/19/2025 149.86 cm 19.6 kg/m2 04327.[facility] 01/19/2025 13:50:53 Social History None recorded. Functional Status Question Answer Note LastModified by Organizat ion Details LastModified Time What is your level of alcohol consumption? Occasional ccomi Information not available 01/19/2025 Mental Status None recorded. Family History Nothing Reported. Medical History Condition Response Cancer Y Thyroid Problems Y Gynecological HistoryNo gynecological history recorded. Obstetrics History GPAL:G 0 P 0 0 0 0 Past Encounters Encounter ID Performer Location Encounter Start Date Encounter Closed Date Diagnosis/Indication Diagnosis SNOMED-CT Code Diagnosis ICD10 Code Diagnosis IMO Codes Diagnosis Note [id number] URVASHI COLLAZO MD [facility] [address] [address] 01/19/2025 13:10:40 01/19/2025 14:18:59 Dysphagia 92213429 R13.14 756866 Sensorineu ral hearing loss of bilateral ears 328487988 H90.3 789876 History of Hodgkin lymphoma 871080034 Z85.71 7596378 Health Concerns Section Related Observation LastModified by Organization Detai ls LastModified Time None Recorded Concern Status LastModified by Organization Details LastModified Time None Recorded Advance Directives Directive None Recorded Payers Insurance Date Sequence Insurance Name Policy Number Policy Pate Covered Member ID Pate Member ID Guarantor Name 01/19/2025 1 [employer] (MEDICARE REPLACEMENT /ADVANTAGE - PPO) [id number] 2 Agnes Joseph [id number] Agnes Joseph Notes Date Note Type Note Provider Name and Address Organization Details Recorded Time 01/19/2025 text/html Dysphagia 11/19/2024 upper endoscopy 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 Trace tracheal penetration, no subglottic aspiration 2. Mild posterior indentation of cervical esophagus due to a small bridging anterior osteophyte. 3. Granular appearance of the esophageal mucosa suggestive of esophagitis. Multiple filling defect in the proximal one third of the esophagus 4. Moderate esophageal dysmotility 5. Small type I hiatal hernia with severe gastroesophageal reflux Past medical history: Hodgkin lymphoma status post radiation History of lung cancer status post lobectomy The patient is an 79-year-old female presenting with persistent esophageal dysphagia characterized by choking and vomiting episodes, severe during nights in a supine position. She has a detailed history of upper endoscopy and esophageal dilation revealing strictures attributed to prior radiation therapy for Hodgkin's Lymphoma, which also contributed to subsequent lung cancer. Radiotherapy altered oropharyngeal structures, affecting swallowing and enhancing choking risk. Previous barium swallow studies earlier confirmed esophageal narrowing, supporting recent dilation interventions. The condition shows partial improvements, necessitating potential future re-evaluations and interventions. URVASHI COLLAZO MD [address] [place] [address], [phone], [place] - [facility] 01/19/2025 14:16:51 OBGyn Episode No OBEpisode recorded.
--- OUTSIDE RECORDS SUMMARY | 2025-03-24 11:10 | XMS_ITS | Patient Health Record ---
Author Organization [facility] Address [address] [place] [address] Care Team Providers Care Leaf Conditioner Helper Name Role Phone Beatriz RECIO, Michelle Primary Care Provider Pineda Pena [phone] Allergies Allergen (clinical drug ingredient) Drug/Non Drug [...] Risk Notes Problem Left lower quadrant pain (143433361) Abdominal pain, left lower quadrant (789.04) Active confirmed Problem Colon cancer screening (370519990) Colon cancer screening (V76.51) Active confirmed Problem Chronic constipation (379310206) Chronic constipation (564.00) Active confirmed Plan Of Treatment Future Test Test Name Order Date COLONOSCOPY 05/30/2012 Insurance Providers Payer Name Payer Address Payer Phone Subscriber Number Group Number Insured Name Patient Relationship to Insured Coverage Start Date Coverage End Date Aetna [address] [place] [phone] [id number] SARAH RAYO Self - patient is the insured Medical (General) History Medical History History ICD Code colonoscopy 05-19-2002-neg. constipation lung cancer-RUL Lobectomy chemo in 2006, and recurrence in RML in 2008-being observed Hodgkin's disease--XRT Denies [place],DM,CVA,Lung disease,renal dise ase Hypothyroidism Surgical History Surgery Date(Month/Year) right upper lobe lobectomy as above laparotomy with splenectomy for the Hodg kin's disease hysterectomy with BSO carpal tunnel and wrist surgery
== END 2025-03-24 10:54 | disposition home or self-care (01) ==
LOC: HO.HMCC 09:59
PROVIDERS: PCP Internal Medicine; Visit Provider Internal Medicine
DX: M54.31 Sciatica, right side (principal); M54.32 Sciatica, left side; S22.000A Wedge compression fracture of unspecified thoracic vertebra, initial encounter for closed fracture; R29.898 Other symptoms and signs involving the musculoskeletal system; E78.5 Hyperlipidemia, unspecified; E03.9 Hypothyroidism, unspecified; R91.8 Other nonspecific abnormal finding of lung field

== ENCOUNTER → 2025-03-24 09:58 | Outpatient (BNVA) | payer MEDICARE, SELFPAY | PROVIDERS: PCP Internal Medicine; Visit Provider Internal Medicine | DX: E03.9 Hypothyroidism, unspecified (principal); E78.5 Hyperlipidemia, unspecified; R29.898 Other symptoms and signs involving the musculoskeletal system; M54.30 Sciatica, unspecified side; R91.8 Other nonspecific abnormal finding of lung field; S22.000A Wedge compression fracture of unspecified thoracic vertebra, initial encounter for closed fracture; X58.XXXA Exposure to other specified factors, initial encounter; Y93.9 Activity, unspecified; Y92.9 Unspecified place or not applicable; Y99.9 Unspecified external cause status; Z79.899 Other long term (current) drug therapy | CPT/HCPCS: 96127; 99212 ==

== ENCOUNTER 2025-04-27 10:54 | Outpatient (AMB) | payer MEDICARE, SELFPAY ==
[2025-04-27 11:00] VITALS: BP 112/58; PULSE 81; O2SAT 96; BMI 20.8
--- NOTE | 2025-04-27 11:00 | A.OFFVIS_ITS ---
Vital Signs 04/27/25 11:00 Height 4 ft 11 in Weight 103 lb BMI 20.8 BP 112/58 L Blood Pressure Location Rt brachial Position Sitting Pulse 81 Pulse Source Pulse Oximeter Pulse Oximetry (%) 96 Oxygen Delivery Method Room Air Intake Visit Reasons: Shortness of breath Allergies codeine (CODEINE) Allergy (Severe, Verified 04/27/25 11:03) HYPOTENSION morphine (MORPHINE) Allergy (Severe, Verified 04/27/25 11:03) hives,HYPOTENSION acetaminophen (Percocet) Allergy (Unknown, Verified 04/27/25 11:03) Vomiting oxycodone (From Percocet) Adverse Reaction (Mild, Verified 04/27/25 11:03) VOMITING HPI HPI Shortness of breath: Details: Agnes is a pleasant 80 year old female, never smoker, with h/o Hodgkin's lymphoma s/p chest radiation 25+ years ago, h/o lung cancer s/p right upper lobectomy and hypothyroidism. At the last visit patient was prescribed albuterol MDI PRN as there was evidence of small airways disease on PFT and she has been using PRN with good effect. She continues to report intermittent dyspnea however resolves with the use of albuterol. Denies wheezing or chest tightness. Previously discussed initiating ICS, but she is apprehensive. Since the last visit, she was evaluated by GI and underwent esophageal dilation with improvements in dysphagia/cough while eating, although feels symptoms are recurring. She does not have a follow up with GI scheduled. She was also evaluated by ENT for ongoing dysphonia, which workup was reportedly unremarkable. She denies any visits to urgent care or hospitalizations related to respiratory distress. [facility] Medical History (Updated 03/24/25 @ 14:30 by Ida Carpenter MD) Compression fracture of body of thoracic vertebra Mass of esophagus Gastric ulcer Osteopenia Anemia History of Hodgkin's lymphoma History of lung cancer Multiple pulmonary nodules Emphysema of lung Shortness of breath Jaw pain, non-TMJ Depression Hypothyroidism Surgical History (Updated 03/24/25 @ 10:47 by Ida Carpenter MD) Hx of colonoscopy History of esophagogastroduodenoscopy (EGD) History of back surgery S/P right rotator cuff repair Family History Mother No problems noted. Father Substance use disorder Father No problems noted. Brother Dementia Sister Dementia Social History Household Members Other:: 83 Housing: House Alcohol intake: current Alcohol intake frequency: does not drink Alcohol type: wine Patient Tobacco Use Status: Never used Tobacco e-Cigarette/Vaping Use: Never Used service: No Current occupational status: retired Cognitive needs: No Hearing needs: Yes Vision needs: Yes Review of Systems Const Denies chills, Denies excessive sweating, Denies fever(s), Denies headache(s) and Denies night sweats Eyes Denies dry eyes, Denies irritation and Denies itchy eyes ENT Reports Normal hearing present, Denies headache(s), Reports nasal congestion and Denies nasal discharge Card Denies chest pain, Denies chest pain at rest, Denies chest pain with activity, Denies claudication, Denies leg edema, Reports dyspnea on exertion, Denies orthopnea and Denies paroxysmal nocturnal dyspnea Resp Denies chest congestion, Reports cough, Denies excessive phlegm production, Denies pain on inspiration, Denies pain with cough, Reports dyspnea on exertion, Denies stridor and Denies wheezing Musc Denies myalgias Neuro Reports Normal hearing present and Denies headache(s) Endo Denies excessive sweating Jayro/Lymph Denies lymphadenopathy Aller/Immun Denies itchy eyes, Denies seasonal rhinorrhea and Denies wheezing Physical Exam Vital Signs: Last Vital Signs Pulse 81 04/27/25 11:00 BP 112/58 L 04/27/25 11:00 Pulse Ox 96 04/27/25 11:00 Oxygen Delivery Method Room Air 04/27/25 11:00 BMI result Body Mass Index 20.8 Const General: cooperative, healthy appearing, comfortable, no acute distress and alert Orientation/consciousness: patient oriented x3 Limitations: no limitations HEENT Head: Yes normal to inspection, Yes normocephalic and Yes atraumatic Ears: hearing grossly normal bilaterally and external ears normal Mouth: moist mucous membranes abnormal (d/t prior radiation) Eyes General: appearance normal, both eyes and all related structures Eyelids: Yes eyelids normal Sclerae: sclerae normal EOM: EOMs intact bilaterally Neck Neck: Yes normal visual inspection and Yes no lymphadenopathy Lymphatic: no lymphadenopathy noted Chest Chest palpation & inspection: normal inspection of the chest Resp Effort & Inspection: normal respiratory effort, able to speak in complete sentences, no audible wheezes, no cough, no stridor, not tachypneic, no tripod positioning and no use of accessory muscles Auscultation: clear to auscultation bilaterally Cardio Jugular venous distension: no JVD Rate: regular rate Rhythm: regular rhythm Skin Other: warm, dry General skin exam: no rashes or lesions noted Neuro General: patient oriented x3 Cranial nerves: Yes Normal hearing present Cognition (Neuro): normal cognition Gait exam (Neuro): Normal gait present Extrem General: Yes normal to inspection, Yes capillary refill normal, Yes no clubbing, cyanosis or edema and Yes no pedal edema Psych Appearance: grossly normal and well kempt Speech and movement: Normal speech and movement present and Clear speech present Affect: normal affect Attitude: cooperative Thought process: Normal thought process present Thought content: Normal thought content present Insight: Good insight present (Psych) Judgement: Good judgement present (Psych) Assessment & Plan Assessment & Plan (1) Shortness of breath: Comment: negative nuclear stress test 09/2023, PFT nl 04/2024 Code(s): R06.02 - Shortness of breath Category: Medical (2) History of lung cancer: Comment: 2007, lobectomy and chemotherapy Code(s): Z85.118 - Personal history of other malignant neoplasm of bronchus and lung Category: Medical (3) History of Hodgkin's lymphoma: Comment: s/p RTX 1990 Code(s): Z85.71 - Personal history of Hodgkin lymphoma Category: Medical (4) Status post radiation therapy: Comment: for Hodgkin's lymphoma 2B 1990 Code(s): Z92.3 - Personal history of irradiation Category: Surgical (5) Emphysema of lung: Comment: Mild on CT of the chest 09/2023 Code(s): J43.9 - Emphysema, unspecified Category: Medical (6) Multiple pulmonary nodules: Comment: Chest CT 09/2023 S/P RUL lobectomy, small pul nodules, mild emphysema, CT 08/2024 s/p right upper lobectomy question of residual versus recurrent disease, stable 2-3 cm bilateral nodules unchanged from previous, compression fracture of TH 12 vertebral body Code(s): R91.8 - Other nonspecific abnormal finding of lung field Category: Medical Plan Agnes reports relief of dyspnea with use of albuterol MDI, PFT suggestive of small airways disease, which she has been using with good effect. Again discussed ICS/LABA however she would like to hold off. Reviewed adverse effects of excessive albuterol. Discussed continued dysphagia and cough while eating, recommended follow up with GI. All questions were answered and patient is in agreement of plan. Will follow up in 3-6 months or sooner if needed. Coding Level of Care Code Est Pt Level 4 (32071) Diagnoses Shortness of breath R06.02 History of lung cancer Z85.118 History of Hodgkin's lymphoma Z85.71 Status post radiation therapy Z92.3 Emphysema of lung J43.9 Multiple pulmonary nodules R91.8
--- OUTSIDE RECORDS SUMMARY | 2025-04-27 13:10 | XMS_ITS | Data Portability ---
Author Organization [place] - [facility], [facility] Address [address] [place] [address] Care Team Providers Care Hook And Eye Machine Operator Name Role Phone JAVIER AMBROCIO Primary Care Provider Assessment Encounter Date Assessment Date Assessment LastModified [...] pursuing new hearing aids. Previous were from [place] a few years ago [email or web address] Not available [...] By Organization Details Last Modified Time 01/19/2025 [id number] Please note: Parts of this encounter note [...] and Address Organization Details Recorded Time Dysphagia 40516606 Active 2024 URVASHI COLLAZO MD [address] [facility],[address] [address], [place], [address], [facility] 14:14:35 Sensorineural hearing loss of bilateral ears 217476124 Active 2024 URVASHI COLLAZO MD [address] [address], [place], [address], [facility] 14:14:46 Problem Notes None recorded. Procedures Surgical History Date Name Laterality Status Provider Name and Address Organization Details Recorded Time 01/19/2025 FOL_DP completed URVASHI COLLAZO MD [address] [address], [place], [address], [facility] 01/19/2025 14:13:14 Imaging Results None recorded. Procedure Notes None recorded. Medical Equipment None Reported. Allergies Allergen ID Allergen Name Allergen Category Reaction Reaction Severity Criticality Documentation Date Start Date Code Code System Note Provider Name and Address Organization Details Recorded Time 495586 morphine medicatio n Not available Not available Not available 01/19/2025 7052 RxNorm ABE kendall [facility] 13:52:38 594516 acetamino phen / oxycodone medicatio n Not available Not available Not available 01/19/2025 44163 3 RxNorm ABE kendall [facility] 13:52:47 Medications Name Sig Start Date Stop [...] Updated DateTime 01/19/2025 149.86 cm 19.6 kg/m2 68479.46 [facility] 01/19/2025 13:50:53 Social History None recorded. Functional [...] ICD10 Code Diagnosis IMO Codes Diagnosis Note [id number] URVASHI COLLAZO MD [facility] [address] [address] 01/19/2025 13:10:40 01/19/2025 14:18:59 Dysphagia 65486667 R13.14 983782 Sensorineu ral hearing loss of bilateral ears 157126877 H90.3 541374 History of Hodgkin lymphoma 630585104 Z85.71 3571506 Health Concerns Section Related Observation LastModified by Organization Detai ls LastModified Time None Recorded Concern Status LastModified by Organization Details LastModified Time None Recorded Advance Directives Directive None Recorded Payers Insurance Date Sequence Insurance Name Policy Number Policy Pate Covered Member ID Pate Member ID Guarantor Name 01/19/2025 1 [employer] (MEDICARE REPLACEMENT /ADVANTAGE - PPO) [id number] 2 Agnes Joseph [id number] Agnes Joseph Notes Date Note Type Note [...] future re-evaluations and interventions. URVASHI COLLAZO MD [address] [place] [address], [address], [place] - [facility] 01/19/2025 14:16:51 OBGyn Episode No OBEpisode recorded.
--- OUTSIDE RECORDS SUMMARY | 2025-04-27 13:10 | XMS_ITS | Patient Health Record ---
Author Organization [facility] Address [address] [place] [address] Care Team Providers Care Supervisor Paper Products Name Role Phone Beatriz RECIO, Michelle Primary Care Provider Pineda Pena [phone] Allergies Allergen (clinical drug ingredient) Drug/Non Drug Allergy documented on EMR Reaction Allergy Type Onset Date Status acetaminophen / oxycodone Percocet Unknown Drug Allergy Active ? Morphine (uncoded) Unknown Allergy Active Reason For Referral No Information Medications Medication SIG (Take, Route, Frequency, Duration) Notes Start Date End Date Status Colyte with Flavor Packs 240 GM As directed Orally once; Duration: 1 day(s) 05/30/2012 Active Synthroid 06/24/2024 06/24/2024 Active Problems Problem Type SNOMED Code ICD Code Onset Dates Problem Status W/U Status Risk Notes Problem Left lower quadrant pain (075298984) Abdominal pain, left lower quadrant (789.04) Active confirmed Problem Colon cancer screening (619775653) Colon cancer screening (V76.51) Active confirmed Problem Chronic constipation (008236248) Chronic constipation (564.00) Active confirmed Plan Of Treatment Future Test Test Name Order Date COLONOSCOPY 05/30/2012 Insurance Providers Payer Name Payer Address Payer Phone Subscriber Number Group Number Insured Name Patient Relationship to Insured Coverage Start Date Coverage End Date A[employer] [address] [place] [phone] [id number] SARAH RAYO Self - patient is the insured Medical (General) History Medical History History ICD Code colonoscopy 05-19-2002-neg. constipation lung cancer-RUL Lobectomy wy chemo in 2006, and recurrence in RML in 2007-being observed Hodgkin's disease--XRT Denies [place],DM,CVA,Lung disease,renal dise ase Hypothyroidism Surgical History Surgery Date(Month/Year) right upper lobe lobectomy as above laparotomy with splenectomy for the Hodg kin's disease hysterectomy with BSO carpal tunnel and wrist surgery
== END 2025-04-27 11:31 | disposition home or self-care (01) ==
LOC: HO.HPSW 10:54
PROVIDERS: PCP Internal Medicine; Visit Provider Nurse Practitioner Family
DX: R06.02 Shortness of breath (principal); Z85.118 Personal history of other malignant neoplasm of bronchus and lung; Z85.71 Personal history of Hodgkin lymphoma; Z92.3 Personal history of irradiation; J43.9 Emphysema, unspecified; R91.8 Other nonspecific abnormal finding of lung field
CPT/HCPCS: 99214

== ENCOUNTER → 2025-04-27 10:54 | Outpatient (BNVA) | payer MEDICARE, SELFPAY | PROVIDERS: PCP Internal Medicine; Visit Provider Nurse Practitioner Family | DX: R06.02 Shortness of breath (principal); J43.9 Emphysema, unspecified; R91.8 Other nonspecific abnormal finding of lung field; Z92.3 Personal history of irradiation; Z85.71 Personal history of Hodgkin lymphoma; Z85.118 Personal history of other malignant neoplasm of bronchus and lung | CPT/HCPCS: 99212 ==